=== PATIENT | female | born 1985 | race Caucasian/White ===

== ENCOUNTER 2020-10-18 09:53 | Emergency (ER) | payer OTHER, SELFPAY ==
[2020-10-18 10:04] VITALS: BP 144/97; PULSE 92; RESP 18; TEMP 36.8; O2SAT 98; BMI 30.9
--- NOTE | 2020-10-18 10:31 | ECG_ITS ---
Test Reason : CHEST DISCOMFORT Blood Pressure : / mmHG Vent. Rate : 084 BPM Atrial Rate : 084 BPM P-R Int : 132 ms QRS Dur : 082 ms QT Int : 378 ms P-R-T Axes : 065 012 022 degrees QTc Int : 446 ms Normal sinus rhythm Nonspecific ST abnormality Abnormal ECG When compared with ECG of 31-JUL-2020 20:13, T wave amplitude has decreased in Anterolateral leads Heart rate has increased Referred By: Madelyn Hurd Electronically Signed By:VIRAL MARTINEZ MD
--- NOTE | 2020-10-18 10:31 | XR_ITS ---
EXAMINATION: XR CHEST CLINICAL INFORMATION: Chest pain COMPARISON: Chest radiographs 07/31/2020, 12/23/2019 TECHNIQUE: Portable upright AP view of the chest was obtained. FINDINGS: The lungs are clear. There is no pneumothorax, pleural reaction, airspace consolidation, or effusion. The costophrenic sulci are clear. The heart is normal in size. The hilar and mediastinal contours and bony structures are unremarkable. XR/XR chest 1V IMPRESSION: Unremarkable examination.
--- NOTE | 2020-10-18 10:39 | ED_ITS ---
HPI - Chest Pain General Chief Complaint: Chest Pain Stated Complaint: chest pain, sob Time Seen by Provider: 10/18/20 10:31 History of Present Illness HPI narrative: Patient is a 34-year-old female presents today with having chest pain that is mid chest radiating to the left side. It lasts a few seconds each time it is improved with the breath. Patient has been having it for few days. No history of blood clot no history of leg swelling no history of control pills patient is from home. No history diabetes, hypertension, mi, family history of RI. No trauma. No coughing or congestion or upper respiratory symptoms. No diaphoresis. Related Data Allergies Allergy/AdvReac Type Severity Reaction Status Date / Time amitriptyline [AMITRIPTYLINE] Allergy Unknown UNKNOWN Unverified 08/08/20 19:39 Review of Systems Review of Systems: Constitutional: No Weight loss, No Fever, No Chills, No Night Sweats, No Fatigue, No Malaise ENT/Mouth: No Hearing loss, No Ear Pain, No Nasal Congestion, No Sinus Pain, No Hoarseness, No sore throat, No Rhinorrhea, No Swallowing Difficulty Eyes: No Eye Pain, No Swelling, No Redness, No Foreign Body, No Discharge, No Vision Changes Cardiovascular: No Chest Pain, No SOB, No Dyspnea on Exertion, No Orthopnea, No Edema, No Palpitations Respiratory: No Cough, No Sputum, No Wheezing, No Smoke Exposure, No Dyspnea Gastrointestinal: No Nausea, No Vomiting, No Diarrhea, No Constipation, No abd ominal Pain, No Hematochezia, No Melena Genitourinary: no irregular bleeding, No Dysuria, No Urinary Frequency, No Hematuria, No Urinary Incontinence, No Urgency, No Flank Pain, No Urinary Flow Changes, No Hesitancy Musculoskeletal: No joint pain, No Myalgias, No Joint Swelling Skin: No Skin Lesions, No rash Neuro: No Weakness, No Numbness, No Paresthesias, No Loss of Consciousness, No Dizziness, No Headache Psych: No Anxiety/Panic, No Depression, No SI/HI/AH/VH, No Social Issues, Heme/Lymph: No Bruising, No Bleeding,No Lymphadenopathy Endocrine: No Polyuria, No Polydipsia, No Temperature Intolerance Yes all other systems are reviewed and are negative [facility] Past Medical History Attestation statement: The following information was validated with the patient. Medical History Asthma HTN (hypertension) Migraine Surgical History Tubal ligation status Social History Social History Smoking Status: Never smoker Use of substances other than those prescribed or required for medical reasons: No Advance Directives: No Advance Directives Information Provided: No Physical Exam Vital Signs: Vital Signs: Last Vital Signs Temp 98.6 F 10/18/20 12:38 Pulse 88 10/18/20 13:56 Resp 16 10/18/20 13:56 BP 127/88 10/18/20 13:56 Pulse Ox 99 10/18/20 13:56 Body Mass Index 30.9 Appearance: Alert. Oriented X3. No acute distress. Eyes: Pupils equal, round and reactive to light. ENT: Pharynx normal. Neck: Normal inspection. Neck supple. No lymph nodes noted. No crepitus CVS: Normal heart rate and rhythm. Pulses normal. Normal S1 and S2 Respiratory: No respiratory distress. Breath sounds normal. No Wheezing. No rales Abdomen: Soft and nontender. No rigidity. No distention. good BS x4 Skin: Skin warm and dry. Normal skin color. Normal skin turgor. Extremities: No lower extremity edema. Neurovascular intact to all extremities. No Lacerations. No Rash Neuro: Oriented X 3. No motor deficit. No sensory deficit. Moving all extermities. No slurred speech MDM - Chest Pain MDM Narrative Medical decision making narrative: Patient's chest pain atypical for ACS. 34 years old. No significant cardiac risk. If troponin is negative patient's heart score is less than 3. Patient's troponin was negative. Her D-dimer however were slightly elevated. A CTA was done there is no evidence for PE no evidence for dissection no evidence for pneumothorax no evidence for rib fracture. There is no skin lesion to suggest patient has also will discharge patient home close follow-up outpatient basis Differential Diagnosis Differential diagnosis: Likely fracture of rib, pneumothorax, unstable angina pectoris, atypical chest pain, st elevation myocardial infarction and chest pain Medical Records Data Attestation: I reviewed the patient's medical records. Lab Data Attestation: I reviewed the patient's lab results. Result diagrams: 10/18/20 10:44 10/18/20 10:44 Labs: Lab Results 10/18/20 10/18/20 10/18/20 Range/Units 10:44 10:44 10:44 WBC 6.3 (4.8-10.8) X10*3/uL RBC 4.33 (4.20-5.50) X10*6/uL Hgb 13.1 (12.0-16.0) g/dl Hct 39.3 (37-47) % MCV 90.8 (80-98) fL MCH 30.3 (27.0-33.0) pg MCHC 33.3 (31.0-35.0) g/dl RDW 12.0 (11.0-16.0) % Plt Count 280 (160-400) X10*3/uL MPV 9.6 (9.4-12.3) fL Immature Gran % (Auto) 0.2 (0.0-0.4) % Neut % (Auto) 62.4 (45-73) % Lymph % (Auto) 30.8 (20-40) % [place] % (Auto) 5.7 (2-11) % Eos % (Auto) 0.6 (0-4) % Baso % (Auto) 0.3 (0-2) % Lymph # (Auto) 2.0 (1.2-4.9) X10*3/uL [place] # (Auto) 0.4 (0.1-1.2) X10*3/uL Eos # (Auto) 0.0 (0.0-0.4) X10*3/uL Baso # (Auto) 0.0 (0.0-0.2) X10*3/uL Abs Immat Gran (auto) 0.01 (0.00-0.03) X10*3/uL Absolute Neuts (auto) 4.0 (2.0-8.3) X10*3/uL Absolute Nucleated RBC 0.000 (0.0-0.012) X10*3/uL Nucleated RBC % (auto) 0.0 (0.0-0.2) /100WBC D-Dimer 422 NG/ML Hold Blue Top SEE NOTE Sodium 137 (135-145) mmol/L Potassium 4.3 (3.3-5.1) mmol/l Chloride 105 (96-108) mmol/L Carbon Dioxide 23 (22-29) mmol/L Anion Gap 13 (12-20) BUN 10 (9-16) mg/dL Creatinine 0.82 (0.5-1.4) mg/dL Estim Creat Clear Calc 101.7 Estimated GFR > 60 Random Glucose 114 (60-115) mg/dL Calcium 8.9 (8.4-10.2) mg/dL Troponin I High Sens (<3.5-17.0) ng/L Urine Test (NEGATIVE) 10/18/20 10/18/20 Range/Units 10:44 11:46 WBC (4.8-10.8) X10*3/uL RBC (4.20-5.50) X10*6/uL Hgb (12.0-16.0) g/dl Hct (37-47) % MCV (80-98) fL MCH (27.0-33.0) pg MCHC (31.0-35.0) g/dl RDW (11.0-16.0) % Plt Count (160-400) X10*3/uL MPV (9.4-12.3) fL Immature Gran % (Auto) (0.0-0.4) % Neut % (Auto) (45-73) % Lymph % (Auto) (20-40) % [place] % (Auto) (2-11) % Eos % (Auto) (0-4) % Baso % (Auto) (0-2) % Lymph # (Auto) (1.2-4.9) X10*3/uL [place] # (Auto) (0.1-1.2) X10*3/uL Eos # (Auto) (0.0-0.4) X10*3/uL Baso # (Auto) (0.0-0.2) X10*3/uL Abs Immat Gran (auto) (0.00-0.03) X10*3/uL Absolute Neuts (auto) (2.0-8.3) X10*3/uL Absolute Nucleated RBC (0.0-0.012) X10*3/uL Nucleated RBC % (auto) (0.0-0.2) /100WBC D-Dimer NG/ML Hold Blue Top Sodium (135-145) mmol/L Potassium (3.3-5.1) mmol/l Chloride (96-108) mmol/L Carbon Dioxide (22-29) mmol/L Anion Gap (12-20) BUN (9-16) mg/dL Creatinine (0.5-1.4) mg/dL Estim Creat Clear Calc Estimated GFR Random Glucose (60-115) mg/dL Calcium (8.4-10.2) mg/dL Troponin I High Sens < 3.5 (<3.5-17.0) ng/L Urine Test NEGATIVE (NEGATIVE) Discharge Plan Discharge Clinical Impression: Atypical chest pain Patient Disposition: Home, Self-Care Instructions: Chest Pain (ED) Referrals: Calvin Chavze MD [Primary Care Provider] - 2 days
[2020-10-18] MEDS: Aspirin 81 MG TAB.CHEW 324 MG PO (10:48)
[2020-10-18 10:49] VITALS: BP 119/78; PULSE 98; RESP 20; O2SAT 97
[2020-10-18 10:52] LABS: MANUAL DIFF FLAG NO
[2020-10-18 10:54] LABS: Basophils Percent Auto 0.3 % (0-2); Eosinophils Percent Auto 0.6 % (0-4); Hematocrit 39.3 % (37-47); Hemoglobin 13.1 g/dl (12.0-16.0); Imm Gran Abs Auto 0.01 X10*3/uL (0.00-0.03); Imm Gran Pct Auto 0.2 % (0.0-0.4); Lymphocytes Percent Auto 30.8 % (20-40); Mean Corpuscular HGB Conc 33.3 g/dl (31.0-35.0); Mean Corpuscular Hemoglobin 30.3 pg (27.0-33.0); Mean Corpuscular Volume 90.8 fL (80-98); Mean Platelet Volume 9.6 fL (9.4-12.3); Monocytes Absolute Auto 0.4 X10*3/uL (0.1-1.2); Monocytes Percent Auto 5.7 % (2-11); Neutrophils Percent Auto 62.4 % (45-73); Platelet Count 280 X10*3/uL (160-400); Red Blood Count 4.33 X10*6/uL (4.20-5.50); White Blood Count 6.3 X10*3/uL (4.8-10.8)
[2020-10-18 11:06] LABS: D Dimer 422 NG/ML
[2020-10-18 11:25] LABS: Anion Gap 13 (12-20); Blood Urea Nitrogen 10 mg/dL (9-16); Calcium 8.9 mg/dL (8.4-10.2); Carbon Dioxide 23 mmol/L (22-29); Chloride 105 mmol/L (96-108); Creatinine Clr Calc Pharmacy 101.7; Estimated Glomerular Filt Rate > 60; Glucose Random 114 mg/dL (60-115); Potassium 4.3 mmol/l (3.3-5.1); Sodium 137 mmol/L (135-145)
--- NOTE | 2020-10-18 11:28 | CT_ITS ---
EXAMINATION: CT ANGIOGRAM OF THE CHEST WITH AND WITHOUT CONTRAST (CT PULMONARY ANGIOGRAM FOR PE) CLINICAL INFORMATION: Chest pain COMPARISON: Chest radiographs 10/18/2020, CTA chest 07/31/2020 TECHNIQUE: Prior to contrast administration, noncontrast localization images were obtained. Subsequently, multidetector volumetric imaging was performed from the thoracic inlet to below the diaphragms following the administration of 65 mL Omnipaque 350 intravenous contrast. Sagittal, coronal, and MIP oblique sagittal reformatted images were obtained on the CT workstation, uploaded to PACS, and reviewed. This CT examination was performed using dose optimization techniques as appropriate, variously including the following: *Automated exposure control *Adjustment of mA and/or kV according to patient size (this includes techniques or standardized protocols for targeted exams where dose is matched to indication/reason for exam; i.e. extremities or head) *Use of iterative reconstruction technique Total exam dose-length product 311 mGy-cm FINDINGS: QUALITY OF STUDY/CONTRAST BOLUS: Satisfactory. PULMONARY ARTERIES: No central or segmental pulmonary emboli. THORACIC AORTA: No aneurysm or dissection. LUNG: No focal consolidation, nodules or masses. No pneumothorax. PLEURA: No pleural effusion or pneumothorax. MEDIASTINUM: Normal heart size. No pericardial effusion. No hilar or mediastinal lymphadenopathy. No evidence of septal bowing or right heart strain. CHEST WALL/AXILLA: No axillary or internal mammary lymphadenopathy. OSSEOUS STRUCTURES: No acute or suspicious osseous abnormality. UPPER ABDOMEN: Unremarkable. No reflux of contrast into the hepatic veins to suggest elevated right heart pressures. Stable subcentimeter nodule left subphrenic space likely splenule. CT/CT angio chest PE protocol IMPRESSION: 1. No pulmonary embolism or thoracic aortic dissection. 2. Lungs clear. VTE: negative
[2020-10-18 11:31] LABS: Troponin-I High Sensitivity < 3.5 ng/L (<3.5-17.0)
--- NOTE | 2020-10-18 11:49 | PC.NURSE ---
pt reports no improvement in her chest pain, pain is still 8/10, sharp/stabbing that comes and goes, ns on the monitor at this time
[2020-10-18 11:56] LABS: UPreg QC Valid YES; Urine Pregnancy NEGATIVE (NEGATIVE)
[2020-10-18 12:38] VITALS: BP 118/85; PULSE 85; RESP 18; TEMP 37; O2SAT 99
--- NOTE | 2020-10-18 12:40 | PC.NURSE ---
patient a&ox3, vss, playground monitor nsr 80s-90s, pt states she has 8/10 pain under rt breast area, will notify provider and continue to monitor.
[2020-10-18 13:56] VITALS: BP 127/88; PULSE 88; RESP 16; O2SAT 99
[2020-10-18] MEDS: iohexoL 350 MG/ML 100 ML INFUS..BTL 65 ML IV (14:20)
--- NOTE | 2020-10-18 14:45 | ED_ITS ---
HPI - Chest Pain General Chief Complaint: Chest Pain Stated Complaint: chest pain, sob Time Seen by Provider: 10/18/20 10:31 Related Data Previous Rx's Medication Instructions Recorded albuterol sulfate 90 mcg/actuation 2 puff INHALATION Q6H PRN #8.5 g 12/07/21 aerosol inhaler Allergies Allergy/AdvReac Type Severity Reaction Status Date / Time amitriptyline [AMITRIPTYLINE] Allergy Unknown UNKNOWN Verified 10/20/21 18:07 [facility] Past Medical History Medical History Asthma HTN (hypertension) Migraine Surgical History Tubal ligation status Physical Exam Vital Signs: Vital Signs: Last Vital Signs Temp 98.6 F 10/18/20 12:38 Pulse 88 10/18/20 13:56 Resp 16 10/18/20 13:56 BP 127/88 10/18/20 13:56 Pulse Ox 99 10/18/20 13:56 BMI result Body Mass Index 30.9 MDM - Chest Pain Lab Data Result diagrams: 10/18/20 10:44 10/18/20 10:44 Labs: Lab Results 10/18/20 10/18/20 10/18/20 Range/Units 10:44 10:44 10:44 WBC 6.3 (4.8-10.8) X10*3/uL RBC 4.33 (4.20-5.50) X10*6/uL Hgb 13.1 (12.0-16.0) g/dl Hct 39.3 (37-47) % MCV 90.8 (80-98) fL MCH 30.3 (27.0-33.0) pg MCHC 33.3 (31.0-35.0) g/dl RDW 12.0 (11.0-16.0) % Plt Count 280 (160-400) X10*3/uL MPV 9.6 (9.4-12.3) fL Immature Gran % (Auto) 0.2 (0.0-0.4) % Neut % (Auto) 62.4 (45-73) % Lymph % (Auto) 30.8 (20-40) % [place] % (Auto) 5.7 (2-11) % Eos % (Auto) 0.6 (0-4) % Baso % (Auto) 0.3 (0-2) % Lymph # (Auto) 2.0 (1.2-4.9) X10*3/uL [place] # (Auto) 0.4 (0.1-1.2) X10*3/uL Eos # (Auto) 0.0 (0.0-0.4) X10*3/uL Baso # (Auto) 0.0 (0.0-0.2) X10*3/uL Abs Immat Gran (auto) 0.01 (0.00-0.03) X10*3/uL Absolute Neuts (auto) 4.0 (2.0-8.3) X10*3/uL Absolute Nucleated RBC 0.000 (0.0-0.012) X10*3/uL Nucleated RBC % (auto) 0.0 (0.0-0.2) /100WBC D-Dimer 422 NG/ML Hold Blue Top SEE NOTE Sodium 137 (135-145) mmol/L Potassium 4.3 (3.3-5.1) mmol/l Chloride 105 (96-108) mmol/L Carbon Dioxide 23 (22-29) mmol/L Anion Gap 13 (12-20) BUN 10 (9-16) mg/dL Creatinine 0.82 (0.5-1.4) mg/dL Estim Creat Clear Calc 101.7 Estimated GFR > 60 Random Glucose 114 (60-115) mg/dL Calcium 8.9 (8.4-10.2) mg/dL Troponin I High Sens (<3.5-17.0) ng/L Urine Test (NEGATIVE) 10/18/20 10/18/20 Range/Units 10:44 11:46 WBC (4.8-10.8) X10*3/uL RBC (4.20-5.50) X10*6/uL Hgb (12.0-16.0) g/dl Hct (37-47) % MCV (80-98) fL MCH (27.0-33.0) pg MCHC (31.0-35.0) g/dl RDW (11.0-16.0) % Plt Count (160-400) X10*3/uL MPV (9.4-12.3) fL Immature Gran % (Auto) (0.0-0.4) % Neut % (Auto) (45-73) % Lymph % (Auto) (20-40) % [place] % (Auto) (2-11) % Eos % (Auto) (0-4) % Baso % (Auto) (0-2) % Lymph # (Auto) (1.2-4.9) X10*3/uL [place] # (Auto) (0.1-1.2) X10*3/uL Eos # (Auto) (0.0-0.4) X10*3/uL Baso # (Auto) (0.0-0.2) X10*3/uL Abs Immat Gran (auto) (0.00-0.03) X10*3/uL Absolute Neuts (auto) (2.0-8.3) X10*3/uL Absolute Nucleated RBC (0.0-0.012) X10*3/uL Nucleated RBC % (auto) (0.0-0.2) /100WBC D-Dimer NG/ML Hold Blue Top Sodium (135-145) mmol/L Potassium (3.3-5.1) mmol/l Chloride (96-108) mmol/L Carbon Dioxide (22-29) mmol/L Anion Gap (12-20) BUN (9-16) mg/dL Creatinine (0.5-1.4) mg/dL Estim Creat Clear Calc Estimated GFR Random Glucose (60-115) mg/dL Calcium (8.4-10.2) mg/dL Troponin I High Sens < 3.5 (<3.5-17.0) ng/L Urine Test NEGATIVE (NEGATIVE) Discharge Plan Discharge Clinical Impression: Atypical chest pain Patient Disposition: Home, Self-Care Instructions: Chest Pain (ED) Prescriptions: No Action albuterol sulfate 90 mcg/actuation HFA aerosol inhaler 2 puff inhalation Q6H PRN (Reason: shortness of breath or wheezing) Qty: 8.5 0RF Referrals: Calvin Chavez MD [Primary Care Provider] - 2 days Stand Alone Forms: Work/School Release Interventions: ED Discharge Assessment Last Done: 10/18/20 14:57 Discharge Date/Time: 10/18/20 14:57
== END 2020-10-18 14:57 | disposition home or self-care (01) ==
PROVIDERS: Emergency Provider Emergency Medicine Emergency Medical Services; PCP Family Medicine
DX: R07.89 Other chest pain (principal); R06.02 Shortness of breath
CPT/HCPCS: 36415; 71045; 71275; 80048; 81025; 84484; 85025; 85379; 93005; 99284; Q9967

== ENCOUNTER 2021-03-03 17:04 | Emergency (ER) | payer OTHER, SELFPAY | END 2021-03-03 19:50 | disposition left against medical advice (07) | PROVIDERS: Emergency Provider Emergency Medicine; PCP Family Medicine | DX: R10.9 Unspecified abdominal pain (principal); I10 Essential (primary) hypertension; J45.909 Unspecified asthma, uncomplicated ==

== ENCOUNTER 2021-03-04 18:42 | Emergency (ER) | payer OTHER, SELFPAY | END 2021-03-04 20:09 | disposition left against medical advice (07) | PROVIDERS: Emergency Provider Emergency Medicine; PCP Family Medicine | DX: R10.9 Unspecified abdominal pain (principal) ==

== ENCOUNTER 2021-08-27 18:29 | Emergency (ER) | payer OTHER, SELFPAY | END 2021-08-27 21:20 | disposition left against medical advice (07) | PROVIDERS: Emergency Provider Emergency Medicine; PCP Family Medicine | DX: R52 Pain, unspecified (principal); J02.9 Acute pharyngitis, unspecified; R51.9 Headache, unspecified ==

== ENCOUNTER 2021-10-20 17:50 | Emergency (ER) | payer OTHER, SELFPAY ==
--- NOTE | ~2021-10-20 | XR_ITS ---
EXAMINATION: XR CHEST CLINICAL INFORMATION: Cough COMPARISON: Chest CT 10/18/2020 TECHNIQUE: Frontal view of the chest was obtained. FINDINGS: No significant abnormality is noted involving the heart, lungs, mediastinum, bony thorax or soft tissues. XR/XR chest 1V IMPRESSION: No acute pulmonary disease.
[2021-10-20 18:07] VITALS: BP 151/99; PULSE 86; RESP 18; TEMP 36.6; O2SAT 100; BMI 34.1
[2021-10-20 20:20] VITALS: BP 139/103; PULSE 87; RESP 18; TEMP 36.9; O2SAT 99
[2021-10-20 20:37] LABS: COVID-19 Test Negative (Negative)
--- NOTE | 2021-10-20 21:15 | ED_ITS ---
HPI - URI/Sore Throat General Chief Complaint: Upper Respiratory Symptoms Stated Complaint: flu like Source: patient Mode of arrival: ambulatory Limitations: no limitations History of Present Illness HPI Narrative: 35-year-old female presents to ED for COVID testing due to being exposed to her who symptomatic and he was exposed to a friend who tested positive for COVID. Patient's only complaint is runny nose and body aches. Patient states no chest pain, leg swelling, calf pain, or coughing up blood. Related Data Allergies Allergy/AdvReac Type Severity Reaction Status Date / Time amitriptyline [AMITRIPTYLINE] Allergy Unknown UNKNOWN Verified 10/20/21 18:07 Review of Systems Review of Systems: Yes all other systems are reviewed and are negative Constitutional: Constitutional: Reports as per HPI, Reports no additional constitutional complaints and Reports body ache(s) Eyes: Eyes: Reports as per HPI and Reports no additional eye complaints ENT: Reports system reviewed and no additional complaints, except as documented, Reports as per HPI and Reports nasal congestion Cardiovascular: Cardiovascular: Reports as per HPI and Reports no additional cardiovascular complaints Respiratory: Respiratory: Reports as per HPI and Reports no additional respiratory complaints Gastrointestinal: Gastrointestinal: Reports as per HPI and Reports no additional gastrointestinal complaints Genitourinary: Genitourinary: Reports no additional female genitourinary complaints and Reports as per HPI Musculoskeletal: Musculoskeletal: Reports no additional musculoskeletal complaints and Reports as per HPI Neurologic: Reports system reviewed and no additional complaints, except as documented and Reports as per HPI Psychiatric: Psychiatric: Reports no additional psychiatric complaints and Reports as per HPI PMFSH Past Medical History Medical History Asthma HTN (hypertension) Migraine Surgical History Tubal ligation status Social History Social History Advance Directives: No Advance Directives Information Provided: Yes Patient : No Physical Exam Vital Signs: Vital Signs: Last Vital Signs Temp 98.5 F 10/20/21 20:20 Pulse 87 10/20/21 20:20 Resp 18 10/20/21 20:20 BP 139/103 H 10/20/21 20:20 Pulse Ox 99 10/20/21 20:20 Body Mass Index 34.1 Const: General: cooperative, healthy appearing, comfortable, no acute distress, well developed, alert, awake and Physically active Orientation/consciousness: patient oriented x3 HENMT: Head: Yes normal to inspection, Yes No palpable skull fracture present, Yes normocephalic, Yes atraumatic and No abrasion Ears: hearing grossly normal bilaterally, external ears normal, TM's normal bilaterally, EAC's normal, mastoids normal and no periauricular adenopathy Throat: Yes posterior oropharynx normal, Yes tonsils normal and Yes uvula midline Eyes: General: appearance normal, both eyes and all related structures Neck: Neck: Yes normal visual inspection, Yes full ROM, Yes no lymphadenopathy, Yes no meningeal signs, Yes trachea midline, Yes supple, No anterior neck swelling and No tender Chest: Chest palpation & inspection: normal inspection of the chest and normal palpation of entire chest wall Resp: Effort & Inspection: normal respiratory effort and able to speak in complete sentences Auscultation: clear to auscultation bilaterally Cardio: Jugular venous distension: no JVD Heart sounds: S1 normal heart sound present and S2 normal heart sound present GI: Inspection: Yes normal to inspection and No abdominal wall ecchymosis Palpation (GI): Soft to palpation, not firm, nontender, no guarding and not rigid : General: No CVA tenderness and Yes no CVA tenderness Back/Spine/Pelvis: Back: no CVA tenderness, No CVA tenderness and No back tenderness Skin: General skin exam: no rashes or lesions noted and elasticity normal Neuro: General: patient oriented x3, gait normal, no meningeal signs and CN's II-XI intact bilaterally Cranial nerves: Yes CN's II-XII intact bilaterally Extrem: General: Yes normal to inspection and Yes full ROM Psych: Appearance: grossly normal, well kempt and not disheveled Course Course Course Narrative: Patient will have COVID swab and chest x-ray ordered. Reevaluation(s) Reevaluation #1: COVID and chest x-ray all normal patient to be discharged. Patient informed of her elevated blood pressure and told to follow up with her PCP in regards to her blood pressure. MDM - URI/Sore Throat MDM Narrative Medical decision making narrative: Viral syndrome Lab Data Labs: Lab Results 10/20/21 Range/Units 20:13 COVID-19 (DE) Negative (Negative) COVID-19 Clin Com See Note Discharge Plan Discharge Clinical Impression: Viral syndrome, Upper respiratory infection Patient Disposition: Home, Self-Care Instructions: Upper Respiratory Infection (ED), Viral Syndrome (ED) Additional Instructions: Return to the ED immediately for any swelling of lower extremities, coughing up blood, cyst chest pain, shortness of breath on exertion, weakness, dizziness, or any other concerning symptoms. Your COVID swab came back negative. This may be a false negative. Recommend retesting for COVID-19 in 72 hours if symptoms are not improved. Stand Alone Forms: Work/School Release Interventions: ED Discharge Assessment Last Done: 10/20/21 21:33 Discharge Date/Time: 10/20/21 21:37 Print Language: Armenian
== END 2021-10-20 21:37 | disposition home or self-care (01) ==
PROVIDERS: Emergency Provider Emergency Medicine; PCP Family Medicine
DX: B34.9 Viral infection, unspecified (principal); J06.9 Acute upper respiratory infection, unspecified; Z20.822 Contact with and (suspected) exposure to COVID-19
CPT/HCPCS: 36415; 71045; 87635; 99283; 99284

== ENCOUNTER 2021-11-20 08:55 | Outpatient (REF) | payer OTHER, SELFPAY ==
[2021-11-20 09:56] LABS: COVID-19 Test Negative (Negative)
== END 2021-11-20 08:56 | disposition home or self-care (01) ==
LOC: HO.LAB 08:55
PROVIDERS: Visit Provider Internal Medicine
DX: Z20.822 Contact with and (suspected) exposure to COVID-19 (principal)
CPT/HCPCS: 36415; 87635; C9803

== ENCOUNTER 2021-11-23 18:19 | Emergency (ER) | payer OTHER, SELFPAY ==
[2021-11-23 18:35] VITALS: BP 136/95; PULSE 97; RESP 18; TEMP 36.7; O2SAT 99; BMI 34.1
[2021-11-23 19:24] LABS: Appearance Urine HAZY; Color Urine YELLOW; Glucose Urine UA NEG (NEG); Leukocyte Esterase Urine TRACE (NEG); Nitrite Urine NEG (NEG); Specific Gravity - Urine 1.025 (1.005-1.025); UACC Culture Trigger YES; Urine Blood TRACE (NEG); Urine Ketones 5 MG/DL (NEG); Urine Protein TRACE MG/DL (NEG-TRACE)
[2021-11-23 19:32] LABS: Amorphous Sediment Urine 1+ /LPF; Bacteria Urine 1+ /LPF; Mucus Urine 1+ /LPF; RBC Urine 0-2 /HPF (0); Squamous Epithelial Cell Urine 2+ /LPF
[2021-11-23 20:37] LABS: MANUAL DIFF FLAG NO
[2021-11-23 20:39] LABS: Basophils Percent Auto 0.3 % (0-2); Eosinophils Percent Auto 0.5 % (0-4); Hematocrit 42.5 % (37.0-47.0); Imm Gran Abs Auto 0.01 X10*3/uL (0.00-0.03); Imm Gran Pct Auto 0.2 % (0.0-0.4); Lymphocytes Absolute Auto 2.6 X10*3/uL (1.2-4.9); Lymphocytes Percent Auto 39.1 % (20-40); Mean Corpuscular HGB Conc 32.9 g/dl (31.0-35.0); Mean Corpuscular Hemoglobin 29.4 pg (27.0-33.0); Mean Corpuscular Volume 89.1 fL (80.0-98.0); Mean Platelet Volume 9.9 fL (9.4-12.3); Monocytes Absolute Auto 0.4 X10*3/uL (0.1-1.2); Monocytes Percent Auto 5.4 % (2-11); Neutrophils Absolute Auto 3.6 x10*3/uL (2.0-8.3); Neutrophils Percent Auto 54.5 % (45-73); Platelet Count 278 X10*3/uL (160-400); Red Blood Count 4.77 X10*6/uL (4.20-5.50); Red Cell Distribution Width 13.2 % (11.0-16.0); White Blood Count 6.6 X10*3/uL (4.8-10.8)
[2021-11-23 20:59] LABS: HCG Quantitative < 2 mIU/mL
[2021-11-23 21:11] LABS: Alanine Aminotransferase 285 U/L (0-31); Albumin Level 4.5 g/dL (3.5-5.0); Alkaline Phosphatase 79 U/L (39-117); Anion Gap 11 (12-20); Aspartate Amino Transferase 193 U/L (5-31); Bilirubin Total 0.7 mg/dL (0.0-1.0); Blood Urea Nitrogen 13 mg/dL (9-16); Calcium 9.9 mg/dL (8.4-10.2); Carbon Dioxide 26 mmol/L (22-29); Chloride 107 mmol/L (96-108); Creatinine Clr Calc Pharmacy 101.4; Estimated Glomerular Filt Rate > 60; Glucose Random 101 mg/dL (60-115); Lipase 66 U/L (8-78); Potassium 4.6 mmol/L (3.3-5.1); Sodium 139 mmol/L (135-145); Total Protein 7.9 g/dL (6.5-8.0)
== END 2021-11-24 01:20 | disposition left against medical advice (07) ==
PROVIDERS: Emergency Provider Emergency Medicine; PCP Family Medicine
DX: R11.2 Nausea with vomiting, unspecified (principal)
CPT/HCPCS: 36415; 80053; 81001; 83690; 84702; 85025; 87086; 87147; 99283

== ENCOUNTER 2021-12-07 08:48 | Emergency (ER) | payer OTHER, SELFPAY ==
[2021-12-07 09:05] VITALS: BP 129/87; PULSE 96; RESP 16; TEMP 35.5; O2SAT 99; BMI 34.0
--- NOTE | 2021-12-07 09:08 | ED_ITS ---
HPI - URI/Sore Throat General Chief Complaint: Upper Respiratory Symptoms Stated Complaint: covid symptoms Time Seen by Provider: 12/07/21 09:02 Source: patient Mode of arrival: ambulatory Limitations: no limitations History of Present Illness HPI Narrative: 36-year-old female past medical history significant for asthma, hypertension, presents to the emergency department requesting a COVID test. She is experiencing subjective fevers, chills, body aches, malaise, fatigue, headache, sore throat x 3 days. She tells me that her 2 children at home are sick with COVID. She is vaccinated Pfizer x2.?Denies SOB, CP, RODRIGUES, weakness. Eating and drinking well. In good spirits. No other complaints at this time. MD elicited complaint: fever, sore throat and nasal congestion Onset (ago): day(s) Consistency: constant Severity: mild Able to tolerate fluids by mouth: Yes Exacerbating factors: nothing Relieving factors: nothing Context: sick contacts (Children at home) Associated symptoms: fever (Subjective), chills, headache (Gradual, feels like her typical) and sore throat Treatments prior to arrival: none Related Data Previous Rx's Medication Instructions Recorded albuterol sulfate 90 mcg/actuation 2 puff INHALATION Q6H PRN #8.5 g 12/07/21 aerosol inhaler Allergies Allergy/AdvReac Type Severity Reaction Status Date / Time amitriptyline [AMITRIPTYLINE] Allergy Unknown UNKNOWN Verified 10/20/21 18:07 Review of Systems Review of Systems: Constitutional : positive Fever, positive Chills, positive fatigue, positive Malaise ENT/Mouth : positive sore throat, No runny nose Eyes: No Discharge Cardiovascular : No Chest Pain, No SOB Respiratory : No Cough, No Sputum Gastrointestinal : No Nausea, No Vomiting, No Diarrhea Genitourinary : No Dysuria, No Urinary Frequency Musculoskeletal : positive Myalgia Skin : No rash Neuro : positive Headache, no vision changes, no dizziness Yes all other systems are reviewed and are negative [facility] Past Medical History Attestation statement: The following information was validated with the patient. Source: old records reviewed and nursing notes reviewed Medical History Asthma HTN (hypertension) Migraine Surgical History Tubal ligation status Physical Exam Vital Signs: Vital Signs: Last Vital Signs Temp 96 F L 12/07/21 09:05 Pulse 96 12/07/21 09:05 Resp 16 12/07/21 09:05 BP 129/87 12/07/21 09:05 Pulse Ox 99 12/07/21 09:05 BMI result Body Mass Index 34.0 VSS Appearance: Alert.? Oriented X3.? No acute distress.? Head: Normocephalic, atraumatic, no step-offs or deformities Eyes: Pupils equal, round and reactive to light.? ENT: Pharynx normal.? Neck: Normal inspection.? Neck supple.? CVS: Normal heart rate and rhythm.? Pulses normal.? Respiratory: No respiratory distress.? Breath sounds normal.? Abdomen: Soft and nontender.? Skin: Skin warm and dry.? Normal skin color.? Normal skin turgor.? Extremities: No lower extremity edema.? No calf ttp. 5/5 strength to bilateral upper and lower extremities Neuro: Oriented X 3.? No motor deficit.? No sensory deficit. Course Reevaluation(s) Reevaluation #1: Patient is noted to be COVID neagtive, however, she has sick contacts at home and has only been experiencing symptoms for 3 days, it might be too soon to test. Vital signs are stable however.? I have given patient strict return precautions.? I have educated on diagnosis and treatment plan.? I have given them red flag symptoms and have told him to return with new or worsening symptoms.? I have outlined these on their discharge. Unlikely that this is ACS, patient denies chest pain. Lungs are clear unlikely pneumonia. Patient's vital signs stable, patient is not tachycardic, tachypneic or hypoxic, no calf tenderness to palpation, unlikely PE. Time: 09:17 MDM - URI/Sore Throat MDM Narrative Medical decision making narrative: 911 36 yo F presents with COVID like symptoms. Family member sick at home. Vaccinated with Pfizer x2. Physical examination benign Plan COVID test Medical Records Attestation: I reviewed the patient's medical records. Lab Data Attestation: I reviewed the patient's lab results. Labs: Lab Results 12/07/21 Range/Units 09:08 COVID-19 (DE) Negative (Negative) COVID-19 Clin Com See Note Critical Care Time Critical Care Time Critical Care Time: No Discharge Plan Discharge Clinical Impression: Upper respiratory infection Patient Disposition: Home, Self-Care Instructions: COVID-19 (Coronavirus Disease 2019) (ED) Additional Instructions: Take your medications as prescribed. If you were prescribed antibiotics today, it is important that you take your medication to their entirety, do not skip any doses, do not finish them early. Today you tested negative for COVID-19, however, your experiencing symptoms that are consistent with COVID and you have sick contacts therefore we will treat was if you are positive. Take Ibuprofen or Tylenol as needed for fevers or body aches. Quarantine for 5 days and ensure you wear a mask. After 5 days you should wear a mask for 5 days after that. Practice social distancing and good hand hygiene. Drink plenty of fluids. Follow-up with your primary care provider this week. Return to the emergency department with new or worsening symptoms. In case of emergency call 911 You can purchase a pulse oximeter from your local pharmacy or grocery store, and monitor your oxygen saturation if it goes below 94% you should return to the emergency department for further evaluation. Prescriptions: New albuterol sulfate 90 mcg/actuation HFA aerosol inhaler 2 puff inhalation Q6H PRN (Reason: shortness of breath or wheezing) Qty: 8.5 RF: 0 Referrals: Calvin Chavez MD [Primary Care Provider] - 2 days Stand Alone Forms: Work/School Release
[2021-12-07 09:50] LABS: COVID-19 Test Negative (Negative); IDNOW Serial# 55D5AD1C
== END 2021-12-07 10:17 | disposition home or self-care (01) ==
LOC: HO.ED 10:10
PROVIDERS: Physician Assistant; Emergency Provider Emergency Medicine; PCP Family Medicine
DX: J06.9 Acute upper respiratory infection, unspecified (principal); R50.9 Fever, unspecified; R51.9 Headache, unspecified; Z20.822 Contact with and (suspected) exposure to COVID-19; Z79.899 Other long term (current) drug therapy
CPT/HCPCS: 87635; 99283

== ENCOUNTER 2021-12-10 09:36 | Outpatient (REF) | payer OTHER, SELFPAY ==
[2021-12-10 10:21] LABS: COVID-19 Test Negative (Negative); IDNOW Serial# 16C4AD1C
== END 2021-12-10 09:37 | disposition home or self-care (01) ==
LOC: HO.LAB 09:36
PROVIDERS: Visit Provider Internal Medicine
DX: Z20.822 Contact with and (suspected) exposure to COVID-19 (principal)
CPT/HCPCS: 87635; C9803

== ENCOUNTER 2022-04-26 05:52 | Emergency (ER) | payer OTHER, SELFPAY ==
--- NOTE | ~2022-04-26 | XR_ITS ---
EXAMINATION: CR CHEST CLINICAL INFORMATION: Chest pain. COVID positive patient. COMPARISON: Chest x-ray dated 10/20/2021 and 10/18/2020. TECHNIQUE: AP upright portable view of the chest was obtained. FINDINGS: EKG leads overlie the chest. The cardiomediastinal silhouette is within normal limits in size. Lungs bilaterally are symmetrically expanded and clear. No focal consolidation, effusion or pneumothorax is seen. Bony structures are unremarkable. XR/XR chest 1V IMPRESSION: Unremarkable examination.
[2022-04-26 06:02] VITALS: BP 153/103; PULSE 115; RESP 20; TEMP 36.8; O2SAT 97; BMI 32.5
--- NOTE | 2022-04-26 06:05 | ECG_ITS ---
Test Reason : CHEST PAIN Blood Pressure : / mmHG Vent. Rate : 105 BPM Atrial Rate : 105 BPM P-R Int : 134 ms QRS Dur : 084 ms QT Int : 338 ms P-R-T Axes : 066 005 -01 degrees QTc Int : 446 ms Sinus tachycardia Nonspecific ST abnormality Abnormal ECG When compared with ECG of 18-OCT-2020 10:06, No significant change was found Referred By: Generic ED Physician Electronically Signed By:PADMINI MATOS MD
[2022-04-26 06:35] VITALS: BP 129/83; PULSE 98; RESP 18; TEMP 37.7; O2SAT 98
[2022-04-26 06:35] LABS: MANUAL DIFF FLAG NO
[2022-04-26 06:40] LABS: Basophils Percent Auto 0.5 % (0-2); Eosinophils Percent Auto 0.5 % (0-4); Imm Gran Abs Auto 0.03 X10*3/uL (0.00-0.03); Imm Gran Pct Auto 0.5 % (0.0-0.4); Lymphocytes Absolute Auto 0.7 X10*3/uL (1.2-4.9); Lymphocytes Percent Auto 10.3 % (20-40); Mean Corpuscular HGB Conc 33.3 g/dl (31.0-35.0); Mean Corpuscular Hemoglobin 28.6 pg (27.0-33.0); Mean Corpuscular Volume 85.7 fL (80.0-98.0); Mean Platelet Volume 10.3 fL (9.4-12.3); Monocytes Absolute Auto 0.8 X10*3/uL (0.1-1.2); Monocytes Percent Auto 12.5 % (2-11); Neutrophils Absolute Auto 4.8 x10*3/uL (2.0-8.3); Neutrophils Percent Auto 75.7 % (45-73); Platelet Count 228 X10*3/uL (160-400); Red Blood Count 4.55 X10*6/uL (4.20-5.50); Red Cell Distribution Width 14.1 % (11.0-16.0); White Blood Count 6.3 X10*3/uL (4.8-10.8)
[2022-04-26 06:41] LABS: COVID-19 Test Positive (Negative)
[2022-04-26 06:49] LABS: Anion Gap 12 (12-20); Blood Urea Nitrogen 12 mg/dL (9-16); Calcium 8.8 mg/dL (8.4-10.2); Carbon Dioxide 23 mmol/L (22-29); Chloride 106 mmol/L (96-108); Estimated Glomerular Filt Rate > 60; Glucose Random 120 mg/dL (60-115); IDNOW Serial# 16C4AD1C; Influenza A Negative (Negative); Influenza B2 Negative (Negative); Potassium 4.2 mmol/L (3.3-5.1); Sodium 137 mmol/L (135-145)
[2022-04-26 06:54] LABS: Troponin-I High Sensitivity < 3.5 ng/L (<3.5-17.0)
[2022-04-26] MEDS: Benzonatate 100 MG CAPSULE 200 MG PO (06:58)
[2022-04-26] MEDS: Acetaminophen 325 MG TABLET 975 MG PO (06:59)
--- NOTE | 2022-04-26 07:01 | ED_ITS ---
HPI - Chest Pain General Chief Complaint: Chest Pain Stated Complaint: chest & lung pain, cough, asthmatic, n/d (04/24) Time Seen by Provider: 04/26/22 06:46 Source: patient and family () Mode of arrival: ambulatory History of Present Illness HPI narrative: 36-year-old female with history of asthma presents with nonstop coughing that has resulted in chest wall pain as well pain on breathing. Patient is been vaccinated in boosted for COVID-19 and also reports concomitant congestion, mild nausea, diarrhea and headache as well as body aches. Related Data Previous Rx's Medication Instructions Recorded albuterol sulfate 90 mcg/actuation 2 puff INHALATION Q6H PRN #8.5 g 12/07/21 aerosol inhaler benzonatate 200 mg capsule 200 mg PO TID PRN #14 cap 04/26/22 Allergies Allergy/AdvReac Type Severity Reaction Status Date / Time amitriptyline [AMITRIPTYLINE] Allergy Unknown UNKNOWN Verified 04/26/22 06:04 Review of Systems Review of Systems: Pertinent positives and negatives as stated in HPI 10 point review of systems otherwise negative. PMFSH Past Medical History Source: nursing notes reviewed Medical History Asthma HTN (hypertension) Migraine Surgical History Tubal ligation status Social History Social History Alcohol intake: current Alcohol intake frequency: holidays/special occasions only Patient Tobacco Use Status: Never used Tobacco Use of substances other than those prescribed or required for medical reasons: Yes Substance Use Type: Marijuana Substance Use Frequency: Daily Advance Directives: No Advance Directives Information Provided: No Physical Exam Vital Signs: Vital Signs: Last Vital Signs Temp 99.8 F 04/26/22 06:35 Pulse 98 04/26/22 06:35 Resp 18 04/26/22 06:35 BP 129/83 04/26/22 06:35 Pulse Ox 98 04/26/22 06:35 BMI result Body Mass Index 32.5 VITAL SIGNS: Reviewed. GENERAL: Well developed, well nourished, in no acute distress. HEAD: Normocephalic/atraumatic EYES: PERRLA, EOMI EARS: Ext canals without abnormality, TMs non-bulging and non-erythematous NOSE: Nares patent bilateral OROPHARYNX: no oral lesions noted, posterior pharynx clear and non-erythematous without noted tonsillar enlargement/erythema/exudates NECK: Supple, no adenopathy LUNGS: Normal breath sounds, mild tachypnea without significant expiratory wheeze/rhonchi/rales. SpO2<98> CARDIOVASCULAR: Regular rate and rhythm without noted murmurs ABDOMEN: Soft, non-tender, non-distended with bowel sounds. NEUROLOGIC: Alert and oriented x 4. Course Course Course Narrative: 36-year-old female with history and clinical presentation consistent with viral syndrome and on review of all investigations she has noted COVID-19 positivity. Patient was provided with combination analgesics as well as an antitussive and is otherwise discharged home in stable condition without evidence asthma exacerbation, oxygenating well on room air. MDM - Chest Pain Lab Data Result diagrams: 04/26/22 06:04/26/22 06:29 Labs: Lab Results 04/26/22 04/26/22 04/26/22 Range/Units 06:29 06:29 06:29 WBC 6.3 (4.8-10.8) X10*3/uL RBC 4.55 (4.20-5.50) X10*6/uL Hgb 13.0 (12.0-16.0) g/dl Hct 39.0 (37.0-47.0) % MCV 85.7 (80.0-98.0) fL MCH 28.6 (27.0-33.0) pg MCHC 33.3 (31.0-35.0) g/dl RDW 14.1 (11.0-16.0) % Plt Count 228 (160-400) X10*3/uL MPV 10.3 (9.4-12.3) fL Immature Gran % (Auto) 0.5 H (0.0-0.4) % Neut % (Auto) 75.7 H (45-73) % Lymph % (Auto) 10.3 L (20-40) % [place] % (Auto) 12.5 H (2-11) % Eos % (Auto) 0.5 (0-4) % Baso % (Auto) 0.5 (0-2) % Lymph # (Auto) 0.7 L (1.2-4.9) X10*3/uL [place] # (Auto) 0.8 (0.1-1.2) X10*3/uL Eos # (Auto) 0.0 (0.0-0.4) X10*3/uL Baso # (Auto) 0.0 (0.0-0.2) X10*3/uL Abs Immat Gran (auto) 0.03 (0.00-0.03) X10*3/uL Absolute Neuts (auto) 4.8 (2.0-8.3) x10*3/uL Absolute Nucleated RBC 0.000 (0.0-0.012) X10*3/uL Nucleated RBC % (auto) 0.0 (0.0-0.2) /100WBC Sodium 137 (135-145) mmol/L Potassium 4.2 (3.3-5.1) mmol/L Chloride 106 (96-108) mmol/L Carbon Dioxide 23 (22-29) mmol/L Anion Gap 12 (12-20) BUN 12 (9-16) mg/dL Creatinine 0.81 (0.5-1.4) mg/dL Estim Creat Clear Calc 104.0 Estimated GFR > 60 Random Glucose 120 H (60-115) mg/dL Calcium 8.8 D (8.4-10.2) mg/dL Troponin I High Sens < 3.5 (<3.5-17.0) ng/L COVID-19 (DE) (Negative) COVID-19 Clin Com Influenza Type A (KEVEN) (Negative) Influenza Type B (KEVEN) (Negative) Influenza A & B Note 04/26/22 04/26/22 Range/Units 06:29 06:29 WBC (4.8-10.8) X10*3/uL RBC (4.20-5.50) X10*6/uL Hgb (12.0-16.0) g/dl Hct (37.0-47.0) % MCV (80.0-98.0) fL MCH (27.0-33.0) pg MCHC (31.0-35.0) g/dl RDW (11.0-16.0) % Plt Count (160-400) X10*3/uL MPV (9.4-12.3) fL Immature Gran % (Auto) (0.0-0.4) % Neut % (Auto) (45-73) % Lymph % (Auto) (20-40) % [place] % (Auto) (2-11) % Eos % (Auto) (0-4) % Baso % (Auto) (0-2) % Lymph # (Auto) (1.2-4.9) X10*3/uL [place] # (Auto) (0.1-1.2) X10*3/uL Eos # (Auto) (0.0-0.4) X10*3/uL Baso # (Auto) (0.0-0.2) X10*3/uL Abs Immat Gran (auto) (0.00-0.03) X10*3/uL Absolute Neuts (auto) (2.0-8.3) x10*3/uL Absolute Nucleated RBC (0.0-0.012) X10*3/uL Nucleated RBC % (auto) (0.0-0.2) /100WBC Sodium (135-145) mmol/L Potassium (3.3-5.1) mmol/L Chloride (96-108) mmol/L Carbon Dioxide (22-29) mmol/L Anion Gap (12-20) BUN (9-16) mg/dL Creatinine (0.5-1.4) mg/dL Estim Creat Clear Calc Estimated GFR Random Glucose (60-115) mg/dL Calcium (8.4-10.2) mg/dL Troponin I High Sens (<3.5-17.0) ng/L COVID-19 (DE) Positive A (Negative) COVID-19 Clin Com See Note Influenza Type A (KEVEN) Negative (Negative) Influenza Type B (KEVEN) Negative (Negative) Influenza A & B Note See Note ECG Data ECG #1: Attestation: I personally reviewed and interpreted this ECG as follows: Prior ECG tracings: available for review Interpretation: Sinus tachycardia, HR-105, no STEMI, OK/QRS/QTC is within normal limits. Discharge Plan Discharge Clinical Impression: Atypical chest pain, Pleurisy, Viral syndrome, Lab test positive for detection of COVID-19 virus Patient Disposition: Home, Self-Care Instructions: Pleurisy (ED), Viral Syndrome (ED), COVID-19 (Coronavirus Disease 2019) (ED) Additional Instructions: 1. Resume all home medications as prescribed. 2. You have been diagnosed with COVID-19 which has exposed your significant other as well as your children. You must isolate for 5 days as per CDC guidelines and then follow all Employee your/[place]/Federal guidelines for return to work. 3. Tylenol 1000 mg, orally, every 6 hours as needed for pain control. Do not exceed 4000 mg within 24 hours. 4. Increase your fluid hydration over the next 24-48 hours as well as increasing the frequency and use of your asthma inhaler. Also, recommend cool mist humidifier at the bedside for further symptom relief. 5. Ibuprofen 400 mg, orally with milk or food, every 6 hours as needed for pain control. 6. A prescription for cough medication has been sent to your pharmacy. 7. Follow-up with your primary care provider in the next 1-2 days via telemedi cine. Return to the ER for worsening symptoms. Prescriptions: New benzonatate 200 mg capsule 200 mg PO TID PRN (Reason: cough) Qty: 14 0RF No Action albuterol sulfate 90 mcg/actuation HFA aerosol inhaler 2 puff inhalation Q6H PRN (Reason: shortness of breath or wheezing) Qty: 8.5 0RF Referrals: Calvin Chavez MD [Primary Care Provider] - Stand Alone Forms: Work/School Release
[2022-04-26] MEDS: Ketorolac Tromethamine 30 MG/ML VIAL 15 MG IVPUSH (07:08)
== END 2022-04-26 07:57 | disposition home or self-care (01) ==
PROVIDERS: Emergency Medicine Emergency Medical Services; Emergency Provider Student in an Organized Health Care Education/Training Program; PCP Family Medicine
DX: U07.1 COVID-19 (principal); R09.1 Pleurisy; R07.89 Other chest pain; R00.0 Tachycardia, unspecified; J45.909 Unspecified asthma, uncomplicated; I10 Essential (primary) hypertension
CPT/HCPCS: 36415; 71045; 80048; 84484; 85025; 87502; 87635; 93005; 96372; 96374; 99284; J1885

== ENCOUNTER 2022-05-02 12:14 | Emergency (ER) | payer OTHER, SELFPAY ==
[2022-05-02 12:15] VITALS: BP 150/102; PULSE 90; RESP 18; TEMP 37; O2SAT 99; BMI 32.5
[2022-05-02 12:33] LABS: COVID-19 Test Positive (Negative); IDNOW Serial# 16C4AD1C
--- NOTE | 2022-05-02 13:10 | ED.GENADULT ---
HPI - General Adult General Chief complaint: General Medical Stated complaint: vomiting, neck pain Time Seen by Provider: 05/02/22 12:53 Source: patient Mode of arrival: ambulatory Limitations: no limitations History of Present Illness HPI narrative: Patient presents emergency department for evaluation of vomiting. Patient was seen in the emergency department 6 days ago as she was having headache, body aches, was diagnosed with COVID-19. She was advised that she may return to work today. She states that since yesterday she has been having nausea and vomiting, poor p.o. tolerance. Today she attempted to return to work but left due to vomiting. She had a telehealth visit with her primary care provider 2 days ago and was given a prescription for Zofran. She has tried taking the Zofran but this is not helping. Reports she is unable to keep down any fluids or solids. Denies fevers, chills, headache, chest pain, palpitations, shortness of breath, difficulty breathing, abdominal pain, constipation, diarrhea, dysuria, urinary frequency. Related Data Previous Rx's Medication Instructions Recorded albuterol sulfate 90 mcg/actuation 2 puff inhalation Q6H PRN 12/07/21 aerosol inhaler shortness of breath or wheezing #8.5 grams benzonatate 200 mg capsule 200 mg PO TID PRN cough #14 caps 04/26/22 metoclopramide HCl 10 mg tablet 10 mg PO Q6H PRN nausea and 05/02/22 (Reglan) vomiting #7 tabs Allergies Allergy/AdvReac Type Severity Reaction Status Date / Time amitriptyline [AMITRIPTYLINE] Allergy Unknown Hallucinati Verified 05/02/22 12:18 ons Review of Systems Review of Systems: Constitutional : No Weight loss, No Fever, No Chills ENT/Mouth :? No sore throat, No Rhinorrhea Eyes: No Swelling, No Redness Cardiovascular : No Chest Pain, No SOB, No Edema Respiratory : No Cough, No Sputum, No Wheezing Gastrointestinal : Positive Nausea, Positive Vomiting, no Diarrhea, no abdominal pain, No Hematochezia, No Melena Genitourinary : No Dysuria, No Urinary Frequency, No Hematuria, No Urgency? Musculoskeletal : No joint pain, No Myalgias, No Joint Swelling Skin : No Skin Lesions, No rash Neuro : No Weakness, No Numbness, No Dizziness, No Headache Psych : No Anxiety/Panic, No Depression Heme/Lymph: No Bruising, No Lymphadenopathy Endocrine : No Polyuria, No Polydipsia Yes all other systems are reviewed and are negative [facility] Past Medical History Attestation statement: The following information was validated with the patient. Source: old records reviewed Medical History Asthma HTN (hypertension) Migraine Surgical History Tubal ligation status Social History Social History Alcohol intake: current Alcohol intake frequency: holidays/special occasions only Patient Tobacco Use Status: Never used Tobacco Substance Use Type: Marijuana Advance Directives: No Advance Directives Information Provided: No Physical Exam ED Vital Signs: Vital Signs - 24 hr 05/02/22 12:15 05/02/22 14:46 Temperature 98.6 F 98.0 F Pulse Rate 90 84 Respiratory Rate 18 18 Blood Pressure 150/102 H 138/88 Pulse Oximetry 99 99 Oxygen Delivery Method Room Air Room Air BMI result Body Mass Index 32.5 Vital signs have been reviewed as normal and appeared to be correct. Hypertension? Heart rate normal.? Respiration rate normal. Temperature normal.? Oxygen saturation normal. Appearance: Alert.?Oriented to person, place and time. No acute distress.?Normal affect. Eyes: Pupils equal, round and reactive to light.? ENT: Pharynx normal.?? Neck: Normal inspection.? Neck supple.?? CVS: Heart sounds normal. Normal heart rate and rhythm.? Pulses normal.?? Respiratory: No respiratory distress.? Lung sounds clear to auscultation bilaterally?? Abdomen: Soft and non-tender. Normoactive bowel sounds. No pulsatile mass.?? Skin: Skin warm and dry.? Normal skin color.? Extremities: No lower extremity edema.? No calf ttp? Neuro: Moves all extremities spontaneously. Sensation intact bilaterally. No motor deficits. Ambulates with normal steady gait. Course Course Course Narrative: Patient is a 36-year-old female with a past medical history of recent COVID-19 infection, asthma, depression, anxiety, hypertension, glucose intolerance, GERD presenting to the emergency department for evaluation nausea and vomiting. Discussed with patient that nausea and vomiting may be symptoms of COVID-19 infection. However she is concerned given inability to tolerate any p.o. intake despite using Zofran. Will obtain basic labs including CBC, CMP, and lipase, urinalysis and urine test, will trial Reglan for nausea, and plan for p.o. trial afterwards. Reevaluation(s) Reevaluation #1: CBC is unremarkable. BMP is unremarkable. Elevated transaminases consistent with prior labs in November 2021, lipase is normal. Urinalysis without sign of infection, urine test is negative. Is a to tolerate p.o. intake after receiving Reglan. Discussed plan of care for patient to discharged home, vomiting likely secondary to COVID-19 infection, given new prescription for Reglan to use instead of Zofran, discussed bland diet and slow progression, return to work when symptoms have resolved 24 hours, follow-up with primary care provider within 2 days, discussed reasons to return back to the emergency department, all questions were answered and patient was discharged home in stable condition. Time: 14:42 Medical Decision Making Medical Records Medical records reviewed: Yes I reviewed the patient's medical records. Lab Data Lab results reviewed: Yes I reviewed the patient's lab results. Result diagrams: 05/02/22 13:21 05/02/22 13:21 Labs: Lab Results 05/02/22 05/02/22 05/02/22 Range/Units 12:19 13:19 13:19 WBC (4.8-10.8) X10*3/uL RBC (4.20-5.50) X10*6/uL Hgb (12.0-16.0) g/dl Hct (37.0-47.0) % MCV (80.0-98.0) fL MCH (27.0-33.0) pg MCHC (31.0-35.0) g/dl RDW (11.0-16.0) % Plt Count (160-400) X10*3/uL MPV (9.4-12.3) fL Immature Gran % (Auto) (0.0-0.4) % Neut % (Auto) (45-73) % Lymph % (Auto) (20-40) % [place] % (Auto) (2-11) % Eos % (Auto) (0-4) % Baso % (Auto) (0-2) % Lymph # (Auto) (1.2-4.9) X10*3/uL [place] # (Auto) (0.1-1.2) X10*3/uL Eos # (Auto) (0.0-0.4) X10*3/uL Baso # (Auto) (0.0-0.2) X10*3/uL Abs Immat Gran (auto) (0.00-0.03) X10*3/uL Absolute Neuts (auto) (2.0-8.3) x10*3/uL Absolute Nucleated RBC (0.0-0.012) X10*3/uL Nucleated RBC % (auto) (0.0-0.2) /100WBC Sodium (135-145) mmol/L Potassium (3.3-5.1) mmol/L Chloride (96-108) mmol/L Carbon Dioxide (22-29) mmol/L Anion Gap (12-20) BUN (9-16) mg/dL Creatinine (0.5-1.4) mg/dL Estim Creat Clear Calc Estimated GFR Random Glucose (60-115) mg/dL Calcium (8.4-10.2) mg/dL Total Bilirubin (0.0-1.0) mg/dL AST (5-31) U/L ALT (0-31) U/L Alkaline Phosphatase (39-117) U/L Total Protein (6.5-8.0) g/dL Albumin (3.5-5.0) g/dL Lipase (8-78) U/L Urine Color YELLOW Urine Appearance CLOUDY Urine pH 6.5 (5.0-8.0) Ur Specific [place] 1.020 (1.005-1.025) Urine Protein NEG (NEG-TRACE) MG/DL Urine Glucose (UA) NEG (NEG) MG/DL Urine Ketones NEG (NEG) MG/DL Urine Blood NEG (NEG) Urine Nitrite NEG (NEG) Ur Leukocyte Esterase NEG (NEG) Urine Test NEGATIVE (NEGATIVE) COVID-19 (DE) Positive A (Negative) COVID-19 Clin Com See Note 05/02/22 05/02/22 Range/Units 13:21 13:21 WBC 6.7 (4.8-10.8) X10*3/uL RBC 4.77 (4.20-5.50) X10*6/uL Hgb 13.3 (12.0-16.0) g/dl Hct 40.9 (37.0-47.0) % MCV 85.7 (80.0-98.0) fL MCH 27.9 (27.0-33.0) pg MCHC 32.5 (31.0-35.0) g/dl RDW 13.7 (11.0-16.0) % Plt Count 266 (160-400) X10*3/uL MPV 9.9 (9.4-12.3) fL Immature Gran % (Auto) 0.1 (0.0-0.4) % Neut % (Auto) 64.2 (45-73) % Lymph % (Auto) 29.5 (20-40) % [place] % (Auto) 6.0 (2-11) % Eos % (Auto) 0.1 (0-4) % Baso % (Auto) 0.1 (0-2) % Lymph # (Auto) 2.0 (1.2-4.9) X10*3/uL [place] # (Auto) 0.4 (0.1-1.2) X10*3/uL Eos # (Auto) 0.0 (0.0-0.4) X10*3/uL Baso # (Auto) 0.0 (0.0-0.2) X10*3/uL Abs Immat Gran (auto) 0.01 (0.00-0.03) X10*3/uL Absolute Neuts (auto) 4.3 (2.0-8.3) x10*3/uL Absolute Nucleated RBC 0.000 (0.0-0.012) X10*3/uL Nucleated RBC % (auto) 0.0 (0.0-0.2) /100WBC Sodium 139 (135-145) mmol/L Potassium 4.1 (3.3-5.1) mmol/L Chloride 100 (96-108) mmol/L Carbon Dioxide 30 H (22-29) mmol/L Anion Gap 13 (12-20) BUN 12 (9-16) mg/dL Creatinine 0.75 (0.5-1.4) mg/dL Estim Creat Clear Calc 112.2 Estimated GFR > 60 Random Glucose 144 H (60-115) mg/dL Calcium 9.2 (8.4-10.2) mg/dL Total Bilirubin 0.8 (0.0-1.0) mg/dL AST 127 H (5-31) U/L ALT 149 H (0-31) U/L Alkaline Phosphatase 95 D (39-117) U/L Total Protein 7.4 (6.5-8.0) g/dL Albumin 4.1 (3.5-5.0) g/dL Lipase 32 (8-78) U/L Urine Color Urine Appearance Urine pH (5.0-8.0) Ur Specific [place] (1.005-1.025) Urine Protein (NEG-TRACE) MG/DL Urine Glucose (UA) (NEG) MG/DL Urine Ketones (NEG) MG/DL Urine Blood (NEG) Urine Nitrite (NEG) Ur Leukocyte Esterase (NEG) Urine Test (NEGATIVE) COVID-19 (DE) (Negative) COVID-19 Clin Com Discharge Plan Discharge Clinical Impression: COVID-19 Patient Disposition: Home, Self-Care Additional Instructions: You should refrain from returning to work until we have been without symptoms for 24 hour period. Trial reglan instead of zofran for nausea, bland diet with progression as tolerated. Please contact your primary care provider to schedule follow-up visit within 2 days. Return to the emergency department any new or worsening symptoms or concerns. Prescriptions: New metoclopramide HCl [Reglan] 10 mg tablet 10 mg PO Q6H PRN (Reason: nausea and vomiting) Qty: 7 0RF No Action benzonatate 200 mg capsule 200 mg PO TID PRN (Reason: cough) Qty: 14 0RF albuterol sulfate 90 mcg/actuation HFA aerosol inhaler 2 puff inhalation Q6H PRN (Reason: shortness of breath or wheezing) Qty: 8.5 0RF Referrals: Calvin Chavez MD [Primary Care Provider] - 2 days Stand Alone Forms: Work/School Release Interventions: ED Discharge Assessment Last Done: 05/02/22 14:45 Discharge Date/Time: 05/02/22 14:48
[2022-05-02 13:27] LABS: MANUAL DIFF FLAG NO
[2022-05-02 13:28] LABS: Basophils Percent Auto 0.1 % (0-2); Eosinophils Percent Auto 0.1 % (0-4); Hematocrit 40.9 % (37.0-47.0); Hemoglobin 13.3 g/dl (12.0-16.0); Imm Gran Abs Auto 0.01 X10*3/uL (0.00-0.03); Imm Gran Pct Auto 0.1 % (0.0-0.4); Lymphocytes Percent Auto 29.5 % (20-40); Mean Corpuscular HGB Conc 32.5 g/dl (31.0-35.0); Mean Corpuscular Hemoglobin 27.9 pg (27.0-33.0); Mean Corpuscular Volume 85.7 fL (80.0-98.0); Mean Platelet Volume 9.9 fL (9.4-12.3); Monocytes Absolute Auto 0.4 X10*3/uL (0.1-1.2); Neutrophils Absolute Auto 4.3 x10*3/uL (2.0-8.3); Neutrophils Percent Auto 64.2 % (45-73); Platelet Count 266 X10*3/uL (160-400); Red Blood Count 4.77 X10*6/uL (4.20-5.50); Red Cell Distribution Width 13.7 % (11.0-16.0); White Blood Count 6.7 X10*3/uL (4.8-10.8)
[2022-05-02 13:28] LABS: Appearance Urine CLOUDY; Color Urine YELLOW; Glucose Urine UA NEG (NEG); Leukocyte Esterase Urine NEG (NEG); Nitrite Urine NEG (NEG); PH 6.5 (5.0-8.0); Urine Blood NEG (NEG); Urine Ketones NEG (NEG); Urine Protein NEG (NEG-TRACE)
[2022-05-02 13:31] LABS: UPreg QC Valid YES; Urine Pregnancy NEGATIVE (NEGATIVE)
[2022-05-02 13:50] LABS: Alanine Aminotransferase 149 U/L (0-31); Albumin Level 4.1 g/dL (3.5-5.0); Alkaline Phosphatase 95 U/L (39-117); Anion Gap 13 (12-20); Aspartate Amino Transferase 127 U/L (5-31); Bilirubin Total 0.8 mg/dL (0.0-1.0); Blood Urea Nitrogen 12 mg/dL (9-16); Calcium 9.2 mg/dL (8.4-10.2); Carbon Dioxide 30 mmol/L (22-29); Chloride 100 mmol/L (96-108); Creatinine Clr Calc Pharmacy 112.2; Estimated Glomerular Filt Rate > 60; Glucose Random 144 mg/dL (60-115); Lipase 32 U/L (8-78); Potassium 4.1 mmol/L (3.3-5.1); Sodium 139 mmol/L (135-145); Total Protein 7.4 g/dL (6.5-8.0)
[2022-05-02] MEDS: Metoclopramide HCl 10 MG TABLET PO (13:59)
--- NOTE | 2022-05-02 14:36 | PC.NURSE ---
pt tolerated po challenge. no nausea or vomiting at this time.
[2022-05-02 14:46] VITALS: BP 138/88; PULSE 84; RESP 18; TEMP 36.7; O2SAT 99
== END 2022-05-02 14:48 | disposition home or self-care (01) ==
PROVIDERS: Nurse Practitioner Family; Emergency Provider Emergency Medicine; PCP Family Medicine
DX: U07.1 COVID-19 (principal); I10 Essential (primary) hypertension; J45.909 Unspecified asthma, uncomplicated
CPT/HCPCS: 36415; 80053; 81003; 81025; 83690; 85025; 87635; 99283

== ENCOUNTER 2022-05-03 16:29 | Emergency (ER) | payer OTHER, SELFPAY ==
--- NOTE | ~2022-05-03 | US_ITS ---
EXAMINATION: US ABDOMEN LIMITED CLINICAL INFORMATION: Epigastric pain, vomiting and elevated LFTs. COMPARISON: CT scan chest September 2020. TECHNIQUE: Real-time imaging of the right upper quadrant abdominal viscera. FINDINGS: LIVER: Increased echogenicity compatible with hepatic steatosis as seen on prior CT No focal hepatic lesion. There is no intrahepatic biliary duct dilatation seen. GALLBLADDER: Normal. The gallbladder is physiologically distended without evidence of stones, sludge, polyps, wall thickening or pericholecystic fluid. COMMON BILE DUCT: Normal in caliber measuring 0.38 cm in diameter. US/US abdomen limited IMPRESSION: Hepatic steatosis, unchanged.
[2022-05-03 16:32] VITALS: BP 188/115; PULSE 89; RESP 18; TEMP 36; O2SAT 100; BMI 32.5
[2022-05-03 16:43] LABS: MANUAL DIFF FLAG NO
[2022-05-03 16:44] LABS: Basophils Percent Auto 0.2 % (0-2); Eosinophils Percent Auto 0.5 % (0-4); Hematocrit 41.5 % (37.0-47.0); Hemoglobin 13.9 g/dl (12.0-16.0); Imm Gran Abs Auto 0.02 X10*3/uL (0.00-0.03); Imm Gran Pct Auto 0.4 % (0.0-0.4); Lymphocytes Absolute Auto 2.6 X10*3/uL (1.2-4.9); Lymphocytes Percent Auto 45.8 % (20-40); Mean Corpuscular HGB Conc 33.5 g/dl (31.0-35.0); Mean Corpuscular Hemoglobin 28.3 pg (27.0-33.0); Mean Corpuscular Volume 84.3 fL (80.0-98.0); Mean Platelet Volume 9.7 fL (9.4-12.3); Monocytes Absolute Auto 0.5 X10*3/uL (0.1-1.2); Monocytes Percent Auto 8.8 % (2-11); Neutrophils Absolute Auto 2.5 x10*3/uL (2.0-8.3); Neutrophils Percent Auto 44.3 % (45-73); Platelet Count 302 X10*3/uL (160-400); Red Blood Count 4.92 X10*6/uL (4.20-5.50); Red Cell Distribution Width 13.5 % (11.0-16.0); White Blood Count 5.6 X10*3/uL (4.8-10.8)
[2022-05-03 16:58] LABS: Anion Gap 10 (12-20); Blood Urea Nitrogen 9 mg/dL (9-16); Calcium 9.4 mg/dL (8.4-10.2); Carbon Dioxide 30 mmol/L (22-29); Chloride 95 mmol/L (96-108); Creatinine Clr Calc Pharmacy 118.6; Estimated Glomerular Filt Rate > 60; Glucose Random 95 mg/dL (60-115); Potassium 3.8 mmol/L (3.3-5.1); Sodium 131 mmol/L (135-145)
--- NOTE | 2022-05-03 20:09 | ED.NAVMDI ---
HPI - Nausea/Vomiting/Diarrhea General Chief complaint: Nausea/Vomiting/Diarrhea Stated complaint: Nausea Vomiting Time Seen by Provider: 05/03/22 19:44 Source: patient and old records reviewed Mode of arrival: ambulatory Limitations: no limitations History of Present Illness MD elicited complaint: nausea, vomiting and abdominal pain Pertinent past history: other (IBS, does smoke THC but not since Wednesday - started when she was dx with COVID 6/5) Onset (ago): day(s) () Description of vomiting: food contents, watery and bilious Associated nausea: Yes Associated abdominal pain: Yes Location of pain: epigastric Pain consistency: constant Severity: moderate Quality: aching Exacerbating factors: eating Relieving factors: none Context: other (started with recent COVID dx) Associated symptoms: loss of appetite, malaise and nausea/vomiting Treatment prior to arrival: other (has failed both reglan and zofran) Related Data Previous Rx's Medication Instructions Recorded albuterol sulfate 90 mcg/actuation 2 puff inhalation Q6H PRN 12/07/21 aerosol inhaler shortness of breath or wheezing #8.5 grams benzonatate 200 mg capsule 200 mg PO TID PRN cough #14 caps 04/26/22 metoclopramide HCl 10 mg tablet 10 mg PO Q6H PRN nausea and 05/02/22 (Reglan) vomiting #7 tabs Allergies Allergy/AdvReac Type Severity Reaction Status Date / Time amitriptyline [AMITRIPTYLINE] Allergy Unknown Hallucinati Verified 05/02/22 12:18 ons Review of Systems Review of Systems: Constitutional : No Weight loss, No Fever, No Chills ENT/Mouth : No sore throat, No Rhinorrhea Eyes: No Swelling, No Redness Cardiovascular : No Chest Pain, No SOB, NoEdema Respiratory : No Cough, No Sputum, No Wheezing Gastrointestinal : Positive Nausea, Positive Vomiting, no Diarrhea, positive abdominal Pain, No Hematochezia, No Melena Genitourinary : No Dysuria, No Urinary Frequency, No Hematuria, No Urgency Musculoskeletal : No joint pain, No Myalgias, No Joint Swelling Skin : No Skin Lesions, No rash Neuro : No Weakness, No Numbness, No Dizziness, No Headache Psych : No Anxiety/Panic, No Depression Heme/Lymph: No Bruising, No Lymphadenopathy Endocrine : No Polyuria, No Polydipsia All other systems reviewed and are negative. Gastrointestinal: Gastrointestinal: Reports nausea PMFSH Past Medical History Medical History Asthma HTN (hypertension) Migraine Surgical History Tubal ligation status Social History Social History Alcohol intake: current Alcohol intake frequency: holidays/special occasions only Patient Tobacco Use Status: Never used Tobacco Substance Use Type: Marijuana Advance Directives: No Physical Exam Vital Signs: Vital Signs: Last Vital Signs Temp 96.8 F 05/03/22 16:32 Pulse 89 05/03/22 16:32 Resp 18 05/03/22 16:32 BP 188/115 H 05/03/22 16:32 Pulse Ox 100 05/03/22 16:32 O2 Del Method 05/03/22 16:32 BMI result Body Mass Index 32.5 Appearance: Alert. Oriented X3. No acute distress. Anxious Eyes: Pupils equal, round and reactive to light. ENT: Pharynx normal. Neck: Normal inspection. Neck supple. CVS: Normal heart rate and rhythm. Pulses normal. Respiratory: No respiratory distress. Breath sounds normal. Abdomen: Soft and moderate epigastric ttp but no rebound Skin: Skin warm and dry. Normal skin color. Normal skin turgor. Extremities: No lower extremity edema. No calf ttp Neuro: Oriented X 3. No motor deficit. No sensory deficit. Course Course Course Narrative: signed out to Dr. Philippe pending US and labs MDM - Nausea/Vomiting/Diarrhea MDM Narrative Medical decision making narrative: 36 yo female with hx of IBS, anxiety, GERD, asthma, COVID + as of 04/26 here with persistent nausea and vomiting with epigastric pain not responding to zofran and reglan. At this time will need labs, IVF, will try pepcid, compazine and benadryl, US to evaluate liver and gallbladder given increase in LFTs - Dispo per results and findings. Lab Data Result diagrams: 05/03/22 16:39 05/03/22 16:39 Labs: Lab Results 05/03/22 05/03/22 Range/Units 16:39 16:39 WBC 5.6 (4.8-10.8) X10*3/uL RBC 4.92 (4.20-5.50) X10*6/uL Hgb 13.9 (12.0-16.0) g/dl Hct 41.5 (37.0-47.0) % MCV 84.3 (80.0-98.0) fL MCH 28.3 (27.0-33.0) pg MCHC 33.5 (31.0-35.0) g/dl RDW 13.5 (11.0-16.0) % Plt Count 302 (160-400) X10*3/uL MPV 9.7 (9.4-12.3) fL Immature Gran % (Auto) 0.4 (0.0-0.4) % Neut % (Auto) 44.3 L (45-73) % Lymph % (Auto) 45.8 H (20-40) % [place] % (Auto) 8.8 (2-11) % Eos % (Auto) 0.5 (0-4) % Baso % (Auto) 0.2 (0-2) % Lymph # (Auto) 2.6 (1.2-4.9) X10*3/uL [place] # (Auto) 0.5 (0.1-1.2) X10*3/uL Eos # (Auto) 0.0 (0.0-0.4) X10*3/uL Baso # (Auto) 0.0 (0.0-0.2) X10*3/uL Abs Immat Gran (auto) 0.02 (0.00-0.03) X10*3/uL Absolute Neuts (auto) 2.5 (2.0-8.3) x10*3/uL Absolute Nucleated RBC 0.000 (0.0-0.012) X10*3/uL Nucleated RBC % (auto) 0.0 (0.0-0.2) /100WBC Sodium 131 L (135-145) mmol/L Potassium 3.8 (3.3-5.1) mmol/L Chloride 95 L (96-108) mmol/L Carbon Dioxide 30 H (22-29) mmol/L Anion Gap 10 L (12-20) BUN 9 (9-16) mg/dL Creatinine 0.71 (0.5-1.4) mg/dL Estim Creat Clear Calc 118.6 Estimated GFR > 60 Random Glucose 95 (60-115) mg/dL Calcium 9.4 (8.4-10.2) mg/dL Total Bilirubin 1.1 H (0.0-1.0) mg/dL Direct Bilirubin 0.4 (0.0-0.5) mg/dL AST 201 H (5-31) U/L ALT 224 H (0-31) U/L Alkaline Phosphatase 100 (39-117) U/L Total Protein 7.8 (6.5-8.0) g/dL Albumin 4.3 (3.5-5.0) g/dL Lipase 54 (8-78) U/L Beta HCG, Quant < 2 mIU/mL Discharge Plan Discharge Clinical Impression: Elevated liver enzymes Vomiting Qualifiers: Vomiting type: unspecified Nausea presence: with nausea Qualified Code(s): R11.2 - Nausea with vomiting, unspecified Patient Disposition: Still a Patient Prescriptions: No Action benzonatate 200 mg capsule 200 mg PO TID PRN (Reason: cough) Qty: 14 0RF albuterol sulfate 90 mcg/actuation HFA aerosol inhaler 2 puff inhalation Q6H PRN (Reason: shortness of breath or wheezing) Qty: 8.5 0RF metoclopramide HCl [Reglan] 10 mg tablet 10 mg PO Q6H PRN (Reason: nausea and vomiting) Qty: 7 0RF
[2022-05-03 20:26] LABS: Alanine Aminotransferase 224 U/L (0-31); Albumin Level 4.3 g/dL (3.5-5.0); Alkaline Phosphatase 100 U/L (39-117); Aspartate Amino Transferase 201 U/L (5-31); Bilirubin Direct 0.4 mg/dL (0.0-0.5); Bilirubin Total 1.1 mg/dL (0.0-1.0); Lipase 54 U/L (8-78); Total Protein 7.8 g/dL (6.5-8.0)
[2022-05-03] MEDS: Lactated Ringers 1,000 ML 999 ML IV (20:31)
[2022-05-03] MEDS: diphenhydrAMINE HCL 50 MG/ML VIAL 25 MG IVPUSH (20:31)
[2022-05-03] MEDS: Prochlorperazine Edisylate 10 MG/2 ML VIAL IVPUSH (20:31)
[2022-05-03 20:32] LABS: HCG Quantitative < 2 mIU/mL
[2022-05-03] MEDS: Famotidine/PF 20 MG/2 ML VIAL IVPUSH (20:53)
[2022-05-03 22:01] VITALS: BP 124/79; PULSE 80; RESP 18; TEMP 36.6; O2SAT 98
== END 2022-05-03 23:15 | disposition home or self-care (01) ==
PROVIDERS: Emergency Provider Emergency Medicine; PCP Family Medicine
DX: R11.2 Nausea with vomiting, unspecified (principal); R74.8 Abnormal levels of other serum enzymes; I10 Essential (primary) hypertension; J45.909 Unspecified asthma, uncomplicated
CPT/HCPCS: 36415; 76705; 80048; 80076; 83690; 84702; 85025; 96361; 96374; 96375; 99283; 99284; J1200

== ENCOUNTER 2023-04-10 00:24 | Emergency (ER) | payer OTHER, SELFPAY ==
[2023-04-10 00:26] VITALS: BP 150/92; PULSE 81; RESP 18; TEMP 36.4; O2SAT 100; BMI 26.6
[2023-04-10 00:44] LABS: Basophils Percent Auto 0.6 % (0-2); Eosinophils Absolute Auto 0.1 X10*3/uL (0.0-0.4); Eosinophils Percent Auto 1.5 % (0-4); Hemoglobin 11.1 g/dl (12.0-16.0); Imm Gran Abs Auto 0.01 X10*3/uL (0.00-0.03); Imm Gran Pct Auto 0.1 % (0.0-0.4); Lymphocytes Absolute Auto 2.5 X10*3/uL (1.2-4.9); Lymphocytes Percent Auto 36.9 % (20-40); MANUAL DIFF FLAG NO; Mean Corpuscular HGB Conc 32.6 g/dl (31.0-35.0); Mean Corpuscular Hemoglobin 27.3 pg (27.0-33.0); Mean Corpuscular Volume 83.7 fL (80.0-98.0); Mean Platelet Volume 9.9 fL (9.4-12.3); Monocytes Absolute Auto 0.5 X10*3/uL (0.1-1.2); Neutrophils Absolute Auto 3.6 x10*3/uL (2.0-8.3); Neutrophils Percent Auto 52.9 % (45-73); Platelet Count 302 X10*3/uL (160-400); Red Blood Count 4.06 X10*6/uL (4.20-5.50); Red Cell Distribution Width 15.2 % (11.0-16.0); White Blood Count 6.8 X10*3/uL (4.8-10.8)
[2023-04-10 01:09] LABS: Alanine Aminotransferase 22 U/L (0-31); Albumin Level 3.9 g/dL (3.5-5.0); Alkaline Phosphatase 78 U/L (39-117); Anion Gap 10 (12-20); Aspartate Amino Transferase 26 U/L (5-31); Bilirubin Direct 0.2 mg/dL (0.0-0.5); Bilirubin Total 0.8 mg/dL (0.0-1.0); Blood Urea Nitrogen 14 mg/dL (9-16); Carbon Dioxide 25 mmol/L (22-29); Chloride 109 mmol/L (96-108); Creatinine Clr Calc Pharmacy 100.5; Estimated Glomerular Filt Rate > 60; Glucose Random 105 mg/dL (60-115); Lipase 61 U/L (8-78); Potassium 4.1 mmol/L (3.3-5.1); Sodium 140 mmol/L (135-145); Total Protein 6.5 g/dL (6.5-8.0)
[2023-04-10 01:20] LABS: Influenza A PCR NEGATIVE (Negative); Influenza B PCR NEGATIVE (Negative); Resp Syncy Virus RNA Qual PCR NEGATIVE (Negative); SARS COV2 PCR INHOUSE NEGATIVE (Negative)
[2023-04-10 03:16] LABS: Appearance Urine Cloudy; Color Urine Yellow; Glucose Urine UA Negative (Negative); Leukocyte Esterase Urine Small (1+) (Negative); Nitrite Urine Negative (Negative); UMIC TRIGGER UACC YES; Urine Blood Negative (Negative); Urine Ketones Negative (Negative); Urine Protein Negative (Neg-Trace)
[2023-04-10 03:18] LABS: Bacteria Urine None Seen (None Seen); Hyaline Casts Urine 0-2 /LPF (0-2); RBC Urine 0-2 /HPF (0-2); UACC Culture Trigger YES
--- NOTE | 2023-04-10 05:06 | PC.NURSE ---
Pt LWBS at this time, pt encouraged to stay and educated on the importance of seeing the doctor. Pt declined at this time. Encouraged pt to follow up with PCP and return to the ed with any worsening symptoms.
== END 2023-04-10 05:08 | disposition left against medical advice (07) ==
PROVIDERS: Emergency Provider Emergency Medicine; PCP Family Medicine
DX: R10.9 Unspecified abdominal pain (principal); R11.2 Nausea with vomiting, unspecified; Z20.822 Contact with and (suspected) exposure to COVID-19; Z20.828 Contact with and (suspected) exposure to other viral communicable diseases
CPT/HCPCS: 0241U; 36415; 80048; 80076; 81001; 83690; 85025; 87086; 99283

== ENCOUNTER 2023-05-08 07:55 | Emergency (ER) | payer OTHER, SELFPAY ==
--- NOTE | 2023-05-08 | ECG_ITS ---
Test Reason : SOB Blood Pressure : / mmHG Vent. Rate : 075 BPM Atrial Rate : 075 BPM P-R Int : 132 ms QRS Dur : 108 ms QT Int : 406 ms P-R-T Axes : 053 023 -27 degrees QTc Int : 453 ms Artifact in tracing Normal sinus rhythm Nonspecific ST abnormality Abnormal ECG When compared with ECG of 26-APR-2022 06:09, No significant changes seen Referred By: Klever Sibley Electronically Signed By:REJI JACKSON
--- NOTE | ~2023-05-08 | XR_ITS ---
EXAMINATION: XR CHEST CLINICAL INFORMATION: Cough COMPARISON: None available. TECHNIQUE: 2 views of the chest were obtained. FINDINGS: No significant abnormality is noted involving the heart, lungs, mediastinum, bony thorax or soft tissues. XR/XR chest 2V IMPRESSION: Unremarkable chest examination.
[2023-05-08 07:57] VITALS: BP 142/104; PULSE 72; RESP 18; TEMP 36.2; O2SAT 100; BMI 27.8
[2023-05-08 08:17] VITALS: BP 134/92; PULSE 102; RESP 18; TEMP 36.5; O2SAT 100
--- NOTE | 2023-05-08 08:21 | ED_ITS ---
HPI - SOB/Dyspnea General Chief Complaint: Dyspnea Stated Complaint: hurts to breath, asthma, chest tightness Time Seen by Provider: 05/08/23 08:06 Source: patient Mode of arrival: ambulatory Limitations: no limitations History of Present Illness HPI Narrative: 37 year old female with history significant for asthma and bronchitis presents to the ED today with shortness of breath, chest tightness, and chest pain with inspiration x2 days. She has been using her nebulizer at home without symptom relief. Has never been admitted for her asthma in the past. Denies fever, chills, headache, palpitations, cough, N/V. Endorses marijuana use regularly. Denies tobacco use. Related Data Previous Rx's Medication Instructions Recorded albuterol sulfate 90 mcg/actuation 2 puff inhalation Q6H PRN 12/07/21 aerosol inhaler shortness of breath or wheezing #8.5 grams benzonatate 200 mg capsule 200 mg PO TID PRN cough #14 caps 04/26/22 metoclopramide HCl 10 mg tablet 10 mg PO Q6H PRN nausea and 05/02/22 (Reglan) vomiting #7 tabs prochlorperazine maleate 10 mg 10 mg PO Q6H PRN nausea and 05/03/22 tablet (Compazine) vomiting #14 tabs prednisone 20 mg tablet 60 mg PO DAILY 4 days #12 tabs 05/08/23 Allergies Allergy/AdvReac Type Severity Reaction Status Date / Time amitriptyline [AMITRIPTYLINE] Allergy Unknown Hallucinati Verified 05/08/23 08:00 ons Review of Systems Review of Systems: Yes all other systems are reviewed and are negative Constitutional: Constitutional: Denies chills and Denies fever(s) Cardiovascular: Cardiovascular: Denies chest pain at rest, Denies chest pain with activity, Denies lightheadedness and Reports dyspnea Respiratory: Respiratory: Denies cough, Reports pain on inspiration and Reports dyspnea PMFSH Past Medical History Attestation statement: The following information was validated with the patient. Source: old records reviewed and nursing notes reviewed Medical History Asthma HTN (hypertension) Migraine Surgical History Tubal ligation status Social History Social History Alcohol intake: current Alcohol intake frequency: holidays/special occasions only Patient Tobacco Use Status: Never used Tobacco Smoked in Last 30 Days: No Use of substances other than those prescribed or required for medical reasons: Yes Substance Use Type: Marijuana Substance Use Frequency: Occasionally Advance Directives: No Advance Directives Information Provided: No Physical Exam Vital Signs: Vital Signs: Last Vital Signs Temp 97.7 F 05/08/23 08:17 Pulse 98 05/08/23 10:00 Resp 18 05/08/23 10:00 BP 140/66 H 05/08/23 10:00 Pulse Ox 100 05/08/23 10:00 O2 Del Method Room Air 05/08/23 10:00 BMI result Body Mass Index 27.8 Const: General: cooperative, healthy appearing, comfortable, no acute distress, alert and awake Nutritional Appearance: average body habitus Orientation/consciousness: patient oriented x3 Limitations: no limitations Chest: Chest palpation & inspection: normal inspection of the chest Resp: Other: Minimal wheezes bilaterally Effort & Inspection: normal respiratory effort, able to speak in complete sentences, no cough, no respiratory distress, no retractions, not tachypneic, no tripod positioning and no use of accessory muscles Auscultation: wheezes throughout Cardio: Jugular venous distension: no JVD Rate: regular rate Rhythm: regular rhythm Heart sounds: S1 normal heart sound present, S2 normal heart sound present, no gallops, no murmurs and no rubs Peripheral pulses: posterior tibial pulses present and dorsalis pedis present Neuro: General: patient oriented x3 Extrem: General: Yes normal to inspection, No no clubbing, cyanosis or edema a nd Yes no pedal edema Course Reevaluation(s) Reevaluation #1: O2 sat is 100%. Bedisde ECHO performed, no pericardial effusion, good wall motion. Will perform EKG d/t patients persistent chest tightness. Time: 10:00 Medications Administered Discontinued Medications Generic Name Dose Route Start Last Admin Trade Name Freq PRN Reason Stop Dose Admin Albuterol/Ipratropium 3 ml 05/08/23 08:20 05/08/23 09:19 Albuterol/Iprat 2.5/0.5mg 3 Ml Ampul.Neb INHALE 05/08/23 08:21 3 ml ONCE ONE Administration Medical Decision Making Medical Decision Making [facility] Narrative: 37 year old female with history of asthma presents today with shortness of breath, pain with inspiration x2 days. Using nebulizer at home without relief. Physical exam signfiicant for minimal wheezes bilaterally. No JVD or peripheral edema. Normal rate and rhythm. Plan: CXR, nebs, and reexam Differential Diagnosis Pnuemonia, pnuemothorax, asthma exacerbation, pulmonary embolism PE unlikely as PERC score is 0 Pneumonia unlikely as patient is afebrile, no productive cough Lab Data 05/08/23 10:09 05/08/23 10:09 Labs: Lab Results 05/08/23 05/08/23 05/08/23 Range/Units 10:09 10:09 10:09 WBC 6.3 (4.8-10.8) X10*3/uL RBC 4.40 (4.20-5.50) X10*6/uL Hgb 12.0 (12.0-16.0) g/dl Hct 37.1 (37.0-47.0) % MCV 84.3 (80.0-98.0) fL MCH 27.3 (27.0-33.0) pg MCHC 32.3 (31.0-35.0) g/dl RDW 15.7 (11.0-16.0) % Plt Count 298 (160-400) X10*3/uL MPV 10.0 (9.4-12.3) fL Immature Gran % (Auto) 0.2 (0.0-0.4) % Neut % (Auto) 63.7 (45-73) % Lymph % (Auto) 29.2 (20-40) % [place] % (Auto) 6.0 (2-11) % Eos % (Auto) 0.6 (0-4) % Baso % (Auto) 0.3 (0-2) % Lymph # (Auto) 1.8 (1.2-4.9) X10*3/uL [place] # (Auto) 0.4 (0.1-1.2) X10*3/uL Eos # (Auto) 0.0 (0.0-0.4) X10*3/uL Baso # (Auto) 0.0 (0.0-0.2) X10*3/uL Abs Immat Gran (auto) 0.01 (0.00-0.03) X10*3/uL Absolute Neuts (auto) 4.0 (2.0-8.3) x10*3/uL Absolute Nucleated RBC 0.000 (0.0-0.012) X10*3/uL Nucleated RBC % (auto) 0.0 (0.0-0.2) /100WBC D-Dimer High Sensitivty 194 NG/ML Sodium 140 (135-145) mmol/L Potassium 3.6 (3.3-5.1) mmol/L Chloride 108 (96-108) mmol/L Carbon Dioxide 22 (22-29) mmol/L Anion Gap 14 (12-20) BUN 10 (9-16) mg/dL Creatinine 0.73 (0.5-1.4) mg/dL Estim Creat Clear Calc 105.6 Estimated GFR > 60 Random Glucose 128 H (60-115) mg/dL Calcium 9.6 D (8.4-10.2) mg/dL Total Bilirubin 0.6 (0.0-1.0) mg/dL AST 23 (5-31) U/L ALT 18 (0-31) U/L Alkaline Phosphatase 79 (39-117) U/L Troponin I High Sens (<3.5-17.0) ng/L Total Protein 7.5 (6.5-8.0) g/dL Albumin 4.2 (3.5-5.0) g/dL 05/08/23 Range/Units 10:09 WBC (4.8-10.8) X10*3/uL RBC (4.20-5.50) X10*6/uL Hgb (12.0-16.0) g/dl Hct (37.0-47.0) % MCV (80.0-98.0) fL MCH (27.0-33.0) pg MCHC (31.0-35.0) g/dl RDW (11.0-16.0) % Plt Count (160-400) X10*3/uL MPV (9.4-12.3) fL Immature Gran % (Auto) (0.0-0.4) % Neut % (Auto) (45-73) % Lymph % (Auto) (20-40) % [place] % (Auto) (2-11) % Eos % (Auto) (0-4) % Baso % (Auto) (0-2) % Lymph # (Auto) (1.2-4.9) X10*3/uL [place] # (Auto) (0.1-1.2) X10*3/uL Eos # (Auto) (0.0-0.4) X10*3/uL Baso # (Auto) (0.0-0.2) X10*3/uL Abs Immat Gran (auto) (0.00-0.03) X10*3/uL Absolute Neuts (auto) (2.0-8.3) x10*3/uL Absolute Nucleated RBC (0.0-0.012) X10*3/uL Nucleated RBC % (auto) (0.0-0.2) /100WBC D-Dimer High Sensitivty NG/ML Sodium (135-145) mmol/L Potassium (3.3-5.1) mmol/L Chloride (96-108) mmol/L Carbon Dioxide (22-29) mmol/L Anion Gap (12-20) BUN (9-16) mg/dL Creatinine (0.5-1.4) mg/dL Estim Creat Clear Calc Estimated GFR Random Glucose (60-115) mg/dL Calcium (8.4-10.2) mg/dL Total Bilirubin (0.0-1.0) mg/dL AST (5-31) U/L ALT (0-31) U/L Alkaline Phosphatase (39-117) U/L Troponin I High Sens < 2.7 (<3.5-17.0) ng/L Total Protein (6.5-8.0) g/dL Albumin (3.5-5.0) g/dL Independent Interpretation I performed an independent interpretation of an: EKG Interpretation: Sinus rhythm, rate of 75 bpm, artifact noted Discharge Plan Discharge Clinical Impression: Shortness of breath, Asthma with exacerbation, Chest pain on breathing Patient Disposition: Home, Self-Care Instructions: Asthma (ED), Noncardiac Chest Pain (ED), Shortness of Breath (ED) Additional Instructions: Follow up with your primary care physician. Take prednisone as prescribed. Return if symptoms worsen. Prescriptions: New prednisone 20 mg tablet 60 mg PO DAILY 4 Days Qty: 12 0RF No Action benzonatate 200 mg capsule 200 mg PO TID PRN (Reason: cough) Qty: 14 0RF prochlorperazine maleate [Compazine] 10 mg tablet 10 mg PO Q6H PRN (Reason: nausea and vomiting) Qty: 14 0RF albuterol sulfate 90 mcg/actuation HFA aerosol inhaler 2 puff inhalation Q6H PRN (Reason: shortness of breath or wheezing) Qty: 8.5 0RF metoclopramide HCl [Reglan] 10 mg tablet 10 mg PO Q6H PRN (Reason: nausea and vomiting) Qty: 7 0RF
--- NOTE | 2023-05-08 08:21 | PC.NURSE ---
Alert and oriented. States has had sob and coughing x 2 days. States 5/10 chest pain from coughing. States hx of asthma and covid about a year ago. Reports coughs up scant amount of flem. vss. 100% on Room air. denies headache. no sob noted at this time. Lungs sounds clear
--- NOTE | 2023-05-08 08:27 | PC.NURSE ---
Alert and oriented. States has had had belly pain since this morning. Pain is in the middle of his belly that comes and goes. denies pain with urination and had diarrhea last night. States pain is 4/10 and stays [address] the [address]. States this has happened one time before and it went away after he took a pill at home. Did not eat breakfast because of pain. Denies vomiting or nausea. no pain with palpation.
[2023-05-08] MEDS: Albuterol/Iprat 2.5/0.5MG 3 ML AMPUL.NEB INHALE (09:19)
[2023-05-08 09:20] VITALS: PULSE 76; RESP 18; O2SAT 100
--- NOTE | 2023-05-08 09:47 | PC.NURSE ---
Respiratory administered updraft per order- patient stating she feels like she is breathing better but still feels some tightness in chest. Provider at bedside performing echo.
--- NOTE | 2023-05-08 09:55 | ECG_ITS ---
Test Reason : SOB Blood Pressure : / mmHG Vent. Rate : 081 BPM Atrial Rate : 081 BPM P-R Int : 142 ms QRS Dur : 086 ms QT Int : 388 ms P-R-T Axes : 056 006 014 degrees QTc Int : 450 ms Normal sinus rhythm Normal ECG When compared with ECG of 08-MAY-2023 09:55, ST no longer elevated in Inferior leads Referred By: Klever Sibley Electronically Signed By:PADMINI MATOS MD
[2023-05-08 10:00] VITALS: BP 140/66; PULSE 98; RESP 18; O2SAT 100
[2023-05-08 10:14] LABS: MANUAL DIFF FLAG NO
[2023-05-08 10:16] LABS: Basophils Percent Auto 0.3 % (0-2); Eosinophils Percent Auto 0.6 % (0-4); Hematocrit 37.1 % (37.0-47.0); Imm Gran Abs Auto 0.01 X10*3/uL (0.00-0.03); Imm Gran Pct Auto 0.2 % (0.0-0.4); Lymphocytes Absolute Auto 1.8 X10*3/uL (1.2-4.9); Lymphocytes Percent Auto 29.2 % (20-40); Mean Corpuscular HGB Conc 32.3 g/dl (31.0-35.0); Mean Corpuscular Hemoglobin 27.3 pg (27.0-33.0); Mean Corpuscular Volume 84.3 fL (80.0-98.0); Monocytes Absolute Auto 0.4 X10*3/uL (0.1-1.2); Neutrophils Percent Auto 63.7 % (45-73); Platelet Count 298 X10*3/uL (160-400); Red Cell Distribution Width 15.7 % (11.0-16.0); White Blood Count 6.3 X10*3/uL (4.8-10.8)
[2023-05-08 10:23] LABS: D Dimer High Sensitivity 194 NG/ML
[2023-05-08 10:32] LABS: Alanine Aminotransferase 18 U/L (0-31); Albumin Level 4.2 g/dL (3.5-5.0); Alkaline Phosphatase 79 U/L (39-117); Anion Gap 14 (12-20); Aspartate Amino Transferase 23 U/L (5-31); Bilirubin Total 0.6 mg/dL (0.0-1.0); Blood Urea Nitrogen 10 mg/dL (9-16); Calcium 9.6 mg/dL (8.4-10.2); Carbon Dioxide 22 mmol/L (22-29); Chloride 108 mmol/L (96-108); Creatinine Clr Calc Pharmacy 105.6; Estimated Glomerular Filt Rate > 60; Glucose Random 128 mg/dL (60-115); Potassium 3.6 mmol/L (3.3-5.1); Sodium 140 mmol/L (135-145); Total Protein 7.5 g/dL (6.5-8.0)
[2023-05-08 10:40] LABS: Troponin-I High Sensitivity < 2.7 ng/L (<3.5-17.0)
--- NOTE | 2023-05-08 11:11 | PC.NURSE ---
Alert and oriented. Reviewed discharge plan with patient and partner who verbalized understanding.
== END 2023-05-08 11:12 | disposition home or self-care (01) ==
PROVIDERS: Emergency Provider Emergency Medicine; PCP Family Medicine
DX: J45.901 Unspecified asthma with (acute) exacerbation (principal); R07.89 Other chest pain; R06.02 Shortness of breath; F12.90 Cannabis use, unspecified, uncomplicated
CPT/HCPCS: 36415; 71046; 80053; 84484; 85025; 85379; 93005; 94640; 99284; 99285

== ENCOUNTER 2023-12-03 21:47 | Emergency (ER) | payer OTHER, SELFPAY ==
--- NOTE | ~2023-12-03 | XR_ITS ---
EXAMINATION: XR CHEST CLINICAL INFORMATION: Chest tightness. COMPARISON: Chest radiograph 05/08/2023. TECHNIQUE: Frontal view of the chest was obtained. FINDINGS: Normal appearance of the cardiomediastinal silhouette. No focal airspace opacity, pleural effusion or pneumothorax. No acute osseous findings. Visualized upper abdomen is within normal limits. XR/XR chest 1V IMPRESSION: No acute cardiopulmonary findings.
[2023-12-03 22:23] VITALS: BP 138/97; PULSE 88; RESP 16; TEMP 36.1; O2SAT 99; BMI 26.1
[2023-12-03 23:46] LABS: COVID-19 Test Negative (Negative); IDNOW Serial# 08D9AD1C; IDNOW Serial# 152EDE1D; Influenza A Negative (Negative); Influenza B2 Negative (Negative)
== END 2023-12-04 01:18 | disposition left against medical advice (07) ==
PROVIDERS: Emergency Provider Emergency Medicine; PCP Family Medicine
DX: R06.02 Shortness of breath (principal); R07.89 Other chest pain; Z11.52 Encounter for screening for COVID-19; Z20.828 Contact with and (suspected) exposure to other viral communicable diseases; Z79.899 Other long term (current) drug therapy
CPT/HCPCS: 71045; 87502; 87635; 99281; 99283

== ENCOUNTER 2024-03-21 07:08 | Emergency (ER) | payer OTHER, SELFPAY ==
[2024-03-21 07:10] VITALS: BP 134/92; PULSE 88; RESP 18; TEMP 36.4; O2SAT 100; BMI 26.1
--- NOTE | 2024-03-21 07:19 | ED_ITS ---
HPI - General Adult General Chief complaint: Skin/Abscess/Foreign Body Stated complaint: ? Abscess L Foot Betwen Toes Time Seen by Provider: 03/21/24 07:18 Source: patient Mode of arrival: ambulatory Limitations: no limitations History of Present Illness HPI narrative: Patient is a 38-yaer-old female with history of migraines, asthma, HTN presenting to the emergency department with complaint of painful bump on lateral aspect of left 3rd toe for the past few weeks. She states she has tried using cotton balls and Band-Aids the areas painful while wearing shoes. States she is on her feet for 12-16 hours for her shifts. She denies any discharge or drainage from the area. Denies any fevers. Denies any numbness or tingling to her toes. complaint: Toe pain Onset (ago): week(s) Associated symptoms: denies other symptoms Related Data Previous Rx's ?Medication ?Instructions ?Recorded albuterol sulfate 90 mcg/actuation 2 puff inhalation Q6H PRN 12/07/21 aerosol inhaler shortness of breath or wheezing #8.5 grams benzonatate 200 mg capsule 200 mg PO TID PRN cough #14 caps 04/26/22 metoclopramide HCl 10 mg tablet 10 mg PO Q6H PRN nausea and 05/02/22 (Reglan) vomiting #7 tabs prochlorperazine maleate 10 mg 10 mg PO Q6H PRN nausea and 05/03/22 tablet (Compazine) vomiting #14 tabs prednisone 20 mg tablet 60 mg (3 x 20 mg) PO DAILY 4 days 05/08/23 #12 tabs Allergies Allergy/AdvReac Type Severity Reaction Status Date / Time amitriptyline [AMITRIPTYLINE] Allergy Unknown Hallucinati Verified 03/21/24 07:13 ons Review of Systems 2 Review of Systems: As per HPI. Yes all other systems are reviewed and are negative Constitutional: Constitutional: Reports as per HPI [facility] Past Medical History Medical History Asthma HTN (hypertension) Migraine Surgical History Tubal ligation status Social History Social History Alcohol intake: current Alcohol intake frequency: holidays/special occasions only Patient Tobacco Use Status: Never used Tobacco Substance Use Type: Marijuana Advance Directives: Yes Advance Directives Information Provided: Yes Advance Directives on File: No Do you have a plan to hurt others: No Plan Physical Exam ED Vital Signs: Vital Signs - 24 hr 03/21/24 07:10 Temperature 97.6 F Pulse Rate 88 Respiratory Rate 18 Blood Pressure 134/92 H Pulse Oximetry 100 Oxygen Delivery Method Room Air BMI result Body Mass Index 26.1 Vital signs have been reviewed and appear to be correct. Blood pressure normal. Heart rate normal. Respiratory rate normal. Temperature normal. Oxygen saturation normal. Const General: cooperative, healthy appearing and no acute distress Orientation/consciousness: oriented to person, oriented to place, oriented to time and patient oriented x3 Limitations: no limitations HENMT Head: Yes normocephalic and Yes atraumatic Ears: external ears normal General nose exam: Normal external nose present Face and sinus: Yes face symmetric Mouth: oropharynx normal and moist mucous membranes Throat: Yes uvula midline Eyes Pupils: Equal, round and reactive pupils present Neck Neck: Yes normal visual inspection and Yes supple Resp Effort & Inspection: normal respiratory effort and able to speak in complete sentences Auscultation: clear to auscultation bilaterally Cardio Rate: regular rate Rhythm: regular rhythm Heart sounds: S1 normal heart sound present and S2 normal heart sound present Skin General skin exam: elasticity normal and turgor normal Neuro General: oriented to person, oriented to place, oriented to time, patient oriented x3, moves all extremities, no focal motor deficits and CN's II-XI intact bilaterally Cranial nerves: Yes Equal, round and reactive pupils present Cognition (Neuro): normal cognition Extrem General: Yes full ROM, Yes no pedal edema and Yes no calf tenderness Ankle/foot/toe images: 2 1. single flattened papule to lateral aspect of 3rd toe, no fluctuance, erythema or warmth Psych Mental Status: mental status grossly normal Affect: normal affect Thought process: Normal thought process present Medical Decision Making Medical Decision Making MDM Narrative: Patient is a 38-yaer-old female with history of migraines, asthma, HTN presenting to the emergency department with complaint of painful bump on lateral aspect of left 3rd toe for the past few weeks. On exam patient is awake, A+Ox3, VS WNL, afebrile, normal neurological exam without focal deficits, physical exam findings as above. Given reported symptoms and physical exam findings, initial differential includes wart, abscess, cellulitis. Physical exam findings most consistent with flat wart. Advised patient to begin applying topical salicylic acid. Discussed importance of wearing shoes in any public areas. Will refer to podiatry for ongoing symptoms. Return precautions discussed at bedside. Patient verbalized understanding of and agreement with plan. Differential Diagnosis Differential Diagnoses: The differential diagnosis associated with the presentation includes As per [facility] External Record Review External record reviewed: Inpatient record, Office record and Outpatient record Prescription Management I considered prescription management with: Other Discharge Plan Discharge Clinical Impression: Flat wart Patient Disposition: Home, Self-Care Instructions: Common Wart (ED), Cryotherapy Wart Removal (DC) Additional Instructions: You were evaluated in the emergency department today for toe pain. Your exam shows that your symptoms are caused by a wart. We recommend you begin using over the counter salicyclic acid of at least 17% strength. If your symptoms do not improve with this treatment, we recommend following up with podiatry. Return to the emergency department if you develop new redness, swelling, redness streaking up your foot or thick yellow drainage, fever. Prescriptions: No Action benzonatate 200 mg capsule 200 mg PO TID PRN (Reason: cough) Qty: 14 0RF prochlorperazine maleate [Compazine] 10 mg tablet 10 mg PO Q6H PRN (Reason: nausea and vomiting) Qty: 14 0RF albuterol sulfate 90 mcg/actuation HFA aerosol inhaler 2 puff inhalation Q6H PRN (Reason: shortness of breath or wheezing) Qty: 8.5 0RF metoclopramide HCl [Reglan] 10 mg tablet 10 mg PO Q6H PRN (Reason: nausea and vomiting) Qty: 7 0RF prednisone 20 mg tablet 60 mg PO DAILY 4 Days Qty: 12 0RF Referrals: [facility] [Provider Group] Print Language: Georgian
[2024-03-21 08:08] VITALS: BP 134/92; PULSE 88; RESP 18; TEMP 36.4; O2SAT 100
== END 2024-03-21 08:09 | disposition home or self-care (01) ==
PROVIDERS: Emergency Provider Emergency Medicine; PCP Family Medicine
DX: B07.8 Other viral warts (principal); I10 Essential (primary) hypertension
CPT/HCPCS: 99282

== ENCOUNTER 2024-06-07 06:51 | Emergency (ER) | payer OTHER, SELFPAY ==
--- NOTE | ~2024-06-07 | CT_ITS ---
EXAMINATION: CT ABDOMEN AND PELVIS WITH CONTRAST CLINICAL INFORMATION: Right lower quadrant pain. COMPARISON: Right upper quadrant ultrasound 05/03/2022 TECHNIQUE: Multidetector volumetric images were obtained from the superior aspect of the liver through the pubic symphysis following administration 85 mL of Omnipaque 350 intravenous contrast. Sagittal and coronal reformatted images were obtained on the technologist's workstation. Oral contrast: No This CT examination was performed using dose optimization techniques as appropriate, variously including the following: *Automated exposure control *Adjustment of mA and/or kV according to patient size (this includes techniques or standardized protocols for targeted exams where dose is matched to indication/reason for exam; i.e. extremities or head) *Use of iterative reconstruction technique DLP: 443 mGy-cm FINDINGS: LUNG BASES: The visualized lung bases are unremarkable. LIVER, GALLBLADDER, AND BILIARY TREE: The liver is enlarged and measures 21.6 cm in sagittal dimension. There is diffusely heterogeneous enhancement with scattered hypoattenuating foci that are too small to characterize. There are normal in size and. No biliary ductal dilatation is present. The gallbladder is contracted. PANCREAS: Unremarkable. SPLEEN: Unremarkable. ADRENAL GLANDS: Unremarkable. KIDNEYS AND URETERS: The kidneys are symmetric in size and enhancement. 3 mm nonobstructing calculus lower pole left kidney. No hydronephrosis or perinephric fluid collection. BLADDER: Unremarkable. GASTROINTESTINAL TRACT: No small bowel obstruction. The appendix is not visualized. ABDOMINAL WALL: No significant hernia is appreciated. LYMPH NODES: No bulky lymphadenopathy. VASCULAR: Normal caliber abdominal aorta. PELVIC VISCERA: Unremarkable. OSSEOUS STRUCTURES: No destructive bone lesions. CT/CT abdomen pelvis w IV con IMPRESSION: Hepatic enlargement with heterogeneous enhancement and several scattered hypoattenuating foci that are too small to characterize. Advise correlation with LFTs and possibly MRI abdomen for further characterization.
[2024-06-07 07:04] VITALS: BP 129/100; PULSE 89; RESP 16; TEMP 36.1; O2SAT 99; BMI 25.7
[2024-06-07 07:19] LABS: MANUAL DIFF FLAG NO
--- NOTE | 2024-06-07 07:21 | ED_ITS ---
HPI - General Adult General Chief complaint: Abdominal Pain Stated complaint: lower right abdominal pain Time Seen by Provider: 06/07/24 07:21 History of Present Illness ED Provider: Chavez ALEJO narrative: The patient is a 38-year-old woman who says that she had a hysterectomy several months ago at [facility]. She says that she has been having problems with very irregular periods and this led to her hysterectomy. She says that since the hysterectomy she has had unexpected weight loss which she attributes to a lot of chronic abdominal pains and nausea that she experiences when she eats. She also describes having intermittent problems with constipation since the surgery. She continues to have significant pain on the right side of her abdomen and both the right upper quadrant and the right lower quadrant since the surgery. She has seen a talent management specialist at [facility]. She has had an upper endoscopy. Today she ate across all and had significant right- sided abdominal pain and came to the emergency room. She still has a gallbladder. Related Data Previous Rx's ?Medication ?Instructions ?Recorded albuterol sulfate 90 mcg/actuation 2 puff inhalation Q6H PRN 12/07/21 aerosol inhaler shortness of breath or wheezing #8.5 grams benzonatate 200 mg capsule 200 mg PO TID PRN cough #14 caps 04/26/22 metoclopramide HCl 10 mg tablet 10 mg PO Q6H PRN nausea and 05/02/22 (Reglan) vomiting #7 tabs prochlorperazine maleate 10 mg 10 mg PO Q6H PRN nausea and 05/03/22 tablet (Compazine) vomiting #14 tabs prednisone 20 mg tablet 60 mg (3 x 20 mg) PO DAILY 4 days 05/08/23 #12 tabs Allergies Allergy/AdvReac Type Severity Reaction Status Date / Time amitriptyline [AMITRIPTYLINE] Allergy Unknown Hallucinati Verified 06/07/24 07:09 ons Review of Systems 2 Review of Systems: Yes all other systems are reviewed and are negative [facility] Past Medical History Medical History Asthma HTN (hypertension) Migraine Surgical History Tubal ligation status Social History Social History Alcohol intake: current Alcohol intake frequency: holidays/special occasions only Patient Tobacco Use Status: Never used Tobacco Substance Use Type: Marijuana Advance Directives: No Physical Exam ED Vital Signs: Vital Signs - 24 hr 06/07/24 07:04 06/07/24 07:35 06/07/24 08:36 Temperature 97.0 F 98.2 F 97.8 F Pulse Rate 89 84 65 Respiratory Rate 16 18 16 Blood Pressure 129/100 H 148/99 H 130/91 H Pulse Oximetry 99 100 100 Oxygen Delivery Method Room Air Room Air Room Air 06/07/24 10:46 06/07/24 10:52 Temperature 97.6 F 98.2 F Pulse Rate 70 70 Respiratory Rate 18 18 Blood Pressure 121/84 121/84 Pulse Oximetry 99 98 Oxygen Delivery Method Room Air Room Air BMI result Body Mass Index 25.7 Const Other: The patient is awake, alert, pleasant, cooperative. She does not appear in obvious distress HENMT Other: Face is symmetrical, mucous membranes moist Eyes Other: Pupils are round equal, conjunctivae are clear Neck Other: Moving her neck easily Resp Effort & Inspection: normal respiratory effort Auscultation: clear to auscultation bilaterally Cardio Rate: regular rate Rhythm: regular rhythm Heart sounds: S1 normal heart sound present and S2 normal heart sound present GI Other: There is right upper and right lower quadrant abdominal tenderness. General: Yes no CVA tenderness Back/Spine/Pelvis Back: no CVA tenderness Skin Other: Dry and unremarkable Neuro Other: The patient is awake, alert, pleasant, cooperative. Mental status is normal. She moves all extremities normally. She is grossly neurologically intact Extrem Other: No peripheral edema. Medications Administered Discontinued Medications Generic Name Dose Route Start Last Admin Trade Name Freq PRN Reason Stop Dose Admin Sodium Chloride 1,000 mls @ 999 mls/hr 06/07/24 07:30 06/07/24 10:45 Ns IV 06/07/24 08:30 Infused .Q1H1M CAMILLA Infusion Iohexol 100 ml 06/07/24 08:55 06/07/24 08:58 Iohexol 350 Mg/Ml 100 Ml Infus..Btl IV 06/07/24 08:56 85 ml ONCE ONE Administration Ketorolac Tromethamine 10 mg 06/07/24 08:41 06/07/24 09:02 Ketorolac Tromethamine 15 Mg/Ml Vial IVPUSH 06/07/24 08:42 10 mg ONCE ONE Administration Metoclopramide HCl 10 mg 06/07/24 08:41 06/07/24 09:02 Metoclopramide Hcl 10 Mg/2 Ml Vial IVPUSH 06/07/24 08:42 10 mg ONCE ONE Administration Medical Decision Making Medical Decision Making [facility] Narrative: The patient is a 38-year-old female who presents for evaluation of right-sided abdominal pain that has been bothering her for several weeks. Clinically the patient's history and physical exam was not highly suggestive of an acute surgical process although she was most tender in the right upper quadrant. The patient has normal LFTs. A CT of the abdomen and pelvis shows hepatomegaly without signs of biliary obstruction or signs of cholecystitis. The radiologist feels there is heterogeneous enhancement of the liver and several scattered hypoattenuating foci that are too small to characterize. Recommendation was correlation with LFTs and possibly an MRI of the abdomen for further characterization. The patient's LFTs are normal. I spoke to the radiologist. The radiologist did not feel that there would be any utility in getting a gallbladder ultrasound. This does not seem to be a biliary process. The patient will be discharged to follow up with her talent management specialist. Lab Data 06/07/24 07:13 06/07/24 07:13 Labs: Lab Results 06/07/24 06/07/24 Range/Units 07:13 07:49 WBC 8.8 (4.8-10.8) X10*3/uL RBC 4.55 (4.20-5.50) X10*6/uL Hgb 12.2 (12.0-16.0) g/dl Hct 37.4 (37.0-47.0) % MCV 82.2 (80.0-98.0) fL MCH 26.8 L (27.0-33.0) pg MCHC 32.6 (31.0-35.0) g/dl RDW 16.1 H (11.0-16.0) % Plt Count 362 (160-400) X10*3/uL MPV 8.8 L (9.4-12.3) fL Immature Gran % (Auto) 0.3 (0.0-0.4) % Neut % (Auto) 68.8 (45-73) % Lymph % (Auto) 23.2 (20-40) % Traill % (Auto) 6.5 (2-11) % Eos % (Auto) 0.9 (0-4) % Baso % (Auto) 0.3 (0-2) % Lymph # (Auto) 2.1 (1.2-4.9) X10*3/uL Traill # (Auto) 0.6 (0.1-1.2) X10*3/uL Eos # (Auto) 0.1 (0.0-0.4) X10*3/uL Baso # (Auto) 0.0 (0.0-0.2) X10*3/uL Abs Immat Gran (auto) 0.03 (0.00-0.03) X10*3/uL Absolute Neuts (auto) 6.1 (2.0-8.3) x10*3/uL Absolute Nucleated RBC 0.000 (0.0-0.012) X10*3/uL Nucleated RBC % (auto) 0.0 (0.0-0.2) /100WBC Sodium 141 (135-145) mmol/L Potassium 4.2 (3.3-5.1) mmol/L Chloride 104 (96-108) mmol/L Carbon Dioxide 28 (22-29) mmol/L Anion Gap 13 (12-20) BUN 8 L (9-16) mg/dL Creatinine 0.68 (0.5-1.4) mg/dL Estim Creat Clear Calc 108.3 Estimated GFR > 60 Random Glucose 153 H (60-115) mg/dL Calcium 10.0 (8.4-10.2) mg/dL Total Bilirubin 0.5 (0.0-1.0) mg/dL AST 19 (5-31) U/L ALT 14 (0-31) U/L Alkaline Phosphatase 77 (39-117) U/L C-Reactive Protein 0.76 H (< or = 0.50) mg/dL Total Protein 7.7 (6.5-8.0) g/dL Albumin 4.3 (3.5-5.0) g/dL Lipase 43 (8-78) U/L Urine Color Yellow Urine Appearance Clear Urine pH 7.0 (5.0-9.0) Ur Specific Caro 1.010 (1.005-1.025) Urine Protein Negative (Neg-Trace) mg/dL Urine Glucose (UA) Negative (Negative) mg/dL Urine Ketones Negative (Negative) mg/dL Urine Blood Negative (Negative) Urine Nitrite Negative (Negative) Ur Leukocyte Esterase Negative (Negative) Discharge Plan Discharge Clinical Impression: Abdominal pain, Hepatomegaly Patient Disposition: Home, Self-Care Additional Instructions: Your CT scan today shows that your liver is bigger than expected. Possible this may be related to the symptoms you have been experiencing. Your blood testing is all quite reassuring. Please plan on contacting your gastroenterology office soon to make a follow up appointment to discuss your CT scan findings and your symptoms. Also stay in touch with your primary care doctor. Return to the emergency room if worse Prescriptions: No Action benzonatate 200 mg capsule 200 mg PO TID PRN (Reason: cough) Qty: 14 0RF prochlorperazine maleate [Compazine] 10 mg tablet 10 mg PO Q6H PRN (Reason: nausea and vomiting) Qty: 14 0RF albuterol sulfate 90 mcg/actuation HFA aerosol inhaler 2 puff inhalation Q6H PRN (Reason: shortness of breath or wheezing) Qty: 8.5 0RF metoclopramide HCl [Reglan] 10 mg tablet 10 mg PO Q6H PRN (Reason: nausea and vomiting) Qty: 7 0RF prednisone 20 mg tablet 60 mg PO DAILY 4 Days Qty: 12 0RF Referrals: Calvin Chavez MD [Primary Care Provider] - (Abdominal pain, hepatomegaly) Interventions: ED Discharge Assessment Last Done: 06/07/24 10:52 Discharge Date/Time: 06/07/24 10:53 Print Language: Georgian
[2024-06-07 07:22] LABS: Basophils Percent Auto 0.3 % (0-2); Eosinophils Absolute Auto 0.1 X10*3/uL (0.0-0.4); Eosinophils Percent Auto 0.9 % (0-4); Hematocrit 37.4 % (37.0-47.0); Hemoglobin 12.2 g/dl (12.0-16.0); Imm Gran Abs Auto 0.03 X10*3/uL (0.00-0.03); Imm Gran Pct Auto 0.3 % (0.0-0.4); Lymphocytes Absolute Auto 2.1 X10*3/uL (1.2-4.9); Lymphocytes Percent Auto 23.2 % (20-40); Mean Corpuscular HGB Conc 32.6 g/dl (31.0-35.0); Mean Corpuscular Hemoglobin 26.8 pg (27.0-33.0); Mean Corpuscular Volume 82.2 fL (80.0-98.0); Mean Platelet Volume 8.8 fL (9.4-12.3); Monocytes Absolute Auto 0.6 X10*3/uL (0.1-1.2); Monocytes Percent Auto 6.5 % (2-11); Neutrophils Absolute Auto 6.1 x10*3/uL (2.0-8.3); Neutrophils Percent Auto 68.8 % (45-73); Platelet Count 362 X10*3/uL (160-400); Red Blood Count 4.55 X10*6/uL (4.20-5.50); Red Cell Distribution Width 16.1 % (11.0-16.0); White Blood Count 8.8 X10*3/uL (4.8-10.8)
--- NOTE | 2024-06-07 07:25 | PC.NURSE ---
Pt comes from home for mid-epigastric/RLQ abdominal pain since her hysterectomy in December. Pt states she feels as though she is always in the bathroom and noticed a decrease in her appetite d/t being in the bathroom after every meal, along with a large amount of weight loss. Pt states she feels very weak and just wants to lay in bed, she vomited last night and this morning, and has been noticing gooey stool in her diarrhea. Denies cp, sob, fevers, and sick contacts. A/ox4, respirations even and unlabored, lung sounds cta bilaterally, s1 and s2, abdomen soft, tender in right lower quadrant when palpated. Call grajeda within reach, awaiting further orders at this time.
[2024-06-07 07:35] VITALS: BP 148/99; PULSE 84; RESP 18; TEMP 36.8; O2SAT 100
[2024-06-07 07:35] LABS: Alanine Aminotransferase 14 U/L (0-31); Albumin Level 4.3 g/dL (3.5-5.0); Alkaline Phosphatase 77 U/L (39-117); Anion Gap 13 (12-20); Aspartate Amino Transferase 19 U/L (5-31); Bilirubin Total 0.5 mg/dL (0.0-1.0); Blood Urea Nitrogen 8 mg/dL (9-16); Carbon Dioxide 28 mmol/L (22-29); Chloride 104 mmol/L (96-108); Creatinine Clr Calc Pharmacy 108.3; Estimated Glomerular Filt Rate > 60; Glucose Random 153 mg/dL (60-115); Lipase 43 U/L (8-78); Potassium 4.2 mmol/L (3.3-5.1); Sodium 141 mmol/L (135-145); Total Protein 7.7 g/dL (6.5-8.0)
[2024-06-07] MEDS: 0.9 % Sodium Chloride 1,000 ML 999 ML IV (07:46)
[2024-06-07 07:58] LABS: Appearance Urine Clear; Color Urine Yellow; Glucose Urine UA Negative (Negative); Leukocyte Esterase Urine Negative (Negative); Nitrite Urine Negative (Negative); Urine Blood Negative (Negative); Urine Ketones Negative (Negative); Urine Protein Negative (Neg-Trace)
[2024-06-07 08:36] VITALS: BP 130/91; PULSE 65; RESP 16; TEMP 36.6; O2SAT 100
[2024-06-07] MEDS: iohexoL 350 MG/ML 100 ML INFUS..BTL IV (08:58)
[2024-06-07] MEDS: Metoclopramide HCl 10 MG/2 ML VIAL IVPUSH (09:02)
[2024-06-07] MEDS: Ketorolac Tromethamine 15 MG/ML VIAL 10 MG IVPUSH (09:02)
[2024-06-07 10:46] VITALS: BP 121/84; PULSE 70; RESP 18; TEMP 36.4; O2SAT 99
[2024-06-07 10:47] LABS: C Reactive Protein 0.76 mg/dL (< or = 0.50)
[2024-06-07 10:52] VITALS: BP 121/84; PULSE 70; RESP 18; TEMP 36.8; O2SAT 98
== END 2024-06-07 10:53 | disposition home or self-care (01) ==
PROVIDERS: Emergency Provider Emergency Medicine; PCP Family Medicine
DX: R10.31 Right lower quadrant pain (principal); R16.0 Hepatomegaly, not elsewhere classified; I10 Essential (primary) hypertension; J45.909 Unspecified asthma, uncomplicated; Z79.899 Other long term (current) drug therapy
CPT/HCPCS: 36415; 74177; 80053; 81003; 83690; 85025; 86140; 96361; 96374; 96375; 99284; 99285; J1885; J2765; Q9967

== ENCOUNTER 2024-06-16 01:40 | Emergency (ER) | payer OTHER, SELFPAY ==
--- NOTE | ~2024-06-16 | XR_ITS ---
EXAMINATION: XR CHEST CLINICAL INFORMATION: Cough, pain COMPARISON: 12/03/2023 TECHNIQUE: Frontal view of the chest was obtained. FINDINGS: The lungs are clear with no focal consolidation. No evidence of pneumothorax, pulmonary edema, or pleural effusions. The cardiomediastinal silhouette is unremarkable. No acute osseous findings. XR/XR chest 1V IMPRESSION: No acute cardiopulmonary findings.
[2024-06-16 01:41] VITALS: BP 158/103; PULSE 83; RESP 20; TEMP 36.4; O2SAT 100; BMI 25.7
[2024-06-16 02:33] LABS: Influenza A PCR NEGATIVE (Negative); Influenza B PCR NEGATIVE (Negative); Resp Syncy Virus RNA Qual PCR NEGATIVE (Negative); SARS COV2 PCR INHOUSE NEGATIVE (Negative)
--- NOTE | 2024-06-16 02:43 | ED.URI ---
HPI - URI/Sore Throat General Chief Complaint: Upper Respiratory Symptoms Stated Complaint: pain in ribs, left arm, and neck Time Seen by Provider: 06/16/24 02:43 Source: patient Mode of arrival: ambulatory Limitations: no limitations History of Present Illness ED Provider: nate LAEJO Narrative: Patient's history of asthma been coughing for last few days complaining of pain in the ribcage and left shoulder increases on movements cough is mostly dry no fever no chills has slight nausea patient is not using inhaler Related Data Previous Rx's ?Medication ?Instructions ?Recorded albuterol sulfate 90 mcg/actuation 2 puff inhalation Q6H PRN 12/07/21 aerosol inhaler shortness of breath or wheezing #8.5 grams benzonatate 200 mg capsule 200 mg PO TID PRN cough #14 caps 04/26/22 metoclopramide HCl 10 mg tablet 10 mg PO Q6H PRN nausea and 05/02/22 (Reglan) vomiting #7 tabs prochlorperazine maleate 10 mg 10 mg PO Q6H PRN nausea and 05/03/22 tablet (Compazine) vomiting #14 tabs prednisone 20 mg tablet 60 mg (3 x 20 mg) PO DAILY 4 days 05/08/23 #12 tabs benzonatate 200 mg capsule 200 mg PO TID PRN cough #30 caps 06/16/24 cefuroxime axetil 500 mg tablet 500 mg PO BID 7 days #14 tabs 06/16/24 oxycodone 5 mg tablet 5 mg PO Q6H PRN pain #20 tabs 06/16/24 Allergies Allergy/AdvReac Type Severity Reaction Status Date / Time amitriptyline [AMITRIPTYLINE] Allergy Unknown Hallucinati Verified 06/16/24 01:43 ons Review of Systems Review of Systems: Yes all other systems are reviewed and are negative PMFSH Past Medical History Medical History Asthma HTN (hypertension) Migraine Surgical History Tubal ligation status Social History Social History Alcohol intake: current Alcohol intake frequency: holidays/special occasions only Patient Tobacco Use Status: Never used Tobacco Smoked in Last 30 Days: No Use of substances other than those prescribed or required for medical reasons: Yes Substance Use Type: Marijuana Advance Directives: No Advance Directives Information Provided: No Do you have a plan to hurt others: No Plan Patient : No Physical Exam Vital Signs: Vital Signs: Last Vital Signs Temp 98 F 06/16/24 04:47 Pulse 72 06/16/24 04:47 Resp 16 06/16/24 04:47 BP 126/85 06/16/24 04:47 Pulse Ox 100 06/16/24 04:47 O2 Del Method Room Air 06/16/24 04:47 BMI result Body Mass Index 25.7 Appearance: Alert. Oriented X3. No acute distress. Eyes: No pallor or icterus ENT: Pharynx normal. Oral Mucosa moist Neck: Normal inspection. Neck supple. CVS: Normal heart rate and rhythm. Pulses normal. Respiratory: No respiratory distress. Equal air entry bilateral, no wheezing/rales/rhonchi left chest wall tenderness++ Abdomen: Soft and nontender. Bowel sounds are present, no mass palpable, no CVA tenderness Skin: Skin warm and dry. Normal skin color. Normal skin turgor. Extremities: No lower extremity edema. No calf tenderness Neuro: Oriented X 3. Medications Administered Discontinued Medications Generic Name Dose Route Start Last Admin Trade Name Freq PRN Reason Stop Dose Admin Cefuroxime Axetil 500 mg 06/16/24 02:50 06/16/24 02:57 Cefuroxime Axetil 500 Mg Tablet PO 06/16/24 02:51 500 mg ONCE ONE Administration Guaifenesin/Codeine Phosphate 10 ml 06/16/24 02:50 06/16/24 02:57 Guaifen/Codeine Sf 200/20/10ml 10 Ml Liquid PO 06/16/24 02:51 10 ml ONCE ONE Administration Medical Decision Making Medical Decision Making MDM Narrative: Patient with cough and left chest wall pain likely pleuritic chest x-ray negative for infiltrate discharge patient home on pain medication antibiotics Lab Data [facility] Lab Attestation statement: I reviewed the patient's lab results. Labs: Lab Results 06/16/24 Range/Units 01:52 Influenza Type A (PCR) NEGATIVE (Negative) Influenza Type B (PCR) NEGATIVE (Negative) RSV RNA Qual (PCR) NEGATIVE (Negative) SARS-CoV-2 RNA (RT-PCR) NEGATIVE (Negative) Independent Interpretation I performed an independent interpretation of an: EKG and Plain X-Ray Interpretation: No acute Normal sinus rhythm heart rate 72 beats per minute no acute ST-T changes no acute ischemia Radiology Impression Discussion of test interpretation with radiology: I have reviewed the radiologist's reading. Discharge Plan Discharge Clinical Impression: Bronchitis, Acute pleurisy without pleural effusion Patient Disposition: Home, Self-Care Instructions: Pleurisy (ED), Acute Bronchitis (ED) Additional Instructions: Use your inhaler/nebulizer every 4 hours as needed Antibiotic and pain medication as prescribed Cough drops as prescribed Prescriptions: New cefuroxime axetil 500 mg tablet 500 mg PO BID 7 Days Qty: 14 0RF oxycodone 5 mg tablet 5 mg PO Q6H PRN (Reason: pain) Qty: 20 0RF Rx Instructions: Partial Fill upon patient request. benzonatate 200 mg capsule 200 mg PO TID PRN (Reason: cough) Qty: 30 0RF No Action benzonatate 200 mg capsule 200 mg PO TID PRN (Reason: cough) Qty: 14 0RF prochlorperazine maleate [Compazine] 10 mg tablet 10 mg PO Q6H PRN (Reason: nausea and vomiting) Qty: 14 0RF albuterol sulfate 90 mcg/actuation HFA aerosol inhaler 2 puff inhalation Q6H PRN (Reason: shortness of breath or wheezing) Qty: 8.5 0RF metoclopramide HCl [Reglan] 10 mg tablet 10 mg PO Q6H PRN (Reason: nausea and vomiting) Qty: 7 0RF prednisone 20 mg tablet 60 mg PO DAILY 4 Days Qty: 12 0RF Stand Alone Forms: Work/School Release Interventions: ED Discharge Assessment Last Done: 06/16/24 04:47 Discharge Date/Time: 06/16/24 04:48 Print Language: Romanian
--- NOTE | 2024-06-16 02:49 | ECG_ITS ---
Test Reason : CHEST PX Blood Pressure : / mmHG Vent. Rate : 072 BPM Atrial Rate : 072 BPM P-R Int : 138 ms QRS Dur : 080 ms QT Int : 390 ms P-R-T Axes : 000 -08 -25 degrees QTc Int : 427 ms Normal sinus rhythm Low voltage QRS Lateral infarct , age undetermined Abnormal ECG When compared with ECG of 08-MAY-2023 10:13, Lateral infarct is now Present Nonspecific T wave abnormality now evident in Lateral leads Referred By: Rudy Xavier Electronically Signed By:REJI JACKSON
[2024-06-16] MEDS: guaiFEN/Codeine SF 200/20/10ML 10 ML LIQUID PO (02:57)
[2024-06-16] MEDS: cefuroxime axetiL 500 MG TABLET PO (02:57)
[2024-06-16 04:17] VITALS: BP 126/85; PULSE 72; RESP 16; TEMP 36.6; O2SAT 100
[2024-06-16 04:47] VITALS: BP 126/85; PULSE 72; RESP 16; TEMP 36.6; O2SAT 100
== END 2024-06-16 04:48 | disposition home or self-care (01) ==
PROVIDERS: Emergency Provider Internal Medicine; PCP Family Medicine
DX: J20.9 Acute bronchitis, unspecified (principal); J90 Pleural effusion, not elsewhere classified; I10 Essential (primary) hypertension; Z03.818 Encounter for observation for suspected exposure to other biological agents ruled out; R05.9 Cough, unspecified; Z79.899 Other long term (current) drug therapy
CPT/HCPCS: 0241U; 71045; 93005; 99283; 99285

== ENCOUNTER → 2024-06-16 02:49 | Outpatient (BNV) | payer OTHER, SELFPAY | PROVIDERS: Emergency Provider Internal Medicine; PCP Family Medicine; Visit Provider Internal Medicine | DX: R94.31 Abnormal electrocardiogram [ECG] [EKG] (principal) | CPT/HCPCS: 93010 ==

== ENCOUNTER 2024-06-21 12:06 | Emergency (ER) | payer OTHER, SELFPAY ==
--- NOTE | 2024-06-21 12:08 | ECG_ITS ---
Test Reason : cp Blood Pressure : / mmHG Vent. Rate : 088 BPM Atrial Rate : 088 BPM P-R Int : 142 ms QRS Dur : 086 ms QT Int : 362 ms P-R-T Axes : 062 014 013 degrees QTc Int : 438 ms Normal sinus rhythm Normal ECG When compared with ECG of 16-JUN-2024 02:51, Criteria for Lateral infarct are no longer Present Nonspecific T wave abnormality no longer evident in Lateral leads Referred By: Bhumi Seymour Electronically Signed By:Issa Manley
--- NOTE | 2024-06-21 12:18 | ED.CHESTPAIN ---
HPI - Chest Pain General Chief Complaint: General Medical Stated Complaint: chest pain around to back headache Time Seen by Provider: 06/21/24 12:37 History of Present Illness HPI narrative: Patient complains of left lateral low rib pain worse with movement deep breath and when she touches it She was seen here for the exact same complaint 3 days ago and given prescription for Motrin and oxycodone, diagnosis was pleurisy secondary to a respiratory infection She says the pain has not changed in past 3 days is is the same with no worsening and no improvement Now she is not coughing has no fever denies any wheezing or asthma, she has no shortness of breath, no abdominal pain no nausea vomiting or diarrhea she tolerates p.o., denies any leg pain or calf pain or swelling She has been taking occasional Motrin occasional Tylenol and oxycodone only when it is very painful and she takes either a half tab 2.5 mg or a whole tab 5 mg with minimal relief of pain Related Data Previous Rx's ?Medication ?Instructions ?Recorded albuterol sulfate 90 mcg/actuation 2 puff inhalation Q6H PRN 12/07/21 aerosol inhaler shortness of breath or wheezing #8.5 grams benzonatate 200 mg capsule 200 mg PO TID PRN cough #14 caps 04/26/22 metoclopramide HCl 10 mg tablet 10 mg PO Q6H PRN nausea and 05/02/22 (Reglan) vomiting #7 tabs prochlorperazine maleate 10 mg 10 mg PO Q6H PRN nausea and 05/03/22 tablet (Compazine) vomiting #14 tabs prednisone 20 mg tablet 60 mg (3 x 20 mg) PO DAILY 4 days 05/08/23 #12 tabs benzonatate 200 mg capsule 200 mg PO TID PRN cough #30 caps 06/16/24 cefuroxime axetil 500 mg tablet 500 mg PO BID 7 days #14 tabs 06/16/24 oxycodone 5 mg tablet 5 mg PO Q6H PRN pain #20 tabs 06/16/24 acetaminophen 500 mg tablet 1,000 mg (2 x 500 mg) PO QID PRN 06/21/24 pain #30 tabs naproxen 500 mg tablet (Naprosyn) 500 mg PO BID PRN pain #20 tabs 06/21/24 Allergies Allergy/AdvReac Type Severity Reaction Status Date / Time amitriptyline [AMITRIPTYLINE] Allergy Unknown Hallucinati Verified 06/21/24 12:21 ons [facility] Past Medical History Source: nursing notes reviewed Medical History Asthma HTN (hypertension) Migraine Surgical History Tubal ligation status Social History Social History Alcohol intake: current Alcohol intake frequency: holidays/special occasions only Patient Tobacco Use Status: Never used Tobacco Substance Use Type: Marijuana Advance Directives: No Advance Directives Information Provided: No Physical Exam Vital Signs: Vital Signs: Last Vital Signs Temp 98.2 F 06/21/24 12:19 Pulse 96 06/21/24 12:19 Resp 16 06/21/24 12:19 BP 132/82 06/21/24 12:19 Pulse Ox 97 06/21/24 12:19 O2 Del Method Room Air 06/21/24 12:19 BMI result Body Mass Index 25.6 General appearance is calm comfortable no acute distress, breathing easily speaking full sentences The pharynx is clear Neck is supple Chest is clear to auscultation bilateral with full symmetric equal breath sounds Chest wall exam shows tenderness in the lower left lateral/anterior ribs, pain is easily reproduced with movement and a very deep breath There is no rash anywhere on the chest or abdominal wall Abdomen is soft and nontender Extremities full range of motion x4, no calf swelling or tenderness no edema Skin no rash Neuro no focal deficits Course Course Course Narrative: This is a Rapid Medical Examination (RME) performed by Jan Seymour PA-C in triage. Full HPI, ROS, assessment and treatment plan per primary provider in the Main ED. 38 yo female here for eval of headache, nausea w/o vomiting, dizziness, and left lower rib pain x2 days. here on 06/16/24, dx w/ bronchitis. discharged w/ Ceftin, oxy, Tessalon Perles. + tender to palpation over anterolateral lower left ribs. no palpable deformity. Plan: labs +/- imaging Patient with easily reproducible left lower chest wall/lower rib pain, with pain worse with movement deep breath and palpation Chest x-ray from 3 days ago was normal and patient says nothing has changed in her condition since that x-ray was done it is exactly the same EKG was a normal sinus rhythm without evidence of acute ischemic change, rate was 88, QT was normal intervals were normal CBC showed hemoglobin 10.4, hematocrit, platelets normal No acute findings on chemistry Patient is it would advised to use analgesics if she needs to up the dose of oxycodone to 2 tablets she can, but no evidence of pneumonia, PERC score was negative Medical Decision Making Lab Data 06/21/24 12:34 06/21/24 12:34 Labs: Lab Results 06/21/24 Range/Units 12:34 WBC 8.9 (4.8-10.8) X10*3/uL RBC 3.87 L (4.20-5.50) X10*6/uL Hgb 10.4 L (12.0-16.0) g/dl Hct 32.0 L (37.0-47.0) % MCV 82.7 (80.0-98.0) fL MCH 26.9 L (27.0-33.0) pg MCHC 32.5 (31.0-35.0) g/dl RDW 16.2 H (11.0-16.0) % Plt Count 291 (160-400) X10*3/uL MPV 9.0 L (9.4-12.3) fL Immature Gran % (Auto) 0.2 (0.0-0.4) % Neut % (Auto) 77.0 H (45-73) % Lymph % (Auto) 17.3 L (20-40) % [place] % (Auto) 4.9 (2-11) % Eos % (Auto) 0.3 (0-4) % Baso % (Auto) 0.3 (0-2) % Lymph # (Auto) 1.6 (1.2-4.9) X10*3/uL [place] # (Auto) 0.4 (0.1-1.2) X10*3/uL Eos # (Auto) 0.0 (0.0-0.4) X10*3/uL Baso # (Auto) 0.0 (0.0-0.2) X10*3/uL Abs Immat Gran (auto) 0.02 (0.00-0.03) X10*3/uL Absolute Neuts (auto) 6.9 (2.0-8.3) x10*3/uL Absolute Nucleated RBC 0.000 (0.0-0.012) X10*3/uL Nucleated RBC % (auto) 0.0 (0.0-0.2) /100WBC Sodium 139 (135-145) mmol/L Potassium 3.6 (3.3-5.1) mmol/L Chloride 103 (96-108) mmol/L Carbon Dioxide 27 (22-29) mmol/L Anion Gap 13 (12-20) BUN 9 (9-16) mg/dL Creatinine 0.66 (0.5-1.4) mg/dL Estim Creat Clear Calc 111.3 Estimated GFR > 60 Random Glucose 146 H (60-115) mg/dL Calcium 9.7 (8.4-10.2) mg/dL Magnesium 1.8 (1.6-2.6) mg/dL Total Bilirubin 0.3 (0.0-1.0) mg/dL AST 17 (5-31) U/L ALT 12 (0-31) U/L Alkaline Phosphatase 68 (39-117) U/L Total Protein 7.2 (6.5-8.0) g/dL Albumin 3.8 (3.5-5.0) g/dL Lipase 28 (8-78) U/L Discharge Plan Discharge Clinical Impression: Costochondritis Patient Disposition: Home, Self-Care Additional Instructions: Your lungs were clear, vital signs were normal, pain is easily produced meaning it is likely in the muscles or cartilage of the chest wall EKG was normal Labs showed a mild anemia which is common in females and should be rechecked in several weeks with your doctor with a CBC test Return any time for any worsening pain, difficulty breathing any worse condition or any concerns I changed from Motrin to Naprosyn to see if it helps reduce inflammation more Oxycodone narcotic is dose dependent so you may do need to take more than 1 tablet if pain is acute Prescriptions: New naproxen [Naprosyn] 500 mg tablet 500 mg PO BID PRN (Reason: pain) Qty: 20 0RF acetaminophen 500 mg tablet 1,000 mg PO QID PRN (Reason: pain) Qty: 30 0RF No Action benzonatate 200 mg capsule 200 mg PO TID PRN (Reason: cough) Qty: 14 0RF prochlorperazine maleate [Compazine] 10 mg tablet 10 mg PO Q6H PRN (Reason: nausea and vomiting) Qty: 14 0RF albuterol sulfate 90 mcg/actuation HFA aerosol inhaler 2 puff inhalation Q6H PRN (Reason: shortness of breath or wheezing) Qty: 8.5 0RF metoclopramide HCl [Reglan] 10 mg tablet 10 mg PO Q6H PRN (Reason: nausea and vomiting) Qty: 7 0RF cefuroxime axetil 500 mg tablet 500 mg PO BID 7 Days Qty: 14 0RF oxycodone 5 mg tablet 5 mg PO Q6H PRN (Reason: pain) Qty: 20 0RF Rx Instructions: Partial Fill upon patient request. benzonatate 200 mg capsule 200 mg PO TID PRN (Reason: cough) Qty: 30 0RF prednisone 20 mg tablet 60 mg PO DAILY 4 Days Qty: 12 0RF Stand Alone Forms: Work/School Release Print Language: Citizen Of [place]
[2024-06-21 12:19] VITALS: BP 132/82; PULSE 96; RESP 16; TEMP 36.8; O2SAT 97; BMI 25.6
[2024-06-21 12:43] LABS: MANUAL DIFF FLAG NO
[2024-06-21 12:45] LABS: Basophils Percent Auto 0.3 % (0-2); Eosinophils Percent Auto 0.3 % (0-4); Hemoglobin 10.4 g/dl (12.0-16.0); Imm Gran Abs Auto 0.02 X10*3/uL (0.00-0.03); Imm Gran Pct Auto 0.2 % (0.0-0.4); Lymphocytes Absolute Auto 1.6 X10*3/uL (1.2-4.9); Lymphocytes Percent Auto 17.3 % (20-40); Mean Corpuscular HGB Conc 32.5 g/dl (31.0-35.0); Mean Corpuscular Hemoglobin 26.9 pg (27.0-33.0); Mean Corpuscular Volume 82.7 fL (80.0-98.0); Monocytes Absolute Auto 0.4 X10*3/uL (0.1-1.2); Monocytes Percent Auto 4.9 % (2-11); Neutrophils Absolute Auto 6.9 x10*3/uL (2.0-8.3); Platelet Count 291 X10*3/uL (160-400); Red Blood Count 3.87 X10*6/uL (4.20-5.50); Red Cell Distribution Width 16.2 % (11.0-16.0); White Blood Count 8.9 X10*3/uL (4.8-10.8)
[2024-06-21 12:58] LABS: Alanine Aminotransferase 12 U/L (0-31); Albumin Level 3.8 g/dL (3.5-5.0); Alkaline Phosphatase 68 U/L (39-117); Anion Gap 13 (12-20); Aspartate Amino Transferase 17 U/L (5-31); Bilirubin Total 0.3 mg/dL (0.0-1.0); Blood Urea Nitrogen 9 mg/dL (9-16); Calcium 9.7 mg/dL (8.4-10.2); Carbon Dioxide 27 mmol/L (22-29); Chloride 103 mmol/L (96-108); Creatinine Clr Calc Pharmacy 111.3; Estimated Glomerular Filt Rate > 60; Glucose Random 146 mg/dL (60-115); Lipase 28 U/L (8-78); Magnesium 1.8 mg/dL (1.6-2.6); Potassium 3.6 mmol/L (3.3-5.1); Sodium 139 mmol/L (135-145); Total Protein 7.2 g/dL (6.5-8.0)
[2024-06-21 14:55] VITALS: BP 132/82; PULSE 96; RESP 16; TEMP 36.8; O2SAT 97
== END 2024-06-21 14:55 | disposition home or self-care (01) ==
PROVIDERS: Physician Assistant Medical; Emergency Provider Emergency Medicine; PCP Family Medicine
DX: M94.0 Chondrocostal junction syndrome [Tietze] (principal); R07.89 Other chest pain; R51.9 Headache, unspecified; M54.50 Low back pain, unspecified; Z79.899 Other long term (current) drug therapy
CPT/HCPCS: 36415; 80053; 83690; 83735; 85025; 93005; 99283

== ENCOUNTER → 2024-06-21 12:08 | Outpatient (BNV) | payer OTHER, SELFPAY | PROVIDERS: Emergency Provider Emergency Medicine; PCP Family Medicine; Visit Provider Internal Medicine Cardiovascular Disease | DX: R07.9 Chest pain, unspecified (principal) | CPT/HCPCS: 93010 ==

== ENCOUNTER 2024-10-06 10:56 | Emergency (ER) | payer OTHER, SELFPAY ==
--- NOTE | 2024-10-06 11:01 | ED_ITS ---
HPI - Abdominal Pain General Stated Complaint: abd pain Related Data Previous Rx's ?Medication ?Instructions ?Recorded albuterol sulfate 90 mcg/actuation 2 puff inhalation Q6H PRN 12/07/21 aerosol inhaler shortness of breath or wheezing #8.5 grams benzonatate 200 mg capsule 200 mg PO TID PRN cough #14 caps 04/26/22 metoclopramide HCl 10 mg tablet 10 mg PO Q6H PRN nausea and 05/02/22 (Reglan) vomiting #7 tabs prochlorperazine maleate 10 mg 10 mg PO Q6H PRN nausea and 05/03/22 tablet (Compazine) vomiting #14 tabs prednisone 20 mg tablet 60 mg (3 x 20 mg) PO DAILY 4 days 05/08/23 #12 tabs benzonatate 200 mg capsule 200 mg PO TID PRN cough #30 caps 06/16/24 cefuroxime axetil 500 mg tablet 500 mg PO BID 7 days #14 tabs 06/16/24 oxycodone 5 mg tablet 5 mg PO Q6H PRN pain #20 tabs 06/16/24 acetaminophen 500 mg tablet 1,000 mg (2 x 500 mg) PO QID PRN 06/21/24 pain #30 tabs naproxen 500 mg tablet (Naprosyn) 500 mg PO BID PRN pain #20 tabs 06/21/24 Allergies Allergy/AdvReac Type Severity Reaction Status Date / Time amitriptyline [AMITRIPTYLINE] Allergy Unknown Hallucinati Verified 06/21/24 12:21 [facility] Past Medical History Medical History Asthma HTN (hypertension) Migraine Surgical History Tubal ligation status Social History Social History Alcohol intake: current Alcohol intake frequency: holidays/special occasions only Patient Tobacco Use Status: Never used Tobacco Substance Use Type: Marijuana Discharge Plan Discharge Prescriptions: No Action benzonatate 200 mg capsule 200 mg PO TID PRN (Reason: cough) Qty: 14 0RF prochlorperazine maleate [Compazine] 10 mg tablet 10 mg PO Q6H PRN (Reason: nausea and vomiting) Qty: 14 0RF albuterol sulfate 90 mcg/actuation HFA aerosol inhaler 2 puff inhalation Q6H PRN (Reason: shortness of breath or wheezing) Qty: 8.5 0RF metoclopramide HCl [Reglan] 10 mg tablet 10 mg PO Q6H PRN (Reason: nausea and vomiting) Qty: 7 0RF cefuroxime axetil 500 mg tablet 500 mg PO BID 7 Days Qty: 14 0RF oxycodone 5 mg tablet 5 mg PO Q6H PRN (Reason: pain) Qty: 20 0RF Rx Instructions: Partial Fill upon patient request. benzonatate 200 mg capsule 200 mg PO TID PRN (Reason: cough) Qty: 30 0RF prednisone 20 mg tablet 60 mg PO DAILY 4 Days Qty: 12 0RF naproxen [Naprosyn] 500 mg tablet 500 mg PO BID PRN (Reason: pain) Qty: 20 0RF acetaminophen 500 mg tablet 1,000 mg PO QID PRN (Reason: pain) Qty: 30 0RF Print Language: Cuban
[2024-10-06 11:20] VITALS: BP 162/99; PULSE 96; RESP 18; TEMP 36.9; O2SAT 98; BMI 25.9
--- NOTE | 2024-10-06 11:33 | PC.NURSE ---
POC = 92
[2024-10-06 11:34] VITALS: BP 162/99; PULSE 96; RESP 18; TEMP 36.9; O2SAT 98
[2024-10-06 11:39] LABS: Glucose, Whole Blood 92 mg/dL (60-115)
[2024-10-06 11:48] VITALS: RESP 17
[2024-10-06 11:55] LABS: MANUAL DIFF FLAG NO
[2024-10-06 11:56] LABS: Basophils Percent Auto 0.4 % (0-2); Eosinophils Percent Auto 0.6 % (0-4); Hematocrit 35.1 % (37.0-47.0); Hemoglobin 12.1 g/dl (12.0-16.0); Imm Gran Abs Auto 0.01 X10*3/uL (0.00-0.03); Imm Gran Pct Auto 0.1 % (0.0-0.4); Lymphocytes Absolute Auto 2.8 X10*3/uL (1.2-4.9); Lymphocytes Percent Auto 40.9 % (20-40); Mean Corpuscular HGB Conc 34.5 g/dl (31.0-35.0); Mean Corpuscular Hemoglobin 29.5 pg (27.0-33.0); Mean Corpuscular Volume 85.6 fL (80.0-98.0); Mean Platelet Volume 9.2 fL (9.4-12.3); Monocytes Absolute Auto 0.5 X10*3/uL (0.1-1.2); Monocytes Percent Auto 7.7 % (2-11); Neutrophils Absolute Auto 3.4 x10*3/uL (2.0-8.3); Neutrophils Percent Auto 50.3 % (45-73); Platelet Count 273 X10*3/uL (160-400); Red Cell Distribution Width 17.4 % (11.0-16.0); White Blood Count 6.7 X10*3/uL (4.8-10.8)
[2024-10-06 11:57] LABS: Appearance Urine Turbid; Color Urine Yellow; Glucose Urine UA Negative (Negative); Leukocyte Esterase Urine Negative (Negative); Nitrite Urine Negative (Negative); PH 8.5 (5.0-9.0); Specific Gravity - Urine 1.015 (1.005-1.025); UMIC TRIGGER UACC YES; Urine Blood Small (1+) (Negative); Urine Ketones Negative (Negative); Urine Protein Negative (Neg-Trace)
[2024-10-06 12:00] LABS: Bacteria Urine None Seen (None Seen); Hyaline Casts Urine 0-2 /LPF (0-2); RBC Urine >20 /HPF (0-2); WBC Urine 0-5 /HPF (0-5)
[2024-10-06 12:21] LABS: Estimated Average Glucose 100 mg/dL; Hemoglobin A1C 101.3454 umol/L; Hemoglobin A1c % 5.1 % (<6.0); Total Hemoglobin (HGBA1C) 3163.3225 umol/L
[2024-10-06 12:24] LABS: Alanine Aminotransferase 14 U/L (0-31); Albumin Level 4.3 g/dL (3.5-5.0); Alkaline Phosphatase 54 U/L (39-117); Anion Gap 11 (12-20); Aspartate Amino Transferase 22 U/L (5-31); Bilirubin Total 1.1 mg/dL (0.0-1.0); Blood Urea Nitrogen 12 mg/dL (9-16); Calcium 9.8 mg/dL (8.4-10.2); Carbon Dioxide 24 mmol/L (22-29); Chloride 106 mmol/L (96-108); Creatinine Clr Calc Pharmacy 111.9; Estimated Glomerular Filt Rate > 60; Glucose Random 94 mg/dL (60-115); HCG Quantitative < 2 mIU/mL; Lipase 22 U/L (8-78); Potassium 3.9 mmol/L (3.3-5.1); Sodium 137 mmol/L (135-145); Total Protein 7.3 g/dL (6.5-8.0)
--- NOTE | 2024-10-06 12:59 | ED.ABDPAIN ---
HPI - Abdominal Pain General Chief Complaint: Abdominal Pain Stated Complaint: abd pain Time Seen by Provider: 10/06/24 11:33 Source: patient Mode of arrival: ambulatory History of Present Illness ED Provider: Patrizia ALEJO narrative: 38-year-old female who presents with abdominal cramping and discomfort, also reports dyspeptic symptoms with bloating with associated nausea and vomiting, is currently on omeprazole 40 mg daily, she is followed through the [facility] both GI as well as primary care doctor. She did have an upper endoscopy last year which was reported as normal, patient also had gastric emptying study which was also negative. Patient reports that she has been on metformin for an unknown reason and when discussed that this could also contribute to feelings of nausea, she has had no fevers or chills, she denies any urinary symptoms but does have a known history of IBS and high blood pressure. She states that she typically only gets telehealth appointments with her primary care doctor. She has a colonoscopy scheduled 11/14/2024. Related Data Previous Rx's ?Medication ?Instructions ?Recorded albuterol sulfate 90 mcg/actuation 2 puff inhalation Q6H PRN 12/07/21 aerosol inhaler shortness of breath or wheezing #8.5 grams benzonatate 200 mg capsule 200 mg PO TID PRN cough #14 caps 04/26/22 metoclopramide HCl 10 mg tablet 10 mg PO Q6H PRN nausea and 05/02/22 (Reglan) vomiting #7 tabs prednisone 20 mg tablet 60 mg (3 x 20 mg) PO DAILY 4 days 05/08/23 #12 tabs benzonatate 200 mg capsule 200 mg PO TID PRN cough #30 caps 06/16/24 cefuroxime axetil 500 mg tablet 500 mg PO BID 7 days #14 tabs 06/16/24 oxycodone 5 mg tablet 5 mg PO Q6H PRN pain #20 tabs 06/16/24 acetaminophen 500 mg tablet 1,000 mg (2 x 500 mg) PO QID PRN 06/21/24 pain #30 tabs dicyclomine 10 mg capsule 10 mg PO TID PRN abdominal pain #7 10/06/24 caps metoclopramide HCl 10 mg tablet 10 mg PO Q6H #10 tabs 10/06/24 (Reglan) Allergies Allergy/AdvReac Type Severity Reaction Status Date / Time amitriptyline [AMITRIPTYLINE] Allergy Unknown Hallucinati Verified 10/06/24 11:24 ons Review of Systems Review of Systems Pertinent positives and negatives as stated in [facility] Past Medical History Medical History Migraine Asthma HTN (hypertension) Surgical History Tubal ligation status Social History Social History Alcohol intake: current Alcohol intake frequency: holidays/special occasions only Patient Tobacco Use Status: Never used Tobacco Smoked in Last 30 Days: No Use of substances other than those prescribed or required for medical reasons: Yes Substance Use Type: Marijuana Substance Use Frequency: Daily Advance Directives: Yes Advance Directives Information Provided: Yes Advance Directives on File: No Do you have a plan to hurt others: No Plan Physical Exam ED Vital Signs: Vital Signs - 24 hr 10/06/24 11:20 10/06/24 11:34 10/06/24 11:48 Temperature 98.4 F 98.4 F Pulse Rate 96 96 Respiratory Rate 18 18 17 Blood Pressure 162/99 H 162/99 H Pulse Oximetry 98 98 Oxygen Delivery Method Room Air Room Air BMI result Body Mass Index 25.9 VITAL SIGNS: Reviewed. GENERAL: Well developed, well nourished, in no acute distress. HEAD: Normocephalic/atraumatic EYES: PERRLA, EOMI EARS: Ext canals without abnormality NOSE: Nares patent bilateral OROPHARYNX: no oral lesions noted, posterior pharynx clear NECK: Supple, no adenopathy LUNGS: Normal breath sounds. No adventitious sounds or accessory muscle use. SpO2<98> CARDIOVASCULAR: Regular rate and rhythm without noted murmurs ABDOMEN: Soft, non-tender, non-distended with bowel sounds. MUSCULOSKELETAL: No tenderness, deformities, or effusions noted on gross inspection. EXTREMITIES: No cyanosis, clubbing or edema. SKIN: Inspection of the skin reveals no rashes NEUROLOGIC: Alert and oriented x 4. Strength and sensation to light touch were grossly intact x 4. Medical Decision Making Medical Decision Making MDM Narrative: 38-year-old female with history and clinical presentation, DD DX: Food allergies/sensitivities, IBS, no clinical suspicion for acute cholecystitis/pancreatitis/obstruction/appendicitis/renal colic/colitis. Also, possibility of medication interactions. Had a lengthy discussion with the patient regarding food allergies and medication side effects, plan to check A1c and if negative will ask patient to stop metformin as this may contribute to her underlying symptoms, also will instruct the patient to stop taking all NSAIDs as this could additionally lead to increased acid production which could lead to increased feelings of nausea. I reviewed and interpreted all investigations and there is no evidence of acute leukocytosis/anemia or thrombocytopenia. There is no demonstrated STEPHANIE/electrolyte or liver enzyme derangements there is an isolated T bili-1.1 and beta hCG is undetectable. Urinalysis with presence of hematuria but no evidence of acute infection. On re-evaluation patient is having no nausea, vomiting, A1c is noted to be 5.1 and will have the patient stop metformin. Differential Diagnosis Differential Diagnoses: The differential diagnosis associated with the presentation includes See above Admission/Observation Consideration of admission/observation: Escalation of care including admission/observation considered Patient does not meet inpatient level of care Lab Data MDM Lab Attestation statement: I reviewed the patient's lab results. See above 10/06/24 11:47 10/06/24 11:47 Labs: Lab Results 10/06/24 10/06/24 Range/Units 11:31 11:47 WBC 6.7 (4.8-10.8) X10*3/uL RBC 4.10 L (4.20-5.50) X10*6/uL Hgb 12.1 (12.0-16.0) g/dl Hct 35.1 L (37.0-47.0) % MCV 85.6 (80.0-98.0) fL MCH 29.5 (27.0-33.0) pg MCHC 34.5 (31.0-35.0) g/dl RDW 17.4 H (11.0-16.0) % Plt Count 273 (160-400) X10*3/uL MPV 9.2 L (9.4-12.3) fL Immature Gran % (Auto) 0.1 (0.0-0.4) % Neut % (Auto) 50.3 (45-73) % Lymph % (Auto) 40.9 H (20-40) % [place] % (Auto) 7.7 (2-11) % Eos % (Auto) 0.6 (0-4) % Baso % (Auto) 0.4 (0-2) % Lymph # (Auto) 2.8 (1.2-4.9) X10*3/uL [place] # (Auto) 0.5 (0.1-1.2) X10*3/uL Eos # (Auto) 0.0 (0.0-0.4) X10*3/uL Baso # (Auto) 0.0 (0.0-0.2) X10*3/uL Abs Immat Gran (auto) 0.01 (0.00-0.03) X10*3/uL Absolute Neuts (auto) 3.4 (2.0-8.3) x10*3/uL Absolute Nucleated RBC 0.000 (0.0-0.012) X10*3/uL Nucleated RBC % (auto) 0.0 (0.0-0.2) /100WBC Sodium 137 (135-145) mmol/L Potassium 3.9 (3.3-5.1) mmol/L Chloride 106 (96-108) mmol/L Carbon Dioxide 24 (22-29) mmol/L Anion Gap 11 L (12-20) BUN 12 (9-16) mg/dL Creatinine 0.66 (0.5-1.4) mg/dL Estim Creat Clear Calc 111.9 Estimated GFR > 60 POC Glucose 92 (60-115) mg/dL Random Glucose 94 (60-115) mg/dL Estimat Average Glucose 100 mg/dL Hemoglobin A1c % 5.1 (<6.0) % Calcium 9.8 (8.4-10.2) mg/dL Magnesium 1.9 (1.6-2.6) mg/dL Total Bilirubin 1.1 H (0.0-1.0) mg/dL AST 22 (5-31) U/L ALT 14 (0-31) U/L Alkaline Phosphatase 54 (39-117) U/L Total Protein 7.3 (6.5-8.0) g/dL Albumin 4.3 (3.5-5.0) g/dL Lipase 22 (8-78) U/L Beta HCG, Quant < 2 mIU/mL Urine Color Yellow Urine Appearance Turbid Urine pH 8.5 (5.0-9.0) Ur Specific [place] 1.015 (1.005-1.025) Urine Protein Negative (Neg-Trace) mg/dL Urine Glucose (UA) Negative (Negative) mg/dL Urine Ketones Negative (Negative) mg/dL Urine Blood Small (1+) H (Negative) Urine Nitrite Negative (Negative) Ur Leukocyte Esterase Negative (Negative) Urine RBC >20 H (0-2) /HPF Urine WBC 0-5 (0-5) /HPF Ur Squamous Epith Cells 3-5 (0-2) /HPF Urine Bacteria None Seen (None Seen) Hyaline Casts 0-2 (0-2) /LPF External Record Review External record reviewed: Prior outpatient labs, Prior outpatient radiology and Outside ED record Discharge Plan Discharge Clinical Impression: Abdominal discomfort Patient Disposition: Home, Self-Care Instructions: Chronic Abdominal Pain (ED) Additional Instructions: Recommend continuing with omeprazole for acid control. However, you should stop using any NSAIDs such as ibuprofen/Motrin/Naprosyn/aspirin/Excedrin as this will contribute to both acid production and stomach upset. Your hemoglobin A1c is 5.1 and at this time I recommend that you stop using the metformin as this can contribute to nausea and stomach upset. I am prescribing Reglan (metoclopramide) which it does appear you have been on previously, I recommend that you take 1 of these pills approximately 30 minutes prior to eating a meal as it should help with passage of that meal from your stomach. I am also prescribing a short course of Bentyl which can sometimes help with abdominal cramping. 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 Do not hesitate to return to the emergency room for any worsening of your symptoms. Prescriptions: New metoclopramide HCl [Reglan] 10 mg tablet 10 mg PO Q6H Qty: 10 0RF Rx Instructions: Take approximately 30 minutes prior to a meal. Do not combine with any other anti-nausea medication. dicyclomine 10 mg capsule 10 mg PO TID PRN (Reason: abdominal pain) Qty: 7 0RF Discontinued prochlorperazine maleate [Compazine] 10 mg tablet 10 mg PO Q6H PRN (Reason: nausea and vomiting) Qty: 14 0RF naproxen [Naprosyn] 500 mg tablet 500 mg PO BID PRN (Reason: pain) Qty: 20 0RF No Action benzonatate 200 mg capsule 200 mg PO TID PRN (Reason: cough) Qty: 14 0RF albuterol sulfate 90 mcg/actuation HFA aerosol inhaler 2 puff inhalation Q6H PRN (Reason: shortness of breath or wheezing) Qty: 8.5 0RF metoclopramide HCl [Reglan] 10 mg tablet 10 mg PO Q6H PRN (Reason: nausea and vomiting) Qty: 7 0RF cefuroxime axetil 500 mg tablet 500 mg PO BID 7 Days Qty: 14 0RF oxycodone 5 mg tablet 5 mg PO Q6H PRN (Reason: pain) Qty: 20 0RF Rx Instructions: Partial Fill upon patient request. benzonatate 200 mg capsule 200 mg PO TID PRN (Reason: cough) Qty: 30 0RF prednisone 20 mg tablet 60 mg PO DAILY 4 Days Qty: 12 0RF acetaminophen 500 mg tablet 1,000 mg PO QID PRN (Reason: pain) Qty: 30 0RF Referrals: Calvin Chavez MD [Primary Care Provider] - Print Language: Vincentian
[2024-10-06 13:06] LABS: Magnesium 1.9 mg/dL (1.6-2.6)
[2024-10-06 13:40] VITALS: BP 125/85; PULSE 88; RESP 20; TEMP 36.9; O2SAT 96
== END 2024-10-06 13:42 | disposition home or self-care (01) ==
PROVIDERS: Emergency Provider Student in an Organized Health Care Education/Training Program; PCP Family Medicine
DX: R10.9 Unspecified abdominal pain (principal); R11.2 Nausea with vomiting, unspecified; R14.0 Abdominal distension (gaseous); J45.909 Unspecified asthma, uncomplicated; Z79.899 Other long term (current) drug therapy
CPT/HCPCS: 36415; 80053; 81001; 82947; 83036; 83690; 83735; 84702; 85025; 99283; 99284

== ENCOUNTER 2024-11-16 09:26 | Emergency (ER) | payer OTHER, SELFPAY ==
--- NOTE | ~2024-11-16 | XR_ITS ---
EXAMINATION: XR CHEST CLINICAL INFORMATION: cough COMPARISON: 06/16/2024, 12/03/2023. TECHNIQUE: 2 views of the chest were obtained. FINDINGS: The cardiac, hilar, and mediastinal contours are normal. The lungs are clear bilaterally. There is no pneumothorax or pleural effusion. There is no focal osseous or soft tissue abnormality. XR/XR chest 2V IMPRESSION: Normal chest. Electronically signed by: Abel Collazo MD 11/16/2024 11:06 AM [facility]
[2024-11-16 09:53] VITALS: BP 135/92; PULSE 95; RESP 16; TEMP 37; O2SAT 100; BMI 24.8
--- NOTE | 2024-11-16 10:00 | ECG_ITS ---
Test Reason : cp Blood Pressure : / mmHG Vent. Rate : 089 BPM Atrial Rate : 089 BPM P-R Int : 140 ms QRS Dur : 084 ms QT Int : 350 ms P-R-T Axes : 073 037 035 degrees QTc Int : 425 ms Normal sinus rhythm Normal ECG When compared with ECG of 21-JUN-2024 12:11, No significant change was found Referred By: Generic ED Physician Electronically Signed By:Issa aMnley
[2024-11-16 10:21] VITALS: PULSE 101; RESP 18; O2SAT 98
[2024-11-16] MEDS: Albuterol Sulfate 2.5 MG, Albuterol/Iprat 2.5/0.5MG 3 ML 3 ML INHALE (10:30)
--- NOTE | 2024-11-16 10:38 | ED_ITS ---
HPI - URI/Sore Throat General Chief Complaint: Upper Respiratory Symptoms Stated Complaint: breathing issues Time Seen by Provider: 11/16/24 10:11 Source: patient and RN notes reviewed Mode of arrival: ambulatory Limitations: no limitations History of Present Illness ED Provider: Yaquelin Morales PA-C HPI Narrative: This is a 39-year-old female who presents emergency department with concerns for cough x2 days. Patient states that over the last 2 days she has had congestion, sore throat, and a cough. She states that she has had a dry cough however feels like she is unable to fully cough sputum up. 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 She states that she took a COVID test 2 days ago which was negative. She does endorse marijuana use, she does not smoke cigarettes. History of asthma. Denies any fevers or chills. No chest pain. No Nausea or diarrhea. No abdominal pain. No other complaints or concerns at this MD elicited complaint: cough, sore throat, rhinorrhea and nasal congestion Relieving factors: nothing Context: sick contacts Treatments prior to arrival: none Related Data Previous Rx's ?Medication ?Instructions ?Recorded albuterol sulfate 90 mcg/actuation 2 puff inhalation Q6H PRN 12/07/21 aerosol inhaler shortness of breath or wheezing #8.5 grams benzonatate 200 mg capsule 200 mg PO TID PRN cough #14 caps 04/26/22 metoclopramide HCl 10 mg tablet 10 mg PO Q6H PRN nausea and 05/02/22 (Reglan) vomiting #7 tabs prednisone 20 mg tablet 60 mg (3 x 20 mg) PO DAILY 4 days 05/08/23 #12 tabs benzonatate 200 mg capsule 200 mg PO TID PRN cough #30 caps 06/16/24 cefuroxime axetil 500 mg tablet 500 mg PO BID 7 days #14 tabs 06/16/24 oxycodone 5 mg tablet 5 mg PO Q6H PRN pain #20 tabs 06/16/24 acetaminophen 500 mg tablet 1,000 mg (2 x 500 mg) PO QID PRN 06/21/24 pain #30 tabs dicyclomine 10 mg capsule 10 mg PO TID PRN abdominal pain #7 10/06/24 caps metoclopramide HCl 10 mg tablet 10 mg PO Q6H #10 tabs 10/06/24 (Reglan) prednisone 20 mg tablet 40 mg (2 x 20 mg) PO DAILY 5 days 11/16/24 #10 tabs Allergies Allergy/AdvReac Type Severity Reaction Status Date / Time amitriptyline [AMITRIPTYLINE] Allergy Unknown Hallucinati Verified 11/16/24 09:59 ons Review of Systems Review of Systems: Yes all other systems are reviewed and are negative Constitutional: Constitutional: Reports as per [facility] Past Medical History Medical History Migraine Asthma HTN (hypertension) Surgical History Tubal ligation status Social History Social History Alcohol intake: current Alcohol intake frequency: holidays/special occasions only Patient Tobacco Use Status: Never used Tobacco Substance Use Type: Marijuana Physical Exam Vital Signs: Vital Signs: Last Vital Signs Temp 0 F L 11/16/24 12:34 Pulse 101 H 11/16/24 12:34 Resp 18 11/16/24 12:34 BP 00/0 L 11/16/24 12:34 Pulse Ox 100 11/16/24 09:53 O2 Del Method Room Air 11/16/24 09:53 BMI result Body Mass Index 24.8 Const: General: cooperative, comfortable and no acute distress Orientation/consciousness: patient oriented x3 Limitations: no limitations HEENT: Other: Posterior oropharynx is mildly erythematous, no tonsillar hypertrophy or exudates. Head: Yes normal to inspection, Yes normocephalic and Yes atraumatic Ears: hearing grossly normal bilaterally and TM's normal bilaterally General nose exam: Normal external nose present Face and sinus: Yes normal facial exam Mouth: Normal oral and palatal mucosa present, oropharynx normal and moist mucous membranes Throat: Yes posterior oropharynx normal Eyes: General: appearance normal, both eyes and all related structures Eyelids: Yes eyelids normal Conjunctivae: conjunctivae normal Sclerae: sclerae normal Pupils: Equal, round and reactive pupils present EOM: EOMs intact bilaterally Neck: Neck: Yes normal visual inspection, Yes full ROM and Yes no lymphadenopathy Lymphatic: no lymphadenopathy noted Chest: Chest palpation & inspection: normal inspection of the chest Resp: Effort & Inspection: normal respiratory effort and able to speak in complete sentences Auscultation: clear to auscultation bilaterally, no crackles, no rales, no rhonchi and no wheezes Cardio: Rate: regular rate Rhythm: regular rhythm Heart sounds: S1 normal heart sound present and S2 normal heart sound present GI: Inspection: Yes normal to inspection Skin: General skin exam: no rashes or lesions noted Trauma: no lacerations or abrasions Wounds: no wounds Neuro: General: patient oriented x3 and moves all extremities Cranial nerves: Yes Equal, round and reactive pupils present Extrem: General: Yes normal to inspection Right upper extremity: normal to inspection Left upper extremity: normal to inspection Right lower extr emity: normal to inspection Left lower extremity: normal to inspection Course Reevaluation(s) Reevaluation #1: Patient tested positive for RSV, urine does not appear to be infected. She had a tubal ligation and she reports no chance of . EKG normal sinus rhyt hm with no ST elevation or depression. Chest x-ray normal. Discussed overall workup with patient. Given strict return precautions. She understands and agrees with plan. Patient stable for discharge. Medications Administered Discontinued Medications Generic Name Dose Route Start Last Admin Trade Name Freq PRN Reason Stop Dose Admin Acetaminophen 975 mg 11/16/24 10:50 11/16/24 11:14 Acetaminophen 325 Mg Tablet PO 11/16/24 10:51 975 mg ONCE ONE Administration Albuterol Sulfate 2.5 mg/ 0 mg 11/16/24 10:21 11/16/24 10:30 Albuterol/Ipratropium 3 ml INHALE 11/16/24 10:22 5 dose ONCE ONE Administration Medical Decision Making Medical Decision Making [facility] Narrative: This is a 39-year-old female, with a history of asthma, who presents emergency department with complaints of cough. On arrival, vital signs within normal limits. She is speaking full sentences under no acute distress. She received updraft prior to my assessment. Her lungs are clear to auscultation bilaterally. Differential diagnoses include flu, COVID, RSV, strep, pneumonia. He also endorses urinary frequency, no dysuria, or urgency. Plan: Viral swabs, chest x-ray Differential Diagnosis Differential Diagnoses: The differential diagnosis associated with the presentation includes See above Lab Data [facility] Lab Attestation statement: I reviewed the patient's lab results. Urine within normal limits. No evidence of infection. Positive RSV. Labs: Lab Results 11/16/24 11/16/24 Range/Units 10:16 11:53 Urine Color Yellow Urine Appearance Cloudy Urine pH 6.5 (5.0-9.0) Ur Specific [place] 1.020 (1.005-1.025) Urine Protein Negative (Neg-Trace) mg/dL Urine Glucose (UA) Negative (Negative) mg/dL Urine Ketones Negative (Negative) mg/dL Urine Blood Negative (Negative) Urine Nitrite Negative (Negative) Ur Leukocyte Esterase Negative (Negative) Influenza Type A (PCR) NEGATIVE (Negative) Influenza Type B (PCR) NEGATIVE (Negative) RSV RNA Qual (PCR) POSITIVE A (Negative) SARS-CoV-2 RNA (RT-PCR) NEGATIVE (Negative) S. pyogenes GrpA KEVEN Negative (Negative) Radiology Impression Discussion of test interpretation with radiology: I have reviewed the radiologist's reading. Radiologist Impression: [place] [id number] XRay Report Signed Patient: Marysol Monroe MR#: [id number] : 1985 Acct:[id number] Age/Sex: 39 / F ADM Date: 11/16/24 Loc: .ED Attending Dr: Ordering Physician: Yaquelin Morales Date of Service: 11/16/24 Procedure(s): XR chest 2V Accession Number(s): [id number] cc: Calvin Chavez MD; Yaquelin Morales~ EXAMINATION: XR CHEST CLINICAL INFORMATION: cough COMPARISON: 06/16/2024, 12/03/2023. TECHNIQUE: 2 views of the chest were obtained. FINDINGS: The cardiac, hilar, and mediastinal contours are normal. The lungs are clear bilaterally. There is no pneumothorax or pleural effusion. There is no focal osseous or soft tissue abnormality. XR/XR chest 2V IMPRESSION: Normal chest. Electronically signed by: Abel Collazo MD 11/16/2024 11:06 AM [facility] Dictated By: Abel Collazo MD Discharge Plan Discharge Clinical Impression: RSV infection Patient Disposition: Home, Self-Care Instructions: Respiratory Syncytial Virus (ED) Additional Instructions: You were seen in the emergency department and tested positive for RSV. We are treating you with a course of prednisone, please take prescribed prednisone as directed, finish the entire course. Your urine does not appear to be infected. Your chest x-ray was normal. Please continue all at-home updrafts, nebulizers as this will help with your symptoms. Drink plenty of fluids get plenty of rest. If any new or worsening symptoms occur including but not limited to severe shortness for breath, chest pain, please seek emergent care. Prescriptions: New prednisone 20 mg tablet 40 mg PO DAILY 5 Days Qty: 10 0RF No Action benzonatate 200 mg capsule 200 mg PO TID PRN (Reason: cough) Qty: 14 0RF albuterol sulfate 90 mcg/actuation HFA aerosol inhaler 2 puff inhalation Q6H PRN (Reason: shortness of breath or wheezing) Qty: 8.5 0RF metoclopramide HCl [Reglan] 10 mg tablet 10 mg PO Q6H PRN (Reason: nausea and vomiting) Qty: 7 0RF cefuroxime axetil 500 mg tablet 500 mg PO BID 7 Days Qty: 14 0RF oxycodone 5 mg tablet 5 mg PO Q6H PRN (Reason: pain) Qty: 20 0RF Rx Instructions: Partial Fill upon patient request. benzonatate 200 mg capsule 200 mg PO TID PRN (Reason: cough) Qty: 30 0RF prednisone 20 mg tablet 60 mg PO DAILY 4 Days Qty: 12 0RF acetaminophen 500 mg tablet 1,000 mg PO QID PRN (Reason: pain) Qty: 30 0RF metoclopramide HCl [Reglan] 10 mg tablet 10 mg PO Q6H Qty: 10 0RF Rx Instructions: Take approximately 30 minutes prior to a meal. Do not combine with any other anti-nausea medication. dicyclomine 10 mg capsule 10 mg PO TID PRN (Reason: abdominal pain) Qty: 7 0RF Stand Alone Forms: Work/School Release Interventions: ED Discharge Assessment Last Done: 11/16/24 12:34 Discharge Date/Time: 11/16/24 12:35 Print Language: Bhutanese
[2024-11-16 10:50] LABS: IDNOW Serial# 58CA691E; Strep A Nucleic Acid Negative (Negative)
[2024-11-16 11:00] LABS: Influenza A PCR NEGATIVE (Negative); Influenza B PCR NEGATIVE (Negative); Resp Syncy Virus RNA Qual PCR POSITIVE (Negative); SARS COV2 PCR INHOUSE NEGATIVE (Negative)
[2024-11-16] MEDS: Acetaminophen 325 MG TABLET 975 MG PO (11:14)
[2024-11-16 12:00] LABS: Appearance Urine Cloudy; Color Urine Yellow; Glucose Urine UA Negative (Negative); Leukocyte Esterase Urine Negative (Negative); Nitrite Urine Negative (Negative); PH 6.5 (5.0-9.0); Urine Blood Negative (Negative); Urine Ketones Negative (Negative); Urine Protein Negative (Neg-Trace)
[2024-11-16 12:34] VITALS: BP 00/0; PULSE 101; RESP 18; TEMP -17.7; TEMP 0
== END 2024-11-16 12:35 | disposition home or self-care (01) ==
PROVIDERS: Physician Assistant Medical; Emergency Provider Emergency Medicine; PCP Family Medicine
DX: R05.9 Cough, unspecified (principal); J02.9 Acute pharyngitis, unspecified; B97.4 Respiratory syncytial virus as the cause of diseases classified elsewhere; Z03.818 Encounter for observation for suspected exposure to other biological agents ruled out; R07.9 Chest pain, unspecified; J45.909 Unspecified asthma, uncomplicated; I10 Essential (primary) hypertension; Z79.899 Other long term (current) drug therapy
CPT/HCPCS: 0241U; 71046; 81003; 87651; 93005; 94640; 99284

== ENCOUNTER → 2024-11-16 10:00 | Outpatient (BNV) | payer OTHER, SELFPAY | PROVIDERS: Emergency Provider Emergency Medicine; PCP Family Medicine; Visit Provider Internal Medicine Cardiovascular Disease | DX: R07.9 Chest pain, unspecified (principal) | CPT/HCPCS: 93010 ==

== ENCOUNTER → 2024-11-16 10:53 | Outpatient (BNV) | payer OTHER, SELFPAY | PROVIDERS: Emergency Provider Emergency Medicine; PCP Family Medicine; Visit Provider Radiology Diagnostic Radiology | DX: R05.9 Cough, unspecified (principal) | CPT/HCPCS: 71046 ==

== ENCOUNTER 2025-02-06 03:27 | Emergency (ER) | payer OTHER, SELFPAY ==
[2025-02-06 03:29] VITALS: BP 112/83; PULSE 96; RESP 18; TEMP 36.6; O2SAT 100; BMI 23.3
[2025-02-06 04:02] LABS: MANUAL DIFF FLAG NO
[2025-02-06 04:04] LABS: Basophils Percent Auto 0.3 % (0-2); Eosinophils Absolute Auto 0.1 X10*3/uL (0.0-0.4); Eosinophils Percent Auto 0.8 % (0-4); Hematocrit 40.7 % (37.0-47.0); Hemoglobin 13.7 g/dl (12.0-16.0); Imm Gran Abs Auto 0.04 X10*3/uL (0.00-0.03); Imm Gran Pct Auto 0.4 % (0.0-0.4); Lymphocytes Absolute Auto 2.1 X10*3/uL (1.2-4.9); Lymphocytes Percent Auto 18.2 % (20-40); Mean Corpuscular HGB Conc 33.7 g/dl (31.0-35.0); Mean Corpuscular Hemoglobin 31.4 pg (27.0-33.0); Mean Corpuscular Volume 93.3 fL (80.0-98.0); Mean Platelet Volume 9.2 fL (9.4-12.3); Monocytes Absolute Auto 0.8 X10*3/uL (0.1-1.2); Monocytes Percent Auto 6.7 % (2-11); Neutrophils Absolute Auto 8.3 x10*3/uL (2.0-8.3); Neutrophils Percent Auto 73.6 % (45-73); Platelet Count 278 X10*3/uL (160-400); Red Blood Count 4.36 X10*6/uL (4.20-5.50); Red Cell Distribution Width 12.7 % (11.0-16.0); White Blood Count 11.3 X10*3/uL (4.8-10.8)
[2025-02-06 04:29] LABS: Alanine Aminotransferase 10 U/L (0-31); Albumin Level 4.1 g/dL (3.5-5.0); Alkaline Phosphatase 53 U/L (39-117); Anion Gap 14 (12-20); Aspartate Amino Transferase 18 U/L (5-31); Bilirubin Direct 0.3 mg/dL (0.0-0.5); Bilirubin Total 1.4 mg/dL (0.0-1.0); Blood Urea Nitrogen 13 mg/dL (9-16); Calcium 9.5 mg/dL (8.4-10.2); Carbon Dioxide 21 mmol/L (22-29); Chloride 109 mmol/L (96-108); Creatinine Clr Calc Pharmacy 86.4; Estimated Glomerular Filt Rate > 60; Glucose Random 101 mg/dL (60-115); HCG Quantitative < 2 mIU/mL; Lipase 32 U/L (8-78); Potassium 4.5 mmol/L (3.3-5.1); Sodium 139 mmol/L (135-145); Total Protein 7.6 g/dL (6.5-8.0)
[2025-02-06 04:45] LABS: Appearance Urine Clear; Color Urine Dark Yellow; Glucose Urine UA Negative (Negative); Leukocyte Esterase Urine Negative (Negative); Nitrite Urine Negative (Negative); Specific Gravity - Urine >= 1.030 (1.005-1.025); UMIC TRIGGER UACC YES; Urine Blood Negative (Negative); Urine Ketones 40 mg/dL (Negative); Urine Protein 30 (1+) mg/dL (Neg-Trace)
[2025-02-06 04:48] LABS: Bacteria Urine None Seen (None Seen); RBC Urine 0-2 /HPF (0-2); WBC Urine 0-5 /HPF (0-5)
[2025-02-06] MEDS: Dicyclomine HCl 10 MG CAPSULE PO (05:52)
--- NOTE | 2025-02-06 05:59 | ED_ITS ---
HPI - Abdominal Pain General Chief Complaint: Abdominal Pain Stated Complaint: abd pain Time Seen by Provider: 02/06/25 05:36 Source: patient Mode of arrival: ambulatory Limitations: no limitations History of Present Illness ED Provider: Dr. Zina Barros HPI narrative: Patient comes to the emergency room complaining of abdominal pain, cramping. Patient states that she has history of IBS. 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 Patient's was seen yesterday [facility] for the same symptoms. Patient did not wait to be seen by any provider. Patient showed me the CT scan results that was done at [facility]: No SBO, possible enteritis. Patient complaining of nausea, no vomiting, intermittent diarrhea and constipation. Related Data Previous Rx's ?Medication ?Instructions ?Recorded albuterol sulfate 90 mcg/actuation 2 puff inhalation Q6H PRN 12/07/21 aerosol inhaler shortness of breath or wheezing #8.5 grams benzonatate 200 mg capsule 200 mg PO TID PRN cough #14 caps 04/26/22 metoclopramide HCl 10 mg tablet 10 mg PO Q6H PRN nausea and 05/02/22 (Reglan) vomiting #7 tabs prednisone 20 mg tablet 60 mg (3 x 20 mg) PO DAILY 4 days 05/08/23 #12 tabs benzonatate 200 mg capsule 200 mg PO TID PRN cough #30 caps 06/16/24 cefuroxime axetil 500 mg tablet 500 mg PO BID 7 days #14 tabs 06/16/24 oxycodone 5 mg tablet 5 mg PO Q6H PRN pain #20 tabs 06/16/24 acetaminophen 500 mg tablet 1,000 mg (2 x 500 mg) PO QID PRN 06/21/24 pain #30 tabs dicyclomine 10 mg capsule 10 mg PO TID PRN abdominal pain #7 10/06/24 caps metoclopramide HCl 10 mg tablet 10 mg PO Q6H #10 tabs 10/06/24 (Reglan) prednisone 20 mg tablet 40 mg (2 x 20 mg) PO DAILY 5 days 11/16/24 #10 tabs dicyclomine 10 mg capsule 10 mg PO TID #30 caps 02/06/25 ondansetron 4 mg disintegrating 4 mg PO Q6H PRN nausea and 02/06/25 tablet vomiting #14 tabs Allergies Allergy/AdvReac Type Severity Reaction Status Date / Time amitriptyline [AMITRIPTYLINE] Allergy Unknown Hallucinati Verified 02/06/25 03:32 ons Review of Systems Review of Systems Constitutional : No Weight loss, No Fever, No Chills, No Night Sweats, No Fatigue, No Malaise ENT/Mouth : No Hearing loss, No Ear Pain, No Nasal Congestion, No Sinus Pain, No Hoarseness, No sore throat, No Rhinorrhea, No Swallowing Difficulty Eyes: No Eye Pain, No Swelling, No Redness, No Foreign Body, No Discharge, No Vision Changes Cardiovascular : No Chest Pain, No SOB, No Dyspnea on Exertion, No Orthopnea, No Edema, No Palpitations Respiratory : No Cough, No Sputum, No Wheezing, No Smoke Exposure, No Dyspnea Gastrointestinal : No Nausea, No Vomiting, No Diarrhea, No Constipation, complaining of intermittent abdominal cramping, intermittent diarrhea and constipation Genitourinary : no irregular bleeding, No Dysuria, No Urinary Frequency, No Hematuria, No Urinary Incontinence, No Urgency, No Flank Pain, No Urinary Flow Changes, No Hesitancy Musculoskeletal : No joint pain, No Myalgias, No Joint Swelling Skin : No Skin Lesions, No rash Neuro : No Weakness, No Numbness, No Paresthesias, No Loss of Consciousness, No Dizziness, No Headache Psych : No Anxiety/Panic, No Depression, No SI/HI/AH/VH, No Social Issues, Heme/Lymph: No Bruising, No Bleeding,No Lymphadenopathy Endocrine : No Polyuria, No Polydipsia, No Temperature Intolerance [facility] Past Medical History Medical History Migraine Asthma HTN (hypertension) Surgical History Tubal ligation status Social History Social History Alcohol intake: current Alcohol intake frequency: holidays/special occasions only Patient Tobacco Use Status: Never used Tobacco Smoked in Last 30 Days: No Use of substances other than those prescribed or required for medical reasons: Yes Substance Use Type: Marijuana Substance Use Frequency: Daily Advance Directives: No Advance Directives Information Provided: Yes Do you have a plan to hurt others: No Plan Patient : No Physical Exam ED Vital Signs: Vital Signs - 24 hr 02/06/25 03:29 Temperature 97.9 F Pulse Rate 96 Respiratory Rate 18 Blood Pressure 112/83 Pulse Oximetry 100 Oxygen Delivery Method Room Air BMI result Body Mass Index 23.3 Const Other: Appearance: Alert. Oriented X3. No acute distress. Well-appearing Eyes: Pupils equal, round and reactive to light. ENT: Pharynx normal. Neck: Normal inspection. Neck supple. No lymph nodes noted. No crepitus CVS: Normal heart rate and rhythm. Pulses normal. Normal S1 and S2 Respiratory: No respiratory distress. Breath sounds normal. No Wheezing. No rales Abdomen: Soft and nontender. No rigidity. No distention. , no rebound no guarding Skin: Skin warm and dry. Normal skin color. Normal skin turgor. Extremities: No lower extremity edema. No Lacerations. No Rash Neuro: Oriented X 3. No motor deficit. No sensory deficit. Moving all extremities. No slurred speech. CN 2 through 12 grossly intact Psych: calm, cooperative, normal affect Medical Decision Making Medical Decision Making [facility] Narrative: My interpretation of labs: Patient's white blood cell count 11.3, likely reactive leukocytosis. No significant abnormality in patient's chemistry, normal LFTs, normal lipase, hCG negative. Urinalysis negative for UTI Patient showed me her CT scan report on her phone from [employer] yesterday, showed no acute abnormality, possible enteritis, small amount of fluid intestine Patient has an appointment pending with her automatic nailing machine feeder. Patient was given dicyclomine in the ED, patient agreeable to start a short course of dicyclomine while she sees her GI doctor in a few days at [facility] Lab Data [facility] Lab Attestation statement: I reviewed the patient's lab results. 02/06/25 03:46 02/06/25 03:46 Labs: Lab Results 02/06/25 02/06/25 Range/Units 03:46 04:36 WBC 11.3 H (4.8-10.8) X10*3/uL RBC 4.36 (4.20-5.50) X10*6/uL Hgb 13.7 (12.0-16.0) g/dl Hct 40.7 (37.0-47.0) % MCV 93.3 (80.0-98.0) fL MCH 31.4 (27.0-33.0) pg MCHC 33.7 (31.0-35.0) g/dl RDW 12.7 (11.0-16.0) % Plt Count 278 (160-400) X10*3/uL MPV 9.2 L (9.4-12.3) fL Immature Gran % (Auto) 0.4 (0.0-0.4) % Neut % (Auto) 73.6 H (45-73) % Lymph % (Auto) 18.2 L (20-40) % [facility] % (Auto) 6.7 (2-11) % Eos % (Auto) 0.8 (0-4) % Baso % (Auto) 0.3 (0-2) % Lymph # (Auto) 2.1 (1.2-4.9) X10*3/uL [facility] # (Auto) 0.8 (0.1-1.2) X10*3/uL Eos # (Auto) 0.1 (0.0-0.4) X10*3/uL Baso # (Auto) 0.0 (0.0-0.2) X10*3/uL Abs Immat Gran (auto) 0.04 H (0.00-0.03) X10*3/uL Absolute Neuts (auto) 8.3 (2.0-8.3) x10*3/uL Absolute Nucleated RBC 0.000 (0.0-0.012) X10*3/uL Nucleated RBC % (auto) 0.0 (0.0-0.2) /100WBC Sodium 139 (135-145) mmol/L Potassium 4.5 (3.3-5.1) mmol/L Chloride 109 H (96-108) mmol/L Carbon Dioxide 21 L (22-29) mmol/L Anion Gap 14 (12-20) BUN 13 (9-16) mg/dL Creatinine 0.77 (0.5-1.4) mg/dL Estim Creat Clear Calc 86.4 Estimated GFR > 60 Random Glucose 101 (60-115) mg/dL Calcium 9.5 (8.4-10.2) mg/dL Total Bilirubin 1.4 H (0.0-1.0) mg/dL Direct Bilirubin 0.3 (0.0-0.5) mg/dL AST 18 (5-31) U/L ALT 10 (0-31) U/L Alkaline Phosphatase 53 (39-117) U/L Total Protein 7.6 (6.5-8.0) g/dL Albumin 4.1 (3.5-5.0) g/dL Lipase 32 (8-78) U/L Beta HCG, Quant < 2 mIU/mL Urine Color Dark Yellow Urine Appearance Clear Urine pH 6.0 (5.0-9.0) Ur Specific [place] >= 1.030 H (1.005-1.025) Urine Protein 30 (1+) H (Neg-Trace) mg/dL Urine Glucose (UA) Negative (Negative) mg/dL Urine Ketones 40 (Negative) mg/dL Urine Blood Negative (Negative) Urine Nitrite Negative (Negative) Ur Leukocyte Esterase Negative (Negative) Urine RBC 0-2 (0-2) /HPF Urine WBC 0-5 (0-5) /HPF Ur Squamous Epith Cells 6-10 (0-2) /HPF Urine Bacteria None Seen (None Seen) Hyaline Casts 3-5 (0-2) /LPF Medications Administered Discontinued Medications Generic Name Dose Route Start Last Admin Trade Name Freq PRN Reason Stop Dose Admin Dicyclomine HCl 10 mg 02/06/25 05:46 02/06/25 05:52 Dicyclomine Hcl 10 Mg Capsule PO 02/06/25 05:47 10 mg ONCE ONE Administration Discharge Plan Discharge Clinical Impression: Abdominal pain Patient Disposition: Home, Self-Care Instructions: Dicyclomine (By mouth), Irritable Bowel Syndrome (ED) Additional Instructions: Please follow-up with your primary care physician tomorrow. If you have any worsening or new symptoms, please return to the emergency room or call 911 Prescriptions: New dicyclomine 10 mg capsule 10 mg PO TID Qty: 30 1RF ondansetron 4 mg tablet,disintegrating 4 mg PO Q6H PRN (Reason: nausea and vomiting) Qty: 14 0RF No Action benzonatate 200 mg capsule 200 mg PO TID PRN (Reason: cough) Qty: 14 0RF albuterol sulfate 90 mcg/actuation HFA aerosol inhaler 2 puff inhalation Q6H PRN (Reason: shortness of breath or wheezing) Qty: 8.5 0RF metoclopramide HCl [Reglan] 10 mg tablet 10 mg PO Q6H PRN (Reason: nausea and vomiting) Qty: 7 0RF cefuroxime axetil 500 mg tablet 500 mg PO BID 7 Days Qty: 14 0RF oxycodone 5 mg tablet 5 mg PO Q6H PRN (Reason: pain) Qty: 20 0RF Rx Instructions: Partial Fill upon patient request. benzonatate 200 mg capsule 200 mg PO TID PRN (Reason: cough) Qty: 30 0RF prednisone 20 mg tablet 40 mg PO DAILY 5 Days Qty: 10 0RF prednisone 20 mg tablet 60 mg PO DAILY 4 Days Qty: 12 0RF acetaminophen 500 mg tablet 1,000 mg PO QID PRN (Reason: pain) Qty: 30 0RF metoclopramide HCl [Reglan] 10 mg tablet 10 mg PO Q6H Qty: 10 0RF Rx Instructions: Take approximately 30 minutes prior to a meal. Do not combine with any other anti-nausea medication. dicyclomine 10 mg capsule 10 mg PO TID PRN (Reason: abdominal pain) Qty: 7 0RF Stand Alone Forms: Work/School Release Print Language: Estonian
[2025-02-06 06:16] VITALS: BP 118/72; PULSE 87; RESP 16; TEMP 36.8; O2SAT 97
== END 2025-02-06 06:16 | disposition home or self-care (01) ==
PROVIDERS: Emergency Provider Emergency Medicine; PCP Family Medicine
DX: R10.9 Unspecified abdominal pain (principal)
CPT/HCPCS: 36415; 80053; 80076; 81001; 82248; 83690; 84702; 85025; 99283; 99284

== ENCOUNTER → 2025-07-14 03:42 | Outpatient (BNV) | payer OTHER, SELFPAY | PROVIDERS: Visit Provider Radiology Diagnostic Radiology | DX: M25.421 Effusion, right elbow (principal) | CPT/HCPCS: 73070 ==

== ENCOUNTER 2025-07-14 04:22 | Emergency (ER) | payer OTHER, SELFPAY ==
--- NOTE | ~2025-07-14 | XR_ITS ---
CLINICAL HISTORY: injured at work, pain 3 view right elbow Comparison: None provided Findings: No acute fractures. Normal alignment. No significant loss of joint space, osteophytes, or erosions. Elbow joint effusion. No radiopaque foreign body. IMPRESSION: No acute fracture. Small elbow joint effusion. This document has been electronically signed by: Autumn Graff MD on 07/14/2025 05:46:56
[2025-07-14 04:23] VITALS: BP 137/89; PULSE 88; RESP 18; TEMP 36.4; O2SAT 100; BMI 21.0
[2025-07-14 05:19] VITALS: BP 105/70; PULSE 82; RESP 16; TEMP 36.7; O2SAT 98
--- NOTE | 2025-07-14 06:38 | ED_ITS ---
HPI - Extremity Problem General Chief complaint: Extremity Injury, Upper Stated complaint: arm pain Time Seen by Provider: 07/14/25 06:30 Source: patient Mode of arrival: ambulatory Limitations: no limitations History of Present Illness ED Provider: Dr. Zina Barros HPI Narrative: Patient comes to the emergency room complaining of right elbow pain. According to the patient, last time she was working at [employer], patient states that she was working and trying to separate a fight. Patient states that she has pain on the inside of the elbow. Patient able to flex and extend her elbow with a restriction of range of motion but hurts doing so. Patient denies any other injuries. Rest or shoulder pain. Related Data Previous Rx's ?Medication ?Instructions ?Recorded albuterol sulfate 90 mcg/actuation 2 puff inhalation Q 6H PRN 12/07/21 aerosol inhaler shortness of breath or wheez ing #8.5 grams benzonatate 200 mg capsule 200 mg PO TID PRN cough #14 caps 04/26/22 metoclopramide HCl 10 mg tablet 10 mg PO Q6H PRN nause a and 05/02/22 (Reglan) vomiting #7 tabs prednisone 20 mg tablet 60 mg (3 x 20 mg) PO DAILY 4 days 05/08/23 #12 tabs benzonatate 200 mg capsule 200 mg PO TID PRN cough #30 caps 06/16/24 cefuroxime axetil 500 mg tablet 500 mg PO BID 7 days # 14 tabs 06/16/24 oxycodone 5 mg tablet 5 mg PO Q6H PRN pain #20 tab s 06/16/24 acetaminophen 500 mg tablet 1,000 mg (2 x 500 mg) PO Q ID PRN 06/21/24 pain #30 tabs dicyclomine 10 mg capsule 10 mg PO TID PRN abdominal p ain #7 10/06/24 caps metoclopramide HCl 10 mg tablet 10 mg PO Q6H #10 tabs 10/06/24 (Reglan) prednisone 20 mg tablet 40 mg (2 x 20 mg) PO DAILY 5 days 11/16/24 #10 tabs dicyclomine 10 mg capsule 10 mg PO TID #30 caps ondansetron 4 mg disintegrating 4 mg PO Q6H PRN nausea and 02/06/25 tablet vomiting #14 tabs ketorolac 10 mg tablet 10 mg PO Q8H PRN pain #10 ta bs 07/14/25 Allergies Allergy/AdvReac Type Severity Reaction Status Date / Time amitriptyline (AMITRIPTYLINE) Allergy Unknown Hallucinati Verified 07/14/25 04:30 ons Review of Systems Review of Systems: Constitutional : No Weight loss, No Fever, No Chills, No Night Sweats, No Fatigue, No Malaise ENT/Mouth : No Hearing loss, No Ear Pain, No Nasal Congestion, No Sinus Pain, No Hoarseness, No sore throat, No Rhinorrhea, No Swallowing Difficulty Eyes: No Eye Pain, No Swelling, No Redness, No Foreign Body, No Discharge, No Vision Changes Cardiovascular : No Chest Pain, No SOB, No Dyspnea on Exertion, No Orthopnea, No Edema, No Palpitations Respiratory : No Cough, No Sputum, No Wheezing, No Smoke Exposure, No Dyspnea Gastrointestinal : No Nausea, No Vomiting, No Diarrhea, No Constipation, No abdominal Pain, No Hematochezia, No Melena Genitourinary : no irregular bleeding, No Dysuria, No Urinary Frequency, No Hematuria, No Urinary Incontinence, No Urgency, No Flank Pain, No Urinary Flow Changes, No Hesitancy Musculoskeletal complaining of right elbow pain No Myalgias, No Joint Swelling Skin : No Skin Lesions, No rash Neuro : No Weakness, No Numbness, No Paresthesias, No Loss of Consciousness, No Dizziness, No Headache Psych : No Anxiety/Panic, No Depression, No SI/HI/AH/VH, No Social Issues, Heme/Lymph: No Bruising, No Bleeding,No Lymphadenopathy Endocrine : No Polyuria, No Polydipsia, No Temperature Intolerance [facility] Past Medical History Medical History Migraine Asthma HTN (hypertension) Surgical History Tubal ligation status Social History Social History Alcohol intake: current Alcohol intake frequency: holidays/special occasions only Patient Tobacco Use Status: Never used Tobacco Smoked in Last 30 Days: No Use of substances other than those prescribed or required for medical reasons: Yes Substance Use Type: Marijuana Advance Directives: No Advance Directives Information Provided: Yes Physical Exam Exam: Exam: Appearance: Alert. Oriented X3. No acute distress. Eyes: Pupils equal, round and reactive to light. ENT: Pharynx normal. Neck: Normal inspection. Neck supple. No lymph nodes noted. No crepitus CVS: Normal heart rate and rhythm. Pulses normal. Normal S1 and S2 Respiratory: No respiratory distress. Breath sounds normal. No Wheezing. No rales Abdomen: Soft and nontender. No rigidity. No distention. Skin: Skin warm and dry. Normal skin color. Normal skin turgor. Extremities: Patient has a normal range of motion with flexion and extension of the elbow, pain to palpation to the medial epicondyle. No Lacerations. No Rash Neuro: Oriented X 3. No motor deficit. No sensory deficit. Moving all extremities. No slurred speech. CN 2 through 12 grossly intact Psych: calm, cooperative, normal affect Vital Signs: Vital Signs: Last Vital Signs Temp 98.0 F 07/14/25 05:19 Pulse 82 07/14/25 05:19 Resp 16 07/14/25 05:19 BP 105/70 07/14/25 05:19 Pulse Ox 98 07/14/25 05:19 O2 Del Method Room Air 07/14/25 05:19 BMI result Body Mass Index 21.0 Medical Decision Making Medical Decision Making MDM Narrative: X-rays did not show any acute abnormality other than a small effusion, no bony abnormality, no dislocation or fracture. Discussed with the patient to apply ice at least for the 1st 24 hours on enough, patient requested IM medication, patient given ketorolac Patient will follow-up with work connections Differential Diagnosis Differential Diagnoses: The differential diagnosis associated with the presentation includes (Elbow Contusion, dislocation, fracture) Independent Interpretation I performed an independent interpretation of an: Plain X-Ray Radiology Impression Discussion of test interpretation with radiology: I have reviewed the radiologist's reading. Radiologist Impression: No acute fractures. Normal alignment. No significant loss of joint space, osteophytes, or erosions. Elbow joint effusion. No radiopaque foreign body. Discharge Plan Discharge Clinical Impression: Elbow pain Patient Disposition: Home, Self-Care Instructions: Arm Pain (ED) Additional Instructions: Please follow-up with your primary care physician tomorrow. If you have any worsening or new symptoms, please return to the emergency room or call 911 Prescriptions: New ketorolac 10 mg tablet 10 mg PO Q8H PRN (Reason: pain) Qty: 10 0RF Rx Instructions: Do not use this medication and any other NSAIDs, only Tylenol if needed No Action benzonatate 200 mg capsule 200 mg PO TID PRN (Reason: cough) Qty: 14 0RF albuterol sulfate 90 mcg/actuation HFA aerosol inhaler 2 puff inhalation Q6H PRN (Reason: shortness of breath or wheezing) Qty: 8.5 0RF metoclopramide HCl [Reglan] 10 mg tablet 10 mg PO Q6H PRN (Reason: nausea and vomiting) Qty: 7 0RF cefuroxime axetil 500 mg tablet 500 mg PO BID 7 Days Qty: 14 0RF oxycodone 5 mg tablet 5 mg PO Q6H PRN (Reason: pain) Qty: 20 0RF Rx Instructions: Partial Fill upon patient request. benzonatate 200 mg capsule 200 mg PO TID PRN (Reason: cough) Qty: 30 0RF prednisone 20 mg tablet 40 mg PO DAILY 5 Days Qty: 10 0RF prednisone 20 mg tablet 60 mg PO DAILY 4 Days Qty: 12 0RF acetaminophen 500 mg tablet 1,000 mg PO QID PRN (Reason: pain) Qty: 30 0RF metoclopramide HCl [Reglan] 10 mg tablet 10 mg PO Q6H Qty: 10 0RF Rx Instructions: Take approximately 30 minutes prior to a meal. Do not combine with any other anti-nausea medication. dicyclomine 10 mg capsule 10 mg PO TID PRN (Reason: abdominal pain) Qty: 7 0RF dicyclomine 10 mg capsule 10 mg PO TID Qty: 30 1RF ondansetron 4 mg tablet,disintegrating 4 mg PO Q6H PRN (Reason: nausea and vomiting) Qty: 14 0RF Referrals: Chucho Hebert MD [Physician, Occupational Medicine] Print Language: Barbadian
--- NOTE | 2025-07-14 07:15 | PC.NURSE ---
report wasnt obtained for this patient as they were up for discharge- upon nights going to discharge with this nurse pt stated she was to get an IM injection which hadnt been ordered. provider was notified. pt was medicated for 10/10 pain and discharged.
[2025-07-14 07:16] VITALS: BP 105/70; PULSE 82; RESP 16; TEMP 36.7; O2SAT 98
== END 2025-07-14 07:16 | disposition home or self-care (01) ==
PROVIDERS: Emergency Provider Emergency Medicine
DX: M25.521 Pain in right elbow (principal)
CPT/HCPCS: 73070; 96372; 99284; J1885

== ENCOUNTER 2025-08-07 03:58 | Emergency (ER) | payer OTHER, SELFPAY ==
--- NOTE | ~2025-08-07 | XR_ITS ---
CLINICAL HISTORY: Cough 1 view chest x-ray. Comparison: CR/SR - XR CHEST 2 VIEWS - 11/16/24 11:03 EST Findings: The lungs are adequately expanded. No focal consolidation. No effusion or pneumothorax. Cardiac and mediastinal contours are within normal limits. No acute osseous abnormality Impression: No acute process. This document has been electronically signed by: Octavio Osman MD on 08/07/2025 06:13:22
[2025-08-07 04:01] VITALS: BP 117/72; PULSE 93; RESP 20; TEMP 36.6; O2SAT 98; BMI 21.1
--- OUTSIDE RECORDS SUMMARY | 2025-08-07 04:35 | XMS_ITS | Clinical Summary ---
Author Organization [facility] Address [address] [place] [phone] Phone Care Team Providers Care Bit Shaver Name Role Phone Calvin Chavez MD Primary Care Provide r Allergies Active Allergy Reactions Criticality Noted Date Comments Amitriptyline Hallucinations High 12/25/2023 Medications lisinopril (PRINIVIL,ZESTRI L) 20 MG tablet Take 20 mg by mouth daily. Active cetirizine (ZYRTEC) 10 MG tablet Take 10 mg by mouth daily. Active omeprazole (PRILOSEC) 20 MG tablet Take 20 mg by mouth daily. Active gabapentin (NEURONTIN) 600 MG tablet Take 600 mg by mouth daily. Active aspirin 81 MG EC tablet Take 81 mg by mouth daily. Active metFORMIN (GLUCOPHAGE) 500 MG tablet Take 500 mg by mouth daily with breakfast. Active topiramate (TOPAMAX) 25 MG capsule Take 25 mg by mouth 2 (two) times a day. Active aluminum-magnesi um hydroxide-simeth icone (MAALOX) 200-200-20 mg/5 mL Susp Take 30 mL by mouth every 6 (six) hours as needed. 300 mL 12/25/2023 Active Social History Tobacco Use Types Packs/Day Years Used Date Smoking Tobacco: Never Assessed Education Answer Date Recorded Are you interested in more education? Not on jai e 12/25/2023 Are you concerned about learning? Not on file 12/25/2023 No 12/25/2023 No 12/25/2023 Digital Access Answer Date Recorded No 12/25/2023 No 12/25/2023 Reliable internet access at home? Not on file 12/25/2023 Device with a working camera? Not on file Intimate Partner Violence Answer Date R ecorded Are you denied basic needs s uch as food, clothing, or medical care? No 02/05/2025 In the past 12 months have y ou been in a relationship with a person who hurts, threatens, or tries to control you? No 02/05/2025 Are you denied basic needs s uch as food, clothing, or medical care? No 02/05/2025 In the past 12 months have y ou been in a relationship with a person who hurts, threatens, or tries to control you? No 02/05/2025 Comments Unknown Sex and Gender Information Value Date Recorded Sex Assigned at Female 12/25/2023 7:14 PM EST Legal Sex Female 5:38 PM EST Gender Identity Female 12/25/2023 7:14 PM EST Sexual Orientation Straight 12/25/2023 7: 14 PM EST Last Filed Vital Signs Vital Sign Reading Time Taken Comments Blood Pressure 108/74 02/05/2025 7:34 PM EDT Pulse 79 02/05/2025 7:34 PM EDT Temperature 37.3 C (99.1 F) 02/05/2025 7:34 PM EDT Respiratory Rate 16 02/05/2025 7:34 PM EDT Oxygen Saturation 100% 02/05/2025 7:34 PM EDT Inhaled Oxygen Concentration - - Weight 61.7 kg (136 lb) 02/05/2025 4:25 PM EDT Height 162.6 cm (5' 4 ) 02/05/2025 4:25 PM EDT Body Mass Index 23.34 02/05/2025 4:25 PM EDT Plan of Treatment Health Maintenance Due Date Last Done Comments Adult Td,Tdap Booster 1987 DEPRESSION SCREENING 1999 SMOKING Hx and SMOKELESS TOBACCO SCREENING 2000 HEPATITIS C SCREENING 2005 HIV ONE-TIME SCREENING (18-6 5 YEARS) 2005 PAP SMEAR 2008 INFLUENZA VACCINE (#1) 2025 COVID-19 VACCINE (2023-2 5 season) 2025 CREATININE LEVEL 02/05/2026 02/05/2025, 12/18/2024, 12/25/2023 POTASSIUM LEVEL 02/05/2026 02/05/2025, 12/18/2024, 12/25/2023 HEPATITIS A VACCINES Aged Out No long er eligible based on patient's age to complete this topic HIB VACCINES Aged Out No longer eligi ble based on patient's age to complete this topic MENINGOCOCCAL VACCINES (ACWY) Aged Out No longer eligible based on patient's age to complete this topic MENINGOCOCCAL VACCINES (B) Aged Out N o longer eligible based on patient's age to complete this topic PNEUMOCOCCAL VACCINES (0-49 years) Aged Out No longer eligible b ased on patient's age to complete this topic Medical Devices Not on file Procedures Procedure Name Priority Date/Time Associated Diagnosis Comments BASIC METABOLIC PANEL STAT 02/05/2025 4:44 PM EDT from Last 3 Months or Most Recently Relevant to Health Maintenance Results * (ABNORMAL) Basic metabolic panel (02/05/2025 4:44 PM EDT) SODIUM 139 133 - 146 mmol/L [facility] CHLORIDE 105 96 - 108 mmol/L [facility] POTASSIUM 4.3 3.3 - 5.1 mmol/L [facility] CO2 23 21 - 35 mmol/L [facility] BUN 10 6 - 19 mg/dL [facility] CREATININE 0.70 0.5 - 1.5 mg/dL [facility] GLUCOSE 110(H) 70 - 99 mg/dL [facility] CALCIUM 9.7 8.4 - 10.3 mg/dL [facility] EGFR 114 >59 mL/min/1.7 3m2 [facility] Comment:Estimated glomerular filtration rate calculated using the CKD-EPI refit equation. ANION GAP 15 10 - 20 mmol/L [facility] Blood 02/05/2025 4:44 PM EDT 02/05/2025 4:47 PM EDT us Cait Rider MD, PhD LAB BLOOD ORDERABLE S Final Result [address] [id number] from Last 3 Months or Most Recently Relevant to Health Maintenance Insurance [employer] Care Teams Bit Shaver Relationship Specialty Start Date End Date Calvin Chavez MD [address] [place] [id number] PCP - General Family Medicine 12/25/23 Additional Source Comments The information contained in this document represents components of the legal health record. It is not the complete legal health record.[facility]
--- OUTSIDE RECORDS SUMMARY | 2025-08-07 04:35 | XMS_ITS | Encounter Summary ---
Author Organization [facility] Address [address] [place] [address] [place] [id number] Phone Care Team Providers Care Pharmaceutical Detailer Name Role Phone Calvin Chavez MD Primary Care Provide r Encounter Details Date Type Department Care Team (Late st Contact Info) Description 02/05/2025 Procedure Pass [facility], Ct Scan - [address] [id number] Social History Tobacco Use Types Packs/Day Years [...] Orientation Straight 12/25/2023 7: 14 PM EST documented as of this encounter Functional Status * Calculated C-SSRS Risk Score (Lifetime/Recent) Answer Date of Assessment Author No Risk Indicated 02/05/2025 4:27 PM EDT Tanvi Fernandez RN * [place] Suicide Severity Rating Scale (Screener/Recent Self-Report) Question Answer Date of Assessment Author 1. Wish to be (Past 1 Month) No 025 4:27 PM EDT Tanvi Fernandez, KEVIN 2. Non-Specific Active Suici fernando Thoughts (Past 1 Month) No 02/05/2025 4:27 PM EDT Tanvi Fernandez , KEVIN 6. Suicidal Behavior (Lifetime) No 5 4:27 PM EDT Tanvi Fernandez, KEVIN documented as of this encounter Plan of Treatment Not on file documented as of this encounter Visit Diagnoses Not on filedocumented in this encounter Care Teams Pharmaceutical Detailer Relationship Specialty Start Date End Date Calvin Chavez MD [address] [place] [address] PCP - General Family Medicine 12/25/23 documented as of this encounter Additional Source Comments The information contained in this document represents components of the legal health record. It is not the complete legal health record.[facility]
[2025-08-07 04:51] LABS: COVID-19 Test Negative (Negative); IDNOW Serial# 55D5AD1C; IDNOW Serial# 58CA691E; Influenza B2 Negative (Negative)
--- NOTE | 2025-08-07 06:00 | ED.URI ---
HPI - URI/Sore Throat General Chief Complaint: Upper Respiratory Symptoms Stated Complaint: bad cough Time Seen by Provider: 08/07/25 05:50 Source: patient, family and old records reviewed Mode of arrival: ambulatory Limitations: no limitations History of Present Illness ED Provider: DARLIN ALEJO Narrative: 39 yo female with PMH of asthma who has a rescue inhaler no recent prednisone here with c/o loose stools, productive cough, body aches, chills. No recent travel, sick contacts. She has a headache as well. She reports no fevers and no relief with sick contacts. MD elicited complaint: cough, sore throat and nasal congestion Pertinent past history: asthma Onset (ago): day(s) (Wednesday) Consistency: constant Severity: mild Able to tolerate fluids by mouth: Yes Exacerbating factors: other (coughing) Relieving factors: OTC cold medicine Associated symptoms: chills, myalgias, nasal congestion, sore throat and cough Treatments prior to arrival: none Related Data Previous Rx's ?Medication ?Instructions ?Recorded albuterol sulfate 90 mcg/actuation 2 puff inhalation Q6H PRN 12/07/21 aerosol inhaler shortness of breath or wheezing #8.5 grams benzonatate 200 mg capsule 200 mg PO TID PRN cough #14 caps 04/26/22 metoclopramide HCl 10 mg tablet 10 mg PO Q6H PRN nausea and 05/02/22 (Reglan) vomiting #7 tabs prednisone 20 mg tablet 60 mg (3 x 20 mg) PO DAILY 4 days 05/08/23 #12 tabs benzonatate 200 mg capsule 200 mg PO TID PRN cough #30 caps 06/16/24 cefuroxime axetil 500 mg tablet 500 mg PO BID 7 days #14 tabs 06/16/24 oxycodone 5 mg tablet 5 mg PO Q6H PRN pain #20 tabs 06/16/24 acetaminophen 500 mg tablet 1,000 mg (2 x 500 mg) PO QID PRN 06/21/24 pain #30 tabs dicyclomine 10 mg capsule 10 mg PO TID PRN abdominal pain #7 10/06/24 caps metoclopramide HCl 10 mg tablet 10 mg PO Q6H #10 tabs 10/06/24 (Reglan) prednisone 20 mg tablet 40 mg (2 x 20 mg) PO DAILY 5 days 11/16/24 #10 tabs dicyclomine 10 mg capsule 10 mg PO TID #30 caps 02/06/25 ondansetron 4 mg disintegrating 4 mg PO Q6H PRN nausea and 02/06/25 tablet vomiting #14 tabs ketorolac 10 mg tablet 10 mg PO Q8H PRN pain #10 tabs 07/14/25 azithromycin 250 mg tablet 250 mg PO DAILY 4 days #4 tabs 08/07/25 prednisone 20 mg tablet 40 mg (2 x 20 mg) PO DAILY 4 days 08/07/25 #8 tabs Allergies Allergy/AdvReac Type Severity Reaction Status Date / Time amitriptyline (AMITRIPTYLINE) Allergy Unknown Hallucinati Verified 08/07/25 04:05 ons Review of Systems Review of Systems: Constitutional : No Fever, pos Chills, pos Fatigue ENT/Mouth : No sore throat, pos Rhinorrhea Eyes: No Eye Pain, No Swelling, No Redness Cardiovascular : No Chest Pain, No SOB, No Dyspnea on Exertion Respiratory : pos Cough, pos Sputum Gastrointestinal : pos Nausea, No Vomiting, pos Diarrhea, No abdominal Pain Genitourinary : No Dysuria, No Urinary Frequency, No Hematuria, Musculoskeletal : No joint pain, No Myalgias, No Joint Swelling Skin : No Skin Lesions, No rash Neuro : No Weakness, No Numbness, No Dizziness, positive Headache All other systems reviewed and are negative [facility] Past Medical History Attestation statement: The following information was validated with the patient. Source: old records reviewed Medical History Migraine Asthma HTN (hypertension) Surgical History Tubal ligation status Social History Social History Alcohol intake: current Alcohol intake frequency: holidays/special occasions only Patient Tobacco Use Status: Never used Tobacco Substance Use Type: Marijuana Advance Directives: No Advance Directives Information Provided: Yes Do you have a plan to hurt others: No Plan Physical Exam Vital Signs: Vital Signs: Last Vital Signs Temp 97.6 F 08/07/25 06:11 Pulse 90 08/07/25 06:11 Resp 16 08/07/25 06:11 BP 122/80 08/07/25 06:11 Pulse Ox 99 08/07/25 06:11 O2 Del Method Room Air 08/07/25 06:11 BMI result Body Mass Index 21.1 Appearance: Alert. Oriented X3. No acute distress. Eyes: Pupils equal, round and reactive to light. ENT: Pharynx normal. Neck: Normal inspection. Neck supple. CVS: Normal heart rate and rhythm. Pulses normal. Respiratory: No respiratory distress. Breath sounds diminished but no wheezes. Abdomen: Soft and nontender. Skin: Skin warm and dry. Normal skin color. Extremities: No lower extremity edema. Neuro: Oriented X 3. No motor deficit. No sensory deficit. Medications Administered Discontinued Medications Generic Name Dose Route Start Last Admin Trade Name Freq PRN Reason Stop Dose Admin Azithromycin 500 mg 08/07/25 06:01 08/07/25 06:12 Azithromycin 500 Mg Tablet PO 08/07/25 06:02 500 mg ONCE ONE Administration Prednisone 40 mg 08/07/25 06:01 08/07/25 06:12 Prednisone 20 Mg Tablet PO 08/07/25 06:02 40 mg ONCE ONE Administration Medical Decision Making Medical Decision Making [facility] Narrative: 39 yo female with PMH of asthma here with c/o fatigue, chills, URI symptoms and body aches at this time will need viral panel and CXR. Plan to treat for bronchitis. Will start on prednisone and zpak. Given precaustions to return Differential Diagnosis Differential Diagnoses: The differential diagnosis associated with the presentation includes URI, bronchitis, pneumonia Admission/Observation Consideration of admission/observation: Escalation of care including admission/observation considered VS stable, no resp distress can tolerate PO Lab Data [facility] Lab Attestation statement: I reviewed the patient's lab results. Labs: Lab Results 08/07/25 Range/Units 04:21 COVID-19 (DE) Negative (Negative) COVID-19 Clin Com See Note Influenza Type A ([place]) Negative (Negative) Influenza Type B ([facility]VEN) Negative (Negative) Influenza A & B Note See Note Independent Interpretation I performed an independent interpretation of an: Plain X-Ray (no pneumonia) Radiology Impression Discussion of test interpretation with radiology: I have reviewed the radiologist's reading. Independent Historian Clinical information obtained from an independent historian. History obtained from or confirmed by: Spouse External Record Review External record reviewed: Outpatient record Prescription Management I considered prescription management with: Antibiotic and Other Discharge Plan Discharge Clinical Impression: Bronchitis Patient Disposition: Home, Self-Care Instructions: Acute Bronchitis (ED) Additional Instructions: you are negative for covid and flu will treat for bronchitis return for worsening symptoms, unable to breath or any other concerns rest and stay hydrated On azithromycin, call your provider if you develop new ringing in your ears, new problems hearing, dizziness, palpitations, abdominal pain, nausea, or diarrhea. Prescriptions: New azithromycin 250 mg tablet 250 mg PO DAILY 4 Days Qty: 4 0RF Rx Instructions: start on day 2 of therapy prednisone 20 mg tablet 40 mg PO DAILY 4 Days Qty: 8 0RF No Action benzonatate 200 mg capsule 200 mg PO TID PRN (Reason: cough) Qty: 14 0RF albuterol sulfate 90 mcg/actuation HFA aerosol inhaler 2 puff inhalation Q6H PRN (Reason: shortness of breath or wheezing) Qty: 8.5 0RF metoclopramide HCl [Reglan] 10 mg tablet 10 mg PO Q6H PRN (Reason: nausea and vomiting) Qty: 7 0RF cefuroxime axetil 500 mg tablet 500 mg PO BID 7 Days Qty: 14 0RF oxycodone 5 mg tablet 5 mg PO Q6H PRN (Reason: pain) Qty: 20 0RF Rx Instructions: Partial Fill upon patient request. benzonatate 200 mg capsule 200 mg PO TID PRN (Reason: cough) Qty: 30 0RF prednisone 20 mg tablet 40 mg PO DAILY 5 Days Qty: 10 0RF ketorolac 10 mg tablet 10 mg PO Q8H PRN (Reason: pain) Qty: 10 0RF Rx Instructions: Do not use this medication and any other NSAIDs, only Tylenol if needed prednisone 20 mg tablet 60 mg PO DAILY 4 Days Qty: 12 0RF acetaminophen 500 mg tablet 1,000 mg PO QID PRN (Reason: pain) Qty: 30 0RF metoclopramide HCl [Reglan] 10 mg tablet 10 mg PO Q6H Qty: 10 0RF Rx Instructions: Take approximately 30 minutes prior to a meal. Do not combine with any other anti-nausea medication. dicyclomine 10 mg capsule 10 mg PO TID PRN (Reason: abdominal pain) Qty: 7 0RF dicyclomine 10 mg capsule 10 mg PO TID Qty: 30 1RF ondansetron 4 mg tablet,disintegrating 4 mg PO Q6H PRN (Reason: nausea and vomiting) Qty: 14 0RF Stand Alone Forms: Work/School Release Interventions: ED Discharge Assessment Last Done: 08/07/25 06:20 Print Language: Gabonese
[2025-08-07 06:11] VITALS: BP 122/80; PULSE 90; RESP 16; TEMP 36.4; O2SAT 99
[2025-08-07 06:20] VITALS: BP 122/80; PULSE 90; RESP 16; TEMP 36.4; O2SAT 99
== END 2025-08-07 06:21 | disposition home or self-care (01) ==
PROVIDERS: Emergency Provider Emergency Medicine
DX: J40 Bronchitis, not specified as acute or chronic (principal); R05.9 Cough, unspecified; R68.83 Chills (without fever); R19.7 Diarrhea, unspecified; Z03.818 Encounter for observation for suspected exposure to other biological agents ruled out
CPT/HCPCS: 71045; 87502; 87635; 99283

== ENCOUNTER → 2025-08-07 04:10 | Outpatient (BNV) | payer OTHER, SELFPAY | PROVIDERS: Emergency Provider Emergency Medicine; Visit Provider Radiology Vascular & Interventional Radiology | DX: R05.9 Cough, unspecified (principal) | CPT/HCPCS: 71045 ==

== ENCOUNTER 2025-10-25 20:02 | Emergency (ER) | payer OTHER, SELFPAY ==
--- NOTE | 2025-10-25 | ECG_ITS ---
Test Reason : EPIGASTRIC PAIN Blood Pressure : */* mmHG Vent. Rate : 84 BPM Atrial Rate : 84 BPM P-R Int : 142 ms QRS Dur : 78 ms QT Int : 358 ms P-R-T Axes : 78 57 52 degrees QTcB Int : 423 ms Normal sinus rhythm Normal ECG When compared with ECG of 16-Nov-2024 10:16, No significant change was found Referred By: Generic ED Physician Electronically Signed By: REJI JACKSON
[2025-10-25 20:15] VITALS: BP 128/79; PULSE 91; RESP 16; TEMP 36.6; O2SAT 100; BMI 21.2
[2025-10-25 20:43] LABS: MANUAL DIFF FLAG NO
[2025-10-25 20:46] LABS: Hematocrit 37.1 % (37.0-47.0); Hemoglobin 12.4 g/dl (12.0-16.0); Imm Gran Abs Auto 0.02 X10*3/uL (0.00-0.03); Imm Gran Pct Auto 0.2 % (0.0-0.4); Lymphocytes Absolute Auto 2.7 X10*3/uL (1.2-4.9); Mean Corpuscular HGB Conc 33.4 g/dl (31.0-35.0); Mean Corpuscular Hemoglobin 32.0 pg (27.0-33.0); Mean Corpuscular Volume 95.9 fL (80.0-98.0); NRBC Abs Auto 0.000 X10*3/uL (0.0-0.012); NRBC Pct Auto 0.0 /100WBC (0.0-0.2); Platelet Count 257 X10*3/uL (160-400); Red Blood Count 3.87 X10*6/uL (4.20-5.50); White Blood Count 8.2 X10*3/uL (4.8-10.8)
[2025-10-25 21:00] LABS: Alanine Aminotransferase 15 U/L (0-31); Albumin Level 4.3 g/dL (3.5-5.0); Alkaline Phosphatase 58 U/L (39-117); Anion Gap 10 (12-20); Aspartate Amino Transferase 18 U/L (5-31); Blood Urea Nitrogen 13 mg/dL (9-16); Calcium 9.1 mg/dL (8.4-10.2); Carbon Dioxide 25 mmol/L (22-29); Chloride 108 mmol/L (96-108); Creatinine Clr Calc Pharmacy 90.2; Estimated Glomerular Filt Rate > 60; Lipase 41 U/L (8-78); Potassium 3.8 mmol/L (3.3-5.1); Sodium 139 mmol/L (135-145); Total Protein 7.0 g/dL (6.5-8.0)
--- NOTE | 2025-10-25 22:40 | ED_ITS ---
HPI - Abdominal Pain General Chief Complaint: Abdominal Pain Stated Complaint: Stomach Pain Time Seen by Provider: 10/25/25 22:35 History of Present Illness ED Provider: corey HPI narrative: [age] female with midepigastric pain radiating to the chest worse with belching. No vomiting. No GI bleeding reported denies trauma no fever or chills Related Data Previous Rx's ?Medication ?Instructions ?Recorded albuterol sulfate 90 mcg/actuation 2 puff inhalation Q 6H PRN 12/07/21 aerosol inhaler shortness of breath or wheez ing #8.5 grams benzonatate 200 mg capsule 200 mg PO TID PRN cough #14 caps 04/26/22 metoclopramide HCl 10 mg tablet 10 mg PO Q6H PRN nause a and 05/02/22 (Reglan) vomiting #7 tabs prednisone 20 mg tablet 60 mg (3 x 20 mg) PO DAILY 4 days 05/08/23 #12 tabs benzonatate 200 mg capsule 200 mg PO TID PRN cough #30 caps 06/16/24 cefuroxime axetil 500 mg tablet 500 mg PO BID 7 days # 14 tabs 06/16/24 oxycodone 5 mg tablet 5 mg PO Q6H PRN pain #20 tab s 06/16/24 acetaminophen 500 mg tablet 1,000 mg (2 x 500 mg) PO Q ID PRN 06/21/24 pain #30 tabs dicyclomine 10 mg capsule 10 mg PO TID PRN abdominal p ain #7 10/06/24 caps metoclopramide HCl 10 mg tablet 10 mg PO Q6H #10 tabs 10/06/24 (Reglan) prednisone 20 mg tablet 40 mg (2 x 20 mg) PO DAILY 5 days 11/16/24 #10 tabs dicyclomine 10 mg capsule 10 mg PO TID #30 caps ondansetron 4 mg disintegrating 4 mg PO Q6H PRN nausea and 02/06/25 tablet vomiting #14 tabs ketorolac 10 mg tablet 10 mg PO Q8H PRN pain #10 ta bs 07/14/25 azithromycin 250 mg tablet 250 mg PO DAILY 4 days #4 t abs 08/07/25 prednisone 20 mg tablet 40 mg (2 x 20 mg) PO DAILY 4 days 08/07/25 #8 tabs ondansetron 4 mg disintegrating 4 mg PO Q8H PRN nausea and 10/26/25 tablet vomiting #7 tabs sucralfate 100 mg/mL oral 7.5 ml PO QID 4 days #1,000 mL 10/26/25 suspension Allergies Allergy/AdvReac Type Severity Reaction Status Date / Time amitriptyline (AMITRIPTYLINE) Allergy Unknown Hallucinati Verified 10/25/25 20:17 ons [facility] Past Medical History Medical History Migraine Asthma HTN (hypertension) Surgical History Tubal ligation status Social History Social History Alcohol intake: current Alcohol intake frequency: holidays/special occasions only Patient Tobacco Use Status: Never used Tobacco Smoked in Last 30 Days: No Use of substances other than those prescribed or required for medical reasons: Yes Substance Use Type: Marijuana Advance Directives: No Advance Directives Information Provided: No Do you have a plan to hurt others: No Plan Physical Exam ED Exam Exam: EXAM: Gen: Alert, awake, well appearing, well hydrated. Head: Atraumatic Eyes: Anicteric, Normal conjunctiva. ENT: Moist mucosa, no pallor. ? Neck: Supple. Skin: ?No observable rash or bruising on exposed or examined skin Respiratory: Breathing comfortably, No distress.Clear to auscultation bilaterally, symmetric chest expansion, No wheeze, rales, ronchi. Cardiovascular: Regular rate and rhythm. No murmurs or rub. Well perfused periphery, warm extremities. No edema. ? Abdominal: No focal tenderness. Soft, no objective distension. No palpable masses or obvious organomegaly. ?No guarding, no rebound tenderness or other peritoneal findings. : No flank tenderness. Neuro: Alert. Gross movement of all extremities intact. ? Psych: Calm. Cooperative. MSK: No grossly visible deformity. Vital signs: See flowsheet Vital Signs: Vital Signs - 24 hr 10/25/25 20:15 Temperature 97.9 F Pulse Rate 91 Respiratory Rate 16 Blood Pressure 128/79 Pulse Oximetry 100 Oxygen Delivery Method Room Air BMI result Body Mass Index 21.2 Procedures Procedure Narrative Procedure Narrative: EMERGENCY ULTRASOUND INTERPRETATION- Limited Point of Care Biliary [This study was ordered, performed, and interpreted by myself. The study reveals: Impression: NO EVIDENCE OF ACUTE INFLAMMATION OF THE GALLBLADDER, NO EVIDENCE OF OBSTRUCTIVE BILIARY DISEASE] [Indication: RUQ PAIN Gallbladder: NO WALL THICKENING > 4MM, NO PERICHOLECYSTIC FLUID, NOT GROSSLY DILATED/HYDROPIC. -Additional: WALL MEASUREMENT: CBD MEASURMENT IF OBTAINED: Performed by: Mich Norris MD Images were stored CPT:[id number]] Medical Decision Making Medical Decision Making MDM Narrative: Medical Decision Making: [age] female with daily marijuana smoking history of diagnosed irritable bowel syndrome on Bentyl and PPI daily. Prior upper endoscopy without revealing findings per her verbal report. Midepigastric pain early satiety for few days now nausea without vomiting. No GI bleeding. Mildly tender in the upper abdomen mostly midepigastrium. Reassuring biliary ultrasound see my report above. Lab work reassuring no signs of pancreatitis, hepatitis, dehydration or electrolyte derangement. Doubt acute surgical pathology she looks well. Prescribed Carafate instructed her to stop so marijuana Preliminary Favored Differential Diagnosis: Gastritis, PUD, cannabis hyperemesis, dehydration, electrolyte derangement, pancreatitis among additional considered etiologies Testing Interpreted Independently: ?See below for details Radiology or Lab testing Results Reviewed: ?See below for details Consults: ?See below for details Independent Historians/External Chart Reviews: ?See below for details Social Determinants of Health Impacting MDM/Planning: ?See below for details Lab Data 10/25/25 20:31 10/25/25 20:31 Labs: Lab Results 10/25/25 Range/Units 20:31 WBC 8.2 (4.8-10.8) X10*3/uL RBC 3.87 L (4.20-5.50) X10*6/uL Hgb 12.4 (12.0-16.0) g/dl Hct 37.1 (37.0-47.0) % MCV 95.9 (80.0-98.0) fL MCH 32.0 (27.0-33.0) pg MCHC 33.4 (31.0-35.0) g/dl RDW 12.0 (11.0-16.0) % Plt Count 257 (160-400) X10*3/uL MPV 9.1 L (9.4-12.3) fL Immature Gran % (Auto) 0.2 (0.0-0.4) % Neut % (Auto) 59.9 (45-73) % Lymph % (Auto) 33.2 (20-40) % [place] % (Auto) 6.1 (2-11) % Eos % (Auto) 0.2 (0-4) % Baso % (Auto) 0.4 (0-2) % Lymph # (Auto) 2.7 (1.2-4.9) X10*3/uL [place] # (Auto) 0.5 (0.1-1.2) X10*3/uL Eos # (Auto) 0.0 (0.0-0.4) X10*3/uL Baso # (Auto) 0.0 (0.0-0.2) X10*3/uL Abs Immat Gran (auto) 0.02 (0.00-0.03) X10*3/uL Absolute Neuts (auto) 4.9 (2.0-8.3) x10*3/uL Absolute Nucleated RBC 0.000 (0.0-0.012) X10*3/uL Nucleated RBC % (auto) 0.0 (0.0-0.2) /100WBC Sodium 139 (135-145) mmol/L Potassium 3.8 (3.3-5.1) mmol/L Chloride 108 (96-108) mmol/L Carbon Dioxide 25 (22-29) mmol/L Anion Gap 10 L (12-20) BUN 13 (9-16) mg/dL Creatinine 0.73 (0.5-1.4) mg/dL Estim Creat Clear Calc 90.2 Estimated GFR > 60 Random Glucose 97 (60-115) mg/dL Calcium 9.1 (8.4-10.2) mg/dL Total Bilirubin 0.5 (0.0-1.0) mg/dL Direct Bilirubin 0.2 (0.0-0.5) mg/dL AST 18 (5-31) U/L ALT 15 (0-31) U/L Alkaline Phosphatase 58 (39-117) U/L Total Protein 7.0 (6.5-8.0) g/dL Albumin 4.3 (3.5-5.0) g/dL Lipase 41 (8-78) U/L Influenza Type A (PCR) NEGATIVE (Negative) Influenza Type B (PCR) NEGATIVE (Negative) RSV RNA Qual (PCR) NEGATIVE (Negative) SARS-CoV-2 RNA (RT-PCR) NEGATIVE (Negative) Medications Administered Discontinued Medications Generic Name Dose Route Start Last Admin Trade Name Keri PRN Reason Stop Dose Admin Al Hydroxide/Mg Hydroxide 30 ml 10/25/25 22:40 10/25/25 22:55 Magnesium Hydrox/Alum Hydrox 30 Ml Oral.Susp PO 10/25/25 22:41 30 ml ONCE ONE Administration Famotidine 20 mg 10/25/25 22:40 10/25/25 22:54 Famotidine 20 Mg Tablet PO 10/25/25 22:41 20 mg ONCE ONE Administration Lidocaine HCl 15 ml 10/25/25 22:40 10/25/25 22:55 Lidocaine Hcl Viscous 2 % 15 Ml Solution MUCOUS MEM 10/25/25 22:41 15 ml ONCE ONE Administration Discharge Plan Discharge Clinical Impression: Abdominal pain Patient Disposition: Home, Self-Care Instructions: Hyperemesis Gravidarum (ED), GERD (Gastroesophageal Reflux Disease) (ED), Acute Abdominal Pain (ED) Additional Instructions: _ DISCHARGE DIAGNOSES: Upper abdominal pain, early satiety unclear cause at this time HISTORY OF PRESENTATION: ?Upper abdominal pain and early satiety few days EMERGENCY DEPARTMENT COURSE,TESTS, TREATMENTS: While in the ED today you had tenderness in your mid upper abdomen. You had lab work that was reassuring including liver, pancreas, kidney functions electrolytes blood counts. You had an ultrasound of your gallbladder and gallbladder/liver structures with no acute abnormalities. You received Maalox lidocaine and other topical oral medications like famotidine DISCHARGE MEDICATIONS: ?[We have made no changes to your regular medication regimen] we have prescribed Carafate for the next 2 weeks to take along with your other medications continue taking dicyclomine and your omeprazole FOLLOW-UP: ?Call your primary or general physician soon as possible to discuss your symptoms, your ED visit and to discuss follow up plans Call your GI doctor soon as possible INSTRUCTIONS ?& RETURN PRECAUTIONS: If any symptoms change first call your primary physician, if it is after-hours your primary doctors office should have a provider economist research assistant you can speak with. If the symptoms are severe or very concerning to you then call 911 or return to the ED. Look into cannabis hyperemesis syndrome and consider cessation of smoking as this may improve your symptoms Mich Norris MD Emergency Physician [facility] Prescriptions: New sucralfate 100 mg/mL suspension 7.5 ml PO QID 4 Days Qty: 1000 0RF Rx Instructions: swish in mouth and swallow; use after food/drink ondansetron 4 mg tablet,disintegrating 4 mg PO Q8H PRN (Reason: nausea and vomiting) Qty: 7 0RF No Action benzonatate 200 mg capsule 200 mg PO TID PRN (Reason: cough) Qty: 14 0RF albuterol sulfate 90 mcg/actuation HFA aerosol inhaler 2 puff inhalation Q6H PRN (Reason: shortness of breath or wheezing) Qty: 8.5 0RF metoclopramide HCl [Reglan] 10 mg tablet 10 mg PO Q6H PRN (Reason: nausea and vomiting) Qty: 7 0RF cefuroxime axetil 500 mg tablet 500 mg PO BID 7 Days Qty: 14 0RF oxycodone 5 mg tablet 5 mg PO Q6H PRN (Reason: pain) Qty: 20 0RF Rx Instructions: Partial Fill upon patient request. benzonatate 200 mg capsule 200 mg PO TID PRN (Reason: cough) Qty: 30 0RF prednisone 20 mg tablet 40 mg PO DAILY 5 Days Qty: 10 0RF ketorolac 10 mg tablet 10 mg PO Q8H PRN (Reason: pain) Qty: 10 0RF Rx Instructions: Do not use this medication and any other NSAIDs, only Tylenol if needed prednisone 20 mg tablet 60 mg PO DAILY 4 Days Qty: 12 0RF acetaminophen 500 mg tablet 1,000 mg PO QID PRN (Reason: pain) Qty: 30 0RF metoclopramide HCl [Reglan] 10 mg tablet 10 mg PO Q6H Qty: 10 0RF Rx Instructions: Take approximately 30 minutes prior to a meal. Do not combine with any other anti-nausea medication. dicyclomine 10 mg capsule 10 mg PO TID PRN (Reason: abdominal pain) Qty: 7 0RF dicyclomine 10 mg capsule 10 mg PO TID Qty: 30 1RF ondansetron 4 mg tablet,disintegrating 4 mg PO Q6H PRN (Reason: nausea and vomiting) Qty: 14 0RF azithromycin 250 mg tablet 250 mg PO DAILY 4 Days Qty: 4 0RF Rx Instructions: start on day 2 of therapy prednisone 20 mg tablet 40 mg PO DAILY 4 Days Qty: 8 0RF Print Language: South Korean
--- OUTSIDE RECORDS SUMMARY | 2025-10-25 22:42 | XMS_ITS | Clinical Summary ---
Author Organization [facility] Address [address] [place] [phone] Phone Care Team Providers Care Netezza Architect Name Role Phone Calvin Chavez MD Primary [...] 2008 INFLUENZA VACCINE (#1) 2025 COVID-19 VACCINE (2024-2 6 season) 2025 CREATININE LEVEL 02/05/2026 02/05/2025, 12/18/2024, [...] Date/Time Associated Diagnosis Comments BASIC METABOLIC PANEL (BMP) STAT 02/05/2025 4:44 PM EDT from Last 3 Months or Most Recently Relevant to Health Maintenance Results * (ABNORMAL) Basic metabolic panel (02/05/2025 4:44 PM EDT) SODIUM 139 133 - 146 mmol/L [facility] CHLORIDE 105 96 - 108 mmol/L [facility] POTASSIUM 4.3 3.3 - 5.1 mmol/L [facility] CO2 23 21 - 35 mmol/L [facility] BUN 10 6 - 19 mg/dL [facility] CREATININE 0.70 0.5 - 1.5 mg/dL [facility] GLUCOSE 110(H) 70 - 99 mg/dL [facility] CALCIUM 9.7 8.4 - 10.3 mg/dL [facility] EGFR 114 >59 mL/min/1.7 3m2 [facility] Comment:Estimated glomerular filtration rate calculated using the CKD-EPI refit equation. ANION GAP 15 10 - 20 mmol/L [facility] Blood 02/05/2025 4:44 PM EDT 02/05/2025 4:47 PM EDT us Cait Rider MD, PhD LAB BLOOD BKR ORDER [place] Final Result [facility] [address] [place] [address] from Last 3 Months or Most Recently Relevant to Health Maintenance Insurance [employer] [place] [address] [place] [address] [employer] [place] [address] [place] [address] [employer] [place] [address] [place] [address] [employer] Care Teams Netezza Architect Relationship Specialty Start Date End Date Calvin Chavez MD [address] [place] [id number] PCP - General Family Medicine 12/25/23 Additional Source Comments The information contained in this document represents components of the legal health record. It is not the complete legal health record.[facility]
--- OUTSIDE RECORDS SUMMARY | 2025-10-25 22:42 | XMS_ITS | Clinical Summary ---
[facility] Organization [facility] Address [address] [place] [address] Care Team Providers Care Photographic Process Worker Name Role Phone Unavailable Primary Care Provider Unavailabl e Surgical History Surgery Date Site/Laterality Comments TUBAL LIGATION PROCEDURE: HISTORICAL TUBAL LIGATION Medical History Medical History Date Comments Hyperlipidemia DX:Hyperlipidemi a Asthma DX:Asthma Social History Tobacco Use Types Packs/Day Years Used Date Smoking Tobacco: Never Smokeless Tobacco: Never Alcohol Use Standard Drinks/Week Comments Not Currently 0 (1 standard drink = 0.6 oz pur e alcohol) Comments Unknown Sex and Gender Information Value Date Recorded Sex Assigned at Not on file Legal Sex Female 12:53 AM EST Gender Identity Not on file Sexual Orientation Not on file Obstetrics History Plan of Treatment Health Maintenance Due Date Last Done Comments DTaP,Tdap,and Td Vaccines (1 - Tdap) 2006 Hepatitis B Vaccines (1 of 3 - 19+ 3-dose series) 2006 Cervical Cancer Screening: P ap Smear 2008 HPV Vaccines (1 - 3-dose SCD M series) 2014 HIV Screening 10/25/2022 Hepatitis C Screening 10/25/2022 Social Influencers of Health Screening 10/25/2022 Depression Screening 11/22/2024 COVID-19 Vaccine ( - 2024-2 6 season) 2025 Influenza Vaccine (#1) 2025 RSV Immunization Adult Patie nts (1 - 1-dose 75+ series) 2062 HIB Vaccines Aged Out No longer eligi ble based on patient's age to complete this topic Hepatitis A Vaccines Aged Out No long er eligible based on patient's age to complete this topic IPV Vaccines Aged Out No longer eligi ble based on patient's age to complete this topic MMR Vaccines Aged Out No longer eligi ble based on patient's age to complete this topic Meningococcal ACWY Vaccine Aged Out N o longer eligible based on patient's age to complete this topic Meningococcal B Vaccine Aged Out No l onger eligible based on patient's age to complete this topic Pneumococcal Vaccine: Pediat rics (0 to 5 Years) and At-Risk Patients (6 to 49 Years) Aged Out No longer eligible b ased on patient's age to complete this topic RSV Immunization Patients Un annel 20 months Aged Out No longer eligible b ased on patient's age to complete this topic Varicella Vaccines Aged Out No longer eligible based on patient's age to complete this topic
--- OUTSIDE RECORDS SUMMARY | 2025-10-25 22:42 | XMS_ITS | Encounter Summary ---
Author Organization [facility] Address [address] [place] [address] [place] [phone] Phone Care Team Providers Care Mail Forwarding System Markup Clerk Name Role Phone Calvin Chavez MD Primary Care Provide r Encounter Details Date Type Department Care Team (Late st Contact Info) Description 02/05/2025 Procedure [facility], Ct Scan - [address] [id number] Social History Tobacco Use Types Packs/Day Years [...] 4:27 PM EDT Tanvi Fernandez RN * Alexander Suicide Severity Rating Scale (Screener/Recent Self-Report) Question [...] on filedocumented in this encounter Care Teams Mail Forwarding System Markup Clerk Relationship Specialty Start Date End Date Calvin Chavez MD [address] [place] [address] PCP - General Family Medicine 12/25/23 documented as of this encounter Additional Source Comments The information contained in this document represents components of the legal health record. It is not the complete legal health record.[facility]
[2025-10-25] MEDS: Lidocaine HCl Viscous 2 % 15 ML SOLUTION MUCOUS MEM (22:55)
[2025-10-25] MEDS: Magnesium Hydrox/Alum Hydrox 30 ML ORAL.SUSP PO (22:55)
[2025-10-26 00:17] VITALS: BP 136/95; PULSE 88; RESP 16; TEMP 36.4; O2SAT 98
== END 2025-10-26 00:18 | disposition home or self-care (01) ==
PROVIDERS: Emergency Provider Emergency Medicine; PCP Family Medicine
DX: R10.9 Unspecified abdominal pain (principal); I10 Essential (primary) hypertension; Z87.19 Personal history of other diseases of the digestive system; Z79.899 Other long term (current) drug therapy
CPT/HCPCS: 36415; 76705; 80053; 82248; 83690; 85025; 87637; 93005; 99284

== ENCOUNTER → 2025-10-25 20:27 | Outpatient (BNV) | payer OTHER, SELFPAY | PROVIDERS: Emergency Provider Emergency Medicine; PCP Family Medicine; Visit Provider Internal Medicine | DX: R10.13 Epigastric pain (principal) | CPT/HCPCS: 93010 ==